=== PATIENT | male | born 1960 | race Caucasian/White ===

== ENCOUNTER 2016-12-17 08:53 | Inpatient (IN) | payer BC ==
[~2016-12-17] VITALS: Ht 175.3 cm; Wt 80.1 kg
--- NOTE | ~2016-12-17 | PN ---
PATIENT:DYLAN SONG Abiel MEDICAL RECORD: [id number] LOCATION:[facility] ADMISSION DATE: 12/17/16 PROGRESS NOTE DATE OF SERVICE: 12/23/2016 CHIEF COMPLAINT: Better. This is a summary of progress note from 12/21/2016, 12/22/2016 and 12/23/2016. Over the course of a 3-day weekend, the patient has improved. Initially when he was advanced to a regular diet, he was having more abdominal pain and tenderness. We backed him off to a full liquid diet. He did well with that and he wants to be advanced back up to a regular diet now. I have examined the purulent drainage from the CT-guided drain. Palpation aggravates. Nothing alleviates. His symptoms are improving. He is not having any nausea or vomiting. This is a progress note addendum. For the typed portion of the progress note including the past medical and surgical history, allergies, social history as well as current medications, please see the chart. REVIEW OF SYSTEMS: No nausea, no vomiting, no fever, no chills. Positive for some mid back pain. Positive for epigastric pain as well as some tenderness. PHYSICAL EXAMINATION: GENERAL: He does appear acutely ill. He does not appear chronically ill. VITAL SIGNS: Reviewed. HEAD: External ears appear normal. EYES: Extraocular movements are intact. NECK: Trachea is midline. CHEST: No intercostal retractions. PULMONARY: Nonlabored, no stridor. ABDOMEN: Epigastric tenderness with guarding. No peritonitis to percussion. EXTREMITIES: No peripheral cyanosis. INTEGUMENT: No rash, no ulcerations. PSYCHIATRIC: Normal affect. NEUROLOGIC: Nonfocal, no lethargy. The patient answers questions appropriately, moves all extremities well. BACK: No thoracic kyphosis. LYMPHATIC: No lymphangitic streaking of the exposed extremities. Over the course of a 3-day weekend, the patient's abdominal pain and tenderness, increased and now has decreased. I am going to advance him up to a regular diet. His Protonix was oral, I am going to switch it over to IV. I have discussed this case personally with Dr. Luke Lyons his surgeon by phone this evening. TRANSINT:[id number] Voice Confirmation ID: [id number] DOCUMENT ID: [id number] PROGRESS NOTE [id number] DYLAN SONG ROBERT MD CC: [id number] DICTATION DATE: 12/23/16 1800 [employer] GRINDER: 12/24/16 0253 ADM IN [facility] [address] [id number]
[2016-12-17 09:32] LABS: BASOPHILS 0.2 % (0-2); EOSINOPHILS 0 % (0-7); HEMATOCRIT 40.1 % (42.0-54.0); HEMOGLOBIN 13.2 g/dL (13.5-17.5); IMMATURE GRANULOCYTES 0.2 % (0-5); LYMPHOCYTES 9.8 % (15-50); MCH 28.8 pg (26.0-34.0); MCHC 32.9 g/dL (31.0-37.0); MCV 87.6 fL (80.0-100.0); MEAN PLATELET VOLUME 9.1 fL (7.4-10.4); MONOCYTES 3.8 % (2-11); PLATELET COUNT 318 10x3/uL (130-400); RBC 4.58 10x6/uL (4.20-6.10); RDW 13.2 % (11.5-14.5); WBC 9.5 10x3/uL (4.8-10.8)
[2016-12-17 09:38] LABS: ALBUMIN 2.7 g/dL (3.4-5.0); ALKALINE PHOSPHATASE 82 U/L (46-116); ALT (SGPT) 49 U/L (10-68); BILIRUBIN - TOTAL 1.28 mg/dL (0.2-1.3); CALC OSMOLALITY 259 mosm/kg (275-300); CALCIUM 9.6 mg/dL (8.5-10.1); CARBON DIOXIDE 25.3 mmol/L (21.0-32.0); CHLORIDE - SERUM 90 mmol/L (98-107); CREATININE - SERUM 0.9 mg/dL (0.6-1.3); GLUCOSE 137 mg/dL (74-106); PROTEIN - SERUM 7.8 g/dL (6.4-8.2); SODIUM 129 mmol/L (136-145); UREA NITROGEN 10 mg/dL (7-18); eGFR NON AFRICAN AMERICAN > 90 mL/min (90-120)
[2016-12-17 09:42] LABS: AMYLASE - SERUM 35 U/L (25-115); LIPASE 105 U/L (73-393); TROPONIN-I < 0.017 ng/mL (0.000-0.060)
--- NOTE | 2016-12-17 15:20 | NUR ---
RECEIVED TO ROOM 2214 VIA STRETCHER FROM ER. A/O X3. C/O LOTS OF ABDOMINAL PAIN WITH ACTIVITY. REQUESTED AND GIVEN 4MG MORPHINE SLOW IVP FOR SAME. WILL MONITOR. SKIN IS INTACT WITHOUT REDNESS. DENIES NEEDS AT THIS TIME.
[2016-12-17 15:25] VITALS: BP 162/92; BMI 25.9
[2016-12-17 16:28] VITALS: BP 150/92
--- NOTE | 2016-12-17 18:00 | NUR ---
RESTING QUIETLY AT THIS TIME. DENIES NEEDS. NO CHANGES.
[2016-12-17 20:00] VITALS: BP 149/81
--- NOTE | 2016-12-17 20:00 | NUR ---
ASESSMENT PER FLOWSHEET. IV PATENT LEFT AC OF NS AT 125CC'S/HR SITE CLEAR. SENIOR UI SOFTWARE ENGINEER OF DILAUDID IN USE WITH SETTINGS AT 0.2MG Q10MIN WITH 4MG Q4H L/O.SR UP X2 CALL LIGHT WITHIN REACH.
--- NOTE | 2016-12-17 21:00 | NUR ---
MEDS GIVEN PER MAR. VOIDS IN URINAL UA SPECIMEN SENT TO LAB.
[2016-12-17 22:15] LABS: APPEARANCE CLEAR (CLEAR); BILIRUBIN NEGATIVE (NEGATIVE); COLOR DK YELLOW (YELLOW); GLUCOSE NEGATIVE (NEGATIVE); KETONE MODERATE mg/dL (NEGATIVE); LEUKOCYTE ESTERASE TRACE (NEGATIVE); NITRITE NEGATIVE (NEGATIVE); PROTEIN TRACE mg/dL (NEGATIVE); SPECIFIC GRAVITY 1.025 (1.005-1.020); UROBILINOGEN NORMAL (NORMAL)
[2016-12-17 22:16] LABS: BACTERIA MODERATE /hpf (NONE SEEN); RED CELLS - URINE 0-5 /hpf (0-5); WHITE CELLS - URINE 0-5 /hpf (0-5)
[2016-12-18] VITALS: BP 126/78
--- NOTE | 2016-12-18 | NUR ---
EYES CLOSED RESPIRATIONS WITH EASE AND UNLABORED.
[2016-12-18 04:00] VITALS: BP 128/87
[2016-12-18 06:10] LABS: APTT 30.1 SECONDS (22.8-39.4); INR 1.16 (0.85-1.17); PROTIME 14.7 SECONDS (11.6-15.0)
--- NOTE | 2016-12-18 06:28 | NUR ---
RESTING QUIETLY DENIES NEEDS.
--- NOTE | 2016-12-18 07:15 | NUR ---
REPORT RECEIVED FROM ADMITTING CLERK NURSE. CALL LIGHT IN REACH.
[2016-12-18 07:56] VITALS: BP 154/85
--- NOTE | 2016-12-18 08:10 | NUR ---
TO SPECIALS VIA BED.
[2016-12-18 08:28] LABS: BASOPHILS 0.1 % (0-2); EOSINOPHILS 0.1 % (0-7); HEMOGLOBIN 12.6 g/dL (13.5-17.5); IMMATURE GRANULOCYTES 0.3 % (0-5); LYMPHOCYTES 5.6 % (15-50); MCH 28.6 pg (26.0-34.0); MCHC 32.3 g/dL (31.0-37.0); MCV 88.4 fL (80.0-100.0); MEAN PLATELET VOLUME 9.2 fL (7.4-10.4); MONOCYTES 5.4 % (2-11); NEUTROPHILS 88.5 % (40-80); PLATELET COUNT 340 10x3/uL (130-400); RBC 4.41 10x6/uL (4.20-6.10); RDW 13.6 % (11.5-14.5); WBC 9.9 10x3/uL (4.8-10.8)
[2016-12-18 08:37] LABS: CALC OSMOLALITY 257 mosm/kg (275-300); CARBON DIOXIDE 25.6 mmol/L (21.0-32.0); CHLORIDE - SERUM 94 mmol/L (98-107); CREATININE - SERUM 0.9 mg/dL (0.6-1.3); GLUCOSE 106 mg/dL (74-106); POTASSIUM - SERUM 3.8 mmol/L (3.5-5.1); SODIUM 129 mmol/L (136-145); UREA NITROGEN 11 mg/dL (7-18); eGFR NON AFRICAN AMERICAN > 90 mL/min (90-120)
--- NOTE | 2016-12-18 09:30 | NUR ---
BACK IN ROOM AT THIS TIME.
--- NOTE | 2016-12-18 10:17 | NUR ---
AM MEDS ADMINISTERED. RIGHT ABSCESS DRAIN FLUSHED WITH 100 CC OF NS.
--- NOTE | 2016-12-18 10:43 | NUR ---
Patient Name: DYLAN SONG Admission Status: ER Accout number: [id number] Admission Date: 12-17-2016 : 1960 Admission Diagnosis: Attending: CAMERON Current LOS: 1 Anticipated DC Date: 12-20-2016 Planned Disposition: Home Primary Insurance: [employer] TRUE BLUE PPO Discharge Planning Comments: CM MET WITH PATIENT REGARDING D/C NEEDS AND PLANS. PATIENT STATED HE LIVES ALONE AND A FRIEND WILL DRIVE HIM HOME AT DISCHARGE. PATIENT STATED HIS HOME IS SAFE AND HAS 3 STEPS W/RAILS TO ENTER AND NO STAIRS INSIDE. PATIENT IS INDEPENDENT WITH HIS CARE AND HAS A WALKER IF NEEDED AT HOME. PATIENTS PCP IS DR. NANCE AND USES [facility] [place]. PATIENT IS DECLINING THE NEED OF HOME HEALTH AT THIS TIME. [facility] DR[facility] [phone] JOSE R (SISTER IN LAW) [phone] Exposure Machine Operator: Shonna Johnson Is the patient Alert and Oriented? Yes 0 * How many steps to enter\exit or inside your home? 3 R 0 * PCP DR. NANCE 0 * Pharmacy [facility] 0 * Preadmission Environment Home Alone 0 * ADLs Independent 0 * Equipment Walker 0 * List name and contact numbers for known caregivers / representatives who currently or will assist patient after discharge: JOSE R SONG [phone] * Community resources currently utilized None 0 * Additional services required to return to the preadmission environment? Yes 0 * Can the patient safely return to the preadmission environment? Yes 0 * Has this patient been hospitalized within the prior 30 days at any hospital? No 0 Grand Total: 0
--- NOTE | 2016-12-18 12:00 | NUR ---
NO NEEDS VOICED AT THIS TIME.
[2016-12-18 12:34] VITALS: BP 152/87
[2016-12-18 14:34] VITALS: Ht 175.3 cm; Wt 80.1 kg
--- NOTE | 2016-12-18 14:45 | NUR ---
DENIES ANY PAIN OR DISTRESS. CALL LIGHT IN REACH.
[2016-12-18 15:50] VITALS: BP 148/89
--- NOTE | 2016-12-18 16:30 | NUR ---
LYING IN BED WATCHING TV. NO NEEDS VOICED. CALL LIGHT IN REACH.
--- NOTE | 2016-12-18 18:20 | NUR ---
NO CHANGES IN INITIAL ASSESSMENT. CALL LIGHT IN REACH. STILL REFUSES SCDs. WILL CONTINUE WITH PLAN OF CARE.
[2016-12-18 19:00] VITALS: BP 171/95
--- NOTE | 2016-12-18 19:25 | NUR ---
SPOKE WITH DR. GORMAN ABOUT PATIENT'S REQUEST FOR FOOD. STATES HE HAS TO CONTINUE TO BE NPO EXCEPT FOR ICE CHIPS. EXPLAINED THIS TO PATIENT. VERBALIZED UNDERSTANDING.
--- NOTE | 2016-12-18 23:10 | NUR ---
REC'D PATIENT SITTING UP IN BED. ALERT AND ORIENTED X4. DENIES PAIN AT THIS TIME. NO DISTRESS NOTED. DENIED FURTHER NEEDS AT THIS TIME. INSTRUCTED TO CALL IF NEEDED ANYTHING. BED LOW, LOCKED CALL LIGHT IN REACH. WILL CONT TO MONITOR THROUGHOUT THE NIGHT.
--- NOTE | 2016-12-19 01:55 | NUR ---
RECITED IV TO LEFT HAND, IV THAT WAS IN THE LEFT FA HAD INFILTRAED AND CAME OUT, CATHETER WAS STILL INTACT. PATIENT TOLERATED WELL. DENIED FURTHER NEEDS AT THIS TIME. BED LOW, LOCKED, CALL LIGHT IN REACH.
[2016-12-19 04:00] VITALS: BP 171/95
[2016-12-19 05:28] LABS: BASOPHILS 0.1 % (0-2); EOSINOPHILS 0 % (0-7); HEMATOCRIT 34.1 % (42.0-54.0); IMMATURE GRANULOCYTES 0.3 % (0-5); LYMPHOCYTES 6.6 % (15-50); MCH 28.4 pg (26.0-34.0); MCHC 32.3 g/dL (31.0-37.0); MCV 87.9 fL (80.0-100.0); MEAN PLATELET VOLUME 9.1 fL (7.4-10.4); MONOCYTES 3.4 % (2-11); NEUTROPHILS 89.6 % (40-80); PLATELET COUNT 316 10x3/uL (130-400); RBC 3.88 10x6/uL (4.20-6.10); RDW 13.4 % (11.5-14.5); WBC 11.6 10x3/uL (4.8-10.8)
[2016-12-19 06:08] LABS: CALC OSMOLALITY 266 mosm/kg (275-300); CALCIUM 8.1 mg/dL (8.5-10.1); CARBON DIOXIDE 26.2 mmol/L (21.0-32.0); CHLORIDE - SERUM 97 mmol/L (98-107); GLUCOSE 78 mg/dL (74-106); SODIUM 134 mmol/L (136-145); UREA NITROGEN 12 mg/dL (7-18)
[2016-12-19 06:13] LABS: CREATININE - SERUM 0.6 mg/dL (0.6-1.3); eGFR NON AFRICAN AMERICAN > 90 mL/min (90-120)
[2016-12-19 07:54] VITALS: BP 182/95
--- NOTE | 2016-12-19 08:25 | NUR ---
SCHEDULED MEDICATIONS ADMINISTERED AT THIS TIME. ASSESSMENT PERFORMED PER FLOWSHEET. IV SITE PATENT AND BILIARY DRAIN PATENT. CALL LIGHT IN REACH, DENIES FURTHER NEEDS AT PRESENT TIME. RESPIRATIONS EVEN AND NON LABORED AND PT IS SELF AMBULATORY.
[2016-12-19 12:19] VITALS: BP 178/105
--- NOTE | 2016-12-19 12:37 | NUR ---
SPOKE WITH DR GREENWOOD REGARDING PT'S BLOOD PRESSURE. NO NEW ORDERS GIVEN HE SAID, "THAT IS DOWN FROM EARLIER."
[2016-12-19 15:37] VITALS: BP 170/91
--- NOTE | 2016-12-19 16:20 | NUR ---
PRN ATIVAN ADMINISTERED AT THIS TIME FOR ABDOMINAL SPASMS ON THE RIGHT SIDE. EXPLAINED TO PT THAT THIS MEDICATION COULD MAKE HIM DROWSY AND HE VERBALIZED UNDERSTANDING. CALL LIGHT IN REACH, WILL CONTINUE WITH PLAN OF CARE.
[2016-12-19 20:00] VITALS: BP 156/82
[2016-12-20] VITALS: BP 162/93
--- NOTE | 2016-12-20 02:52 | NUR ---
PT SLEEPING. RESP EVEN, UNLABORED. NO DISTRESS NOTED. CHILD [facility] WORKER FOR PAIN CONTROL. CONTINUE BEAD CUTTER'S PLAN OF CARE.
[2016-12-20 04:00] VITALS: BP 177/104
--- NOTE | 2016-12-20 06:49 | NUR ---
NO CHANGES SINCE ASSESSMENT COMPLETED.
--- NOTE | 2016-12-20 07:15 | NUR ---
REPORT RECEIVED FROM RESIDENTIAL CARE FACILITY MANAGER NURSE. CALL LIGHT IN REACH.
[2016-12-20 08:13] VITALS: BP 169/102
--- NOTE | 2016-12-20 09:57 | NUR ---
ASSESSMENT COMPLETED. NORCO PO WITH AM MEDS ADMINISTERED. REFUSES SCDs. IV SL'D. CALL LIGHT IN REACH. WILL CONTINUE WITH PLAN OF CARE.
[2016-12-20 11:58] VITALS: BP 170/99
[2016-12-20 16:10] VITALS: BP 188/103
--- NOTE | 2016-12-20 19:49 | NUR ---
ASSUMED CARE OF PATIENT. AAO TIMES 4 DENIES NEEDS OR PAIN. BED LOW CL IN REACH.
[2016-12-20 20:00] VITALS: BP 170/95
[2016-12-21] VITALS: BP 162/91
--- NOTE | 2016-12-21 01:25 | NUR ---
PATIENT RESTING WITH EYES CLOSED AND NO VISIBLE SIGNS OF DISTRESS. BED IN LOWEST POSITION AND CALL LIGHT WITHIN REACH.
[2016-12-21 04:00] VITALS: BP 178/91
[2016-12-21 06:05] LABS: BASOPHILS 0.2 % (0-2); EOSINOPHILS 0.1 % (0-7); HEMATOCRIT 35.9 % (42.0-54.0); HEMOGLOBIN 11.7 g/dL (13.5-17.5); IMMATURE GRANULOCYTES 0.5 % (0-5); LYMPHOCYTES 11.4 % (15-50); MCH 28.2 pg (26.0-34.0); MCHC 32.6 g/dL (31.0-37.0); MCV 86.5 fL (80.0-100.0); MEAN PLATELET VOLUME 8.8 fL (7.4-10.4); MONOCYTES 9.8 % (2-11); RBC 4.15 10x6/uL (4.20-6.10); RDW 13.4 % (11.5-14.5); WBC 9.2 10x3/uL (4.8-10.8)
[2016-12-21 06:08] LABS: PLATELET COUNT 388 10x3/uL (130-400)
[2016-12-21 06:19] LABS: CALC OSMOLALITY 262 mosm/kg (275-300); CALCIUM 8.5 mg/dL (8.5-10.1); CARBON DIOXIDE 28.1 mmol/L (21.0-32.0); CHLORIDE - SERUM 94 mmol/L (98-107); CREATININE - SERUM 0.6 mg/dL (0.6-1.3); GLUCOSE 97 mg/dL (74-106); SODIUM 132 mmol/L (136-145); UREA NITROGEN 7 mg/dL (7-18); eGFR NON AFRICAN AMERICAN > 90 mL/min (90-120)
[2016-12-21 06:23] LABS: POTASSIUM - SERUM 2.9 mmol/L (3.5-5.1)
--- NOTE | 2016-12-21 06:47 | NUR ---
PATIENT PLACED ON ELECTROLYTE PROTOCOL FOR HIS POTASSIUM LEVEL BEING 2.9.
--- NOTE | 2016-12-21 07:30 | NUR ---
RECIEVED PT DURING WALKING ROUNDS. PT RESTING IN BED WITH NO COMPLAINTS OF PAIN OR DISCOMFORT AT THIS TIME. ASSESSMENT DONE PER FLOWSHEET. BED IN LOW POSITION AND CALL LIGHT WITHIN REACH. WILL CONTINUE TO MONITOR.
[2016-12-21 08:49] VITALS: BP 166/103
[2016-12-21 12:19] VITALS: BP 147/91
--- NOTE | 2016-12-21 14:15 | NUR ---
FLUSHED BILI DRAIN AT THIS TIME PER ORDER. PT TOLERATED WELL. BED IN LOW POSITION AND CALL LIGHT WITHIN REACH. WILL CONTINUE TO MONITOR.
[2016-12-21 16:37] VITALS: BP 153/102
[2016-12-21 20:00] VITALS: BP 172/97
[2016-12-22] VITALS: BP 156/93
[2016-12-22 04:00] VITALS: BP 173/76
--- NOTE | 2016-12-22 04:00 | NUR ---
PATIENT SLEEPING WITH NO DISTRESS NOTED. AGREE WITH FOOT GATHERER ASSEESSMENT.
--- NOTE | 2016-12-22 06:32 | NUR ---
DR HOU INFORMED OF PLATELET COUNT DROPPED FROM 21-20 DURING THE NIGHT
--- NOTE | 2016-12-22 07:30 | NUR ---
RECIEVED PT DURING WALKING ROUNDS. PT RESTING IN BED WITH COMPLAINTS OF PAIN OF A 2 ON A SCALE OF 1-10. ASSESSMENT DONE PER FLOWSHEET, BED IN LOW POSITION AND CALL LIGHT WITHIN REACH, WILL CONTINUE TO MONITOR.
[2016-12-22 08:06] LABS: BASOPHILS 0.1 % (0-2); EOSINOPHILS 0.2 % (0-7); HEMATOCRIT 35.8 % (42.0-54.0); HEMOGLOBIN 11.8 g/dL (13.5-17.5); IMMATURE GRANULOCYTES 0.9 % (0-5); LYMPHOCYTES 11.4 % (15-50); MCH 28.3 pg (26.0-34.0); MCV 85.9 fL (80.0-100.0); MEAN PLATELET VOLUME 8.5 fL (7.4-10.4); MONOCYTES 10.6 % (2-11); NEUTROPHILS 76.8 % (40-80); PLATELET COUNT 368 10x3/uL (130-400); RBC 4.17 10x6/uL (4.20-6.10); RDW 13.7 % (11.5-14.5); WBC 10.6 10x3/uL (4.8-10.8)
[2016-12-22 08:22] LABS: ALBUMIN 1.9 g/dL (3.4-5.0); ALKALINE PHOSPHATASE 38 U/L (46-116); ALT (SGPT) 21 U/L (10-68); CALC OSMOLALITY 262 mosm/kg (275-300); CARBON DIOXIDE 28.9 mmol/L (21.0-32.0); CHLORIDE - SERUM 96 mmol/L (98-107); CREATININE - SERUM 0.6 mg/dL (0.6-1.3); GLUCOSE 96 mg/dL (74-106); POTASSIUM - SERUM 3.5 mmol/L (3.5-5.1); PROTEIN - SERUM 6.4 g/dL (6.4-8.2); SODIUM 132 mmol/L (136-145); UREA NITROGEN 6 mg/dL (7-18); eGFR NON AFRICAN AMERICAN > 90 mL/min (90-120)
[2016-12-22 09:29] VITALS: BP 185/95
--- NOTE | 2016-12-22 12:10 | NUR ---
PT RESTING IN BED WITH COMPLAINTS OF SLIGHT PAIN IN THE RIGHT FLANK AREA OF A 3 ON A SCALE OF 1-10. NO PAIN MEDICATION TO BE GIVEN AT THIS TIME. PT STATES AT THIS TIME THAT HE IS FINALLY ABLE TO PASS SOME GAS AND FEELS SLIGHT RELIEF FROM DOING SO. BED IN LOW POSITION AND CALL LIGHT WITHIN REACH. WILL CONTINUE TO MONITOR.
[2016-12-22 12:46] VITALS: BP 156/95
[2016-12-22 16:29] VITALS: BP 172/97
[2016-12-22 19:50] VITALS: BP 178/101
--- NOTE | 2016-12-22 19:50 | NUR ---
ASSESSMENT COMPLETED NO ACUTE DISTRESS NOTED, BILI DRAIN IN PLACE TO R SIDE, NO DRAINAGE OBSERVED AT THIS TIME, REFUSES SCD'S, DENIES NEEDS, SR'S UP, CL IN REACH
--- NOTE | 2016-12-22 20:02 | NUR ---
PRN NORCO GIVEN FOR C/O SIDE PAIN 10/04 ALONG WITH ROUTINE MOM, BILI DRAIN FLUSHED WITH 10CC NS, MIGUELINA WELL, DENIES NEEDS AT THIS TIME, SR UP, CL IN REACH
--- NOTE | 2016-12-22 21:39 | NUR ---
BP CONTINUES TO BE ELEVATED, PT ASYMPTOMATIC, C/O SPASMS IN R SIDE AND BEING FRUSTRATED, PRN ATIVAN GIVEN PER SEP, MIGUELINA WELL, WILL MONITOR
--- NOTE | 2016-12-22 23:10 | NUR ---
DR GORMAN CONTACTED ABOUT ELEVATED BP, PRN HYDRALAZINE GIVEN PER ORDERS, MIGUELINA WELL, WILL CONTINUE TO MONITOR
[2016-12-23 01:43] VITALS: BP 175/99
--- NOTE | 2016-12-23 02:39 | NUR ---
BP 172/100, PRN APRESSOLINE GIVEN PER ORDERS ALONG WITH NORCO PER REQUEST FOR SIDE PAIN, MIGUELINA WELL, SR'S UP, CL IN REACH
[2016-12-23 06:20] VITALS: BP 159/93
--- NOTE | 2016-12-23 07:05 | NUR ---
PT REC'D FROM [facility]. RESTING IN BED WITH EYES CLOSED. EASILY AROUSED. AAOX4. NO COMPLAINTS OF PAIN. BILI DRAIN TO R LOWER ABD HAS NO DRAINAGE IN IT AT THIS TIME. DRESSING AROUND INSERTION SITE FREE OF REDNESS AND SWELLING. PIV TO L FA FREE OF REDNESS AND SWELLING. BED LOW, CALL LIGHT IN REACH, DENIES NEEDS. CPOC.
[2016-12-23 08:40] VITALS: BP 164/71
--- NOTE | 2016-12-23 09:30 | NUR ---
MORNING MEDS PASSED AT THIS TIME. PT RESTING IN BED WITH EYES CLOSED, BUT EASILY AROUSED. STILL NO OUTPUT IN BILIDRAIN. BED LOW, CALL LIGHT IN REACH, DENIES NEEDS. CPOC.
--- NOTE | 2016-12-23 11:32 | NUR ---
PT UP AMBULATING AROUND ROOM TO BATHROOM. NO COMPLAINTS. DENIES NEEDS AT THIS TIME.
[2016-12-23 12:44] VITALS: BP 169/101
[2016-12-23 17:24] VITALS: BP 184/99
--- NOTE | 2016-12-23 19:30 | NUR ---
SITTING UP IN BED WATCHING TV, ASSESSMENT COMPLETED, NO ACUTE DISTRESS NOTED, DRAIN TO R SIDE TO GRAVITY, DENIES PAIN OR NEEDS AT THIS TIME, FALL PRECAUTIONS IN PLACE, CL IN REACH, WILL MONITOR
[2016-12-23 20:00] VITALS: BP 186/101
--- NOTE | 2016-12-23 21:33 | NUR ---
PRN NORCO GIVEN FOR C/O R SIDE PAIN, REFUSED MOM, PRN APRESSOLINE GIVEN FOR BP 186/101, PT ASYPMTOMATIC, NO DISTRESS NOTED, BILI DRAIN FLUSHED PER ORDERS, MIGUELINA WELL, CL IN REACH
--- NOTE | 2016-12-23 23:20 | NUR ---
RESTING WITH EYES CLOSED, RESP WITH EASE, NO ACUTE DISTRESS NOTED, FALL PRECAUTIONS IN PLACE, CL IN REACH
[2016-12-24] VITALS: BP 141/83
[2016-12-24 05:18] LABS: BASOPHILS 0 % (0-2); EOSINOPHILS 0.1 % (0-7); HEMATOCRIT 35.9 % (42.0-54.0); HEMOGLOBIN 11.8 g/dL (13.5-17.5); IMMATURE GRANULOCYTES 0.9 % (0-5); LYMPHOCYTES 11.6 % (15-50); MCH 28.2 pg (26.0-34.0); MCHC 32.9 g/dL (31.0-37.0); MCV 85.7 fL (80.0-100.0); MEAN PLATELET VOLUME 8.8 fL (7.4-10.4); MONOCYTES 9.2 % (2-11); NEUTROPHILS 78.2 % (40-80); RBC 4.19 10x6/uL (4.20-6.10); RDW 13.7 % (11.5-14.5); WBC 10.2 10x3/uL (4.8-10.8)
[2016-12-24 05:26] LABS: PLATELET COUNT 521 10x3/uL (130-400)
[2016-12-24 05:28] LABS: ALBUMIN 1.8 g/dL (3.4-5.0); ALKALINE PHOSPHATASE 33 U/L (46-116); ALT (SGPT) 18 U/L (10-68); CALC OSMOLALITY 258 mosm/kg (275-300); CALCIUM 8.6 mg/dL (8.5-10.1); CARBON DIOXIDE 27.6 mmol/L (21.0-32.0); CHLORIDE - SERUM 95 mmol/L (98-107); CREATININE - SERUM 0.6 mg/dL (0.6-1.3); GLUCOSE 103 mg/dL (74-106); MAGNESIUM - SERUM 2.1 mg/dL (1.8-2.4); PHOSPHOROUS 4.2 mg/dL (2.5-4.9); POTASSIUM - SERUM 3.4 mmol/L (3.5-5.1); SODIUM 130 mmol/L (136-145); UREA NITROGEN 6 mg/dL (7-18); eGFR NON AFRICAN AMERICAN > 90 mL/min (90-120)
--- NOTE | 2016-12-24 07:39 | NUR ---
PT REC'D FROM BETY NIXON. RESTING IN BED WITH EYES CLOSED. NO SIGNS OF DISTRESS. RESP EVEN AND UNLABORED. BED LOW, CALL LIGHT IN REACH, DENIES NEEDS. CPOC.
[2016-12-24 07:54] VITALS: BP 160/87
--- NOTE | 2016-12-24 08:00 | NUR ---
PT HERE FOR FERFORATED VISCUS FOR THIS VISIT IV TO LEFT FOREARM PATENT AND INTACT BILI DRAIN TO RIGHT SIDE PATENT AND INTACT PT DENIES NEEDS AT THIS TIME. BED ON LOWEST SETTING CALL LIGHT WITHIN REACH WILL CONTINUE TO MONITOR
--- NOTE | 2016-12-24 08:30 | NUR ---
MORNING MEDS PASSED AT THIS TIME. RESTING IN BED EATING BREAKFAST. NO COMPLAINTS OF PAIN. BED LOW, CALL LIGHT IN REACH, DENIES NEEDS. CPOC.
--- NOTE | 2016-12-24 10:28 | NUR ---
PT BEING ESCORTED VIA WC TO HAVE CT DONE.
--- NOTE | 2016-12-24 10:36 | NUR ---
PT RETURNED TO ROOM FROM CT SCAN VIA WC. ABLE TO AMBULATE TO BED WITHOUT DIFFICULTY.
[2016-12-24 12:03] VITALS: BP 151/86
[2016-12-24] MEDS ORDERED: LEVAQUIN750 MG PO (15:03)
[2016-12-24] MEDS ORDERED: PROTONIX40 MG PO (15:04)
[2016-12-24 16:00] VITALS: BP 139/76
--- NOTE | 2016-12-24 18:54 | NUR ---
DC INSTRUCTIONS AND FOLLOW UP APPOINTMENTS DISCUSSED AT THIS TIME. NO QUESTIONS OR CONCERNS VOICED. IV TO R FA DC'D WITH CATHETER INTACT. DC PAPERS SIGNED. ESCORTED OUT VIA WC.
== END 2016-12-24 18:56 | disposition home or self-care (01) | DRG 380 ==
LOC: D.ER 08:53 → D.MS 13:39
PROVIDERS: Emergency Medicine; Family Medicine; Radiology Diagnostic Radiology; Surgery; ADMIT Surgery
PROC: 0W9G30Z Drainage of Peritoneal Cavity with Drainage Device, Percutaneous Approach (ICD-10-PCS; principal; 2016-12-18 08:50)
DX: K26.5 Chronic or unspecified duodenal ulcer with perforation (principal); K65.1 Peritoneal abscess; F17.200 Nicotine dependence, unspecified, uncomplicated

== ENCOUNTER 2016-12-31 10:17 | Inpatient (IN) | payer BC ==
[~2016-12-31] VITALS: Ht 175.3 cm; Wt 77.5 kg
[~2016-12-31 10:17] MED LIST: LEVAQUIN750 MG PO; PROTONIX40 MG PO
[2016-12-31 11:14] LABS: BASOPHILS 0.1 % (0-2); EOSINOPHILS 0 % (0-7); HEMOGLOBIN 12.9 g/dL (13.5-17.5); IMMATURE GRANULOCYTES 0.3 % (0-5); LYMPHOCYTES 12.6 % (15-50); MCH 28.2 pg (26.0-34.0); MCHC 33.1 g/dL (31.0-37.0); MCV 85.2 fL (80.0-100.0); MEAN PLATELET VOLUME 8.8 fL (7.4-10.4); MONOCYTES 8.4 % (2-11); NEUTROPHILS 78.6 % (40-80); PLATELET COUNT 560 10x3/uL (130-400); RBC 4.58 10x6/uL (4.20-6.10); RDW 14.2 % (11.5-14.5); WBC 9.2 10x3/uL (4.8-10.8)
[2016-12-31 11:35] LABS: ALBUMIN 3.2 g/dL (3.4-5.0); ALKALINE PHOSPHATASE 50 U/L (46-116); ALT (SGPT) 19 U/L (10-68); BILIRUBIN - TOTAL 0.67 mg/dL (0.2-1.3); CALC OSMOLALITY 261 mosm/kg (275-300); CALCIUM 9.8 mg/dL (8.5-10.1); CARBON DIOXIDE 27.4 mmol/L (21.0-32.0); CHLORIDE - SERUM 90 mmol/L (98-107); CREATININE - SERUM 0.7 mg/dL (0.6-1.3); GLUCOSE 118 mg/dL (74-106); POTASSIUM - SERUM 4.2 mmol/L (3.5-5.1); PROTEIN - SERUM 8.1 g/dL (6.4-8.2); SODIUM 129 mmol/L (136-145); UREA NITROGEN 17 mg/dL (7-18); eGFR NON AFRICAN AMERICAN > 90 mL/min (90-120)
[2016-12-31 15:29] LABS: APPEARANCE CLEAR (CLEAR); BACTERIA NONE SEEN /hpf (NONE SEEN); BILIRUBIN NEGATIVE (NEGATIVE); COLOR YELLOW (YELLOW); EPITHELIAL CELLS NSEEN /hpf (0-5); GLUCOSE NEGATIVE (NEGATIVE); KETONE MODERATE mg/dL (NEGATIVE); LEUKOCYTE ESTERASE NEGATIVE (NEGATIVE); NITRITE NEGATIVE (NEGATIVE); PROTEIN 1+ mg/dL (NEGATIVE); RED CELLS - URINE OCC /hpf (0-5); SPECIFIC GRAVITY 1.015 (1.005-1.020); UROBILINOGEN NORMAL (NORMAL); WHITE CELLS - URINE NSEEN /hpf (0-5)
--- NOTE | 2016-12-31 17:15 | NUR ---
TO ROOM 2215 FROM ER VIA WHEELCHAIR.PT WITHOUT DISTRESS.NGT TO LIWS WITH MINIMAL DRAINAGE COMING THROUGH TUBE.ORDERS INITIATED ORDERED.IV SITED TO LEFT FOREARM X1 STICK USING ASEPTIC TECH,22G FOR PROTONIX DRIP.ORIENTATION TO ROOM.CALL LIGHT IN REACH
[2016-12-31 18:48] VITALS: BP 158/92; BMI 25.9
[2016-12-31 20:00] VITALS: BP 134/84
[2017-01-01 04:00] VITALS: BP 152/81
[2017-01-01 05:18] LABS: BASOPHILS 0 % (0-2); EOSINOPHILS 0.4 % (0-7); HEMATOCRIT 35.5 % (42.0-54.0); HEMOGLOBIN 11.6 g/dL (13.5-17.5); IMMATURE GRANULOCYTES 0.3 % (0-5); LYMPHOCYTES 4.1 % (15-50); MCH 28.2 pg (26.0-34.0); MCHC 32.7 g/dL (31.0-37.0); MCV 86.4 fL (80.0-100.0); MEAN PLATELET VOLUME 8.8 fL (7.4-10.4); MONOCYTES 11.5 % (2-11); NEUTROPHILS 83.7 % (40-80); PLATELET COUNT 456 10x3/uL (130-400); RBC 4.11 10x6/uL (4.20-6.10); RDW 14.3 % (11.5-14.5)
[2017-01-01 05:30] LABS: WBC 6.8 10x3/uL (4.8-10.8)
[2017-01-01 05:39] LABS: ALKALINE PHOSPHATASE 38 U/L (46-116); CALC OSMOLALITY 266 mosm/kg (275-300); CALCIUM 8.2 mg/dL (8.5-10.1); CARBON DIOXIDE 27.5 mmol/L (21.0-32.0); CHLORIDE - SERUM 98 mmol/L (98-107); GLUCOSE 90 mg/dL (74-106); MAGNESIUM - SERUM 1.9 mg/dL (1.8-2.4); PHOSPHOROUS 3.4 mg/dL (2.5-4.9); POTASSIUM - SERUM 3.8 mmol/L (3.5-5.1); PRE-ALBUMIN 15.5 mg/dL (18.0-35.7); SODIUM 133 mmol/L (136-145); UREA NITROGEN 14 mg/dL (7-18)
[2017-01-01 05:40] LABS: ALBUMIN 2.3 g/dL (3.4-5.0); ALT (SGPT) 14 U/L (10-68); CREATININE - SERUM 0.5 mg/dL (0.6-1.3); PROTEIN - SERUM 5.8 g/dL (6.4-8.2); eGFR NON AFRICAN AMERICAN > 90 mL/min (90-120)
[2017-01-01 06:26] LABS: HELICOBACTER PYLORI IGG NEGATIVE (NEGATIVE)
--- NOTE | 2017-01-01 07:30 | NUR ---
ASSESSMENT COMPLETE. IV TO L FA PATENT. NS INFUSING AT 125 CC/HR VIA PUMP. BILLING MANAGER DILAUDID 0.2-10-0 IN USE FOR PAIN CONTROL. IV TO L FA PATENT. PROTONIX INFUSING AT 10 CC/HR VIA PUMP. NG TO LIS WITH ORANGISH COLORED DRAINAGE NOTED IN CANNISTER.
[2017-01-01 07:49] VITALS: BP 140/82
--- NOTE | 2017-01-01 09:00 | NUR ---
RESTING QUIETLY IN BED. DENIES ANY NEEDS AT PRESENT.
[2017-01-01 10:44] VITALS: Ht 175.3 cm; Wt 77.5 kg
--- NOTE | 2017-01-01 11:00 | NUR ---
AMBULATING IN HALLWAY.
[2017-01-01 12:19] VITALS: BP 170/92
--- NOTE | 2017-01-01 13:55 | NUR ---
NG TUBE DC'D. TIP INTACT. TOLERATED WELL. DENIES ANY NEEDS AT PRESENT.
--- NOTE | 2017-01-01 13:59 | NUR ---
* Is the patient Alert and Oriented? Yes 0 * How many steps to enter\exit or inside your home? 3 0 * PCP MAMADOU 0 * Pharmacy [facility] [address] [place] 0 * Preadmission Environment Home Alone 0 * ADLs Independent 0 * Equipment None 0 * List name and contact numbers for known caregivers / representatives who currently or will assist patient after discharge: MICHEL PAREKH 0 * Community resources currently utilized None 0 * Additional services required to return to the preadmission environment? No 0 * Can the patient safely return to the preadmission environment? Yes 0 * Has this patient been hospitalized within the prior 30 days at any hospital? Yes 0 Grand Total: 0 Patient Name: DYLAN SONG Admission Status: ER Accout number: [id number] Admission Date: 12-31-2016 : 1960 Admission Diagnosis: Attending: VINCENZO Current LOS: 1 Anticipated DC Date: 01-03-2017 Planned Disposition: Home Primary Insurance: [employer] TRUE BLUE PPO Discharge Planning Comments: CM met with patient to assess discharge planning/needs. Patient lives home alone and states that his friend Michel Parekh will be the one to drive him home. He states that his environment is safe to return home too. Patient refuses HH at this time. CM will continue to follow and assist as needed with discharge planning/needs. PCP: mamadou Pharmacy: [facility] [address] Michel Parekh (ice delivery driver) Vp Marketing: Vielka Mitchell
--- NOTE | 2017-01-01 14:30 | NUR ---
TOLERATED CLEAR LIQUID DIET AT THIS TIME.
[2017-01-01 15:35] VITALS: BP 174/90
[2017-01-01 20:00] VITALS: BP 166/90
--- NOTE | 2017-01-01 20:00 | NUR ---
ASSESSMENT PER FLOWSHEET. IV PATENT LEFT ARM OF NS AT 125CC'S/HR SITE CLEAR. PROTONIX GTT AT 10 CC'S/HR. AMMONIUM NITRATE NEUTRALIZER OF DILAUDID IN USE WITH SETTINGS AT 0.2MG Q10MIN WITH NO L/O. SR UP X2 CALL LIGHT WITHIN REACH. TAKING PO FLUIDS WELL.
--- NOTE | 2017-01-01 22:00 | NUR ---
MEDS PER MAR.
--- NOTE | 2017-01-02 | NUR ---
EYES CLOSED RESPIRATIONS WITH EASE AND UNLABORED. DENIES NEEDS.
--- NOTE | 2017-01-02 03:30 | NUR ---
RESTING QUIETLY DENIES NEEDS. BODY IN GOOD ALIGNMENT.
[2017-01-02 04:00] VITALS: BP 173/97
--- NOTE | 2017-01-02 07:30 | NUR ---
ASSESSMENT COMPLETE. IV'S TO L FA BOTH WITH REDNESS AND TENDERNESS. IV'S REMOVED. CATHETER TIPS INTACT. CLINICAL OFFICE TECHNICIAN DILAUID 0.2-10-0 IN USE FOR PAIN CONTROL.
[2017-01-02 07:55] VITALS: BP 163/91
--- NOTE | 2017-01-02 08:05 | NUR ---
PATIENT RESTING IN BED. PATIENT IS AWAKE, ALERT, AND ORIENTED X4. NEW IV RESITED USING A 22 G CATHETER NEEDLE X 2 ATTEMPTS IN PATIENT'S RIGHT FOREARM. PATIENT TOLERATED WELL. BED LINENS CHANGED. PATIENT DENIES ANY FURTHER NEEDS. CALL LIGHT IN PATIENT'S REACH. WILL MONITOR.
--- NOTE | 2017-01-02 08:15 | NUR ---
OFF FLOOR TO XRAY VIA WC.
--- NOTE | 2017-01-02 10:00 | NUR ---
IV RECONNECTED TO FLUIDS AND ANTIBIOTICS. PATIENT WAS REFUSING TO HAVE IV CONNECTED UNTIL RETURNING FROM XRAY, UNTIL FINISHED EATING BREAKFAST, UNTIL FINISHED SHOWERING AND SHAVING. VISITING WITH COMPANY.
[2017-01-02 11:21] LABS: BASOPHILS 0.1 % (0-2); EOSINOPHILS 0 % (0-7); HEMATOCRIT 35.4 % (42.0-54.0); HEMOGLOBIN 11.4 g/dL (13.5-17.5); IMMATURE GRANULOCYTES 0.2 % (0-5); LYMPHOCYTES 7.6 % (15-50); MCH 28.3 pg (26.0-34.0); MCHC 32.2 g/dL (31.0-37.0); MCV 87.8 fL (80.0-100.0); MEAN PLATELET VOLUME 8.7 fL (7.4-10.4); MONOCYTES 10.3 % (2-11); NEUTROPHILS 81.8 % (40-80); PLATELET COUNT 395 10x3/uL (130-400); RBC 4.03 10x6/uL (4.20-6.10)
[2017-01-02 11:23] LABS: WBC 9.5 10x3/uL (4.8-10.8)
[2017-01-02 11:28] LABS: ALBUMIN 2.4 g/dL (3.4-5.0); ALKALINE PHOSPHATASE 38 U/L (46-116); ALT (SGPT) 14 U/L (10-68); BILIRUBIN - TOTAL 0.62 mg/dL (0.2-1.3); CALC OSMOLALITY 262 mosm/kg (275-300); CALCIUM 8.5 mg/dL (8.5-10.1); CARBON DIOXIDE 28.2 mmol/L (21.0-32.0); CHLORIDE - SERUM 95 mmol/L (98-107); CREATININE - SERUM 0.6 mg/dL (0.6-1.3); GLUCOSE 91 mg/dL (74-106); POTASSIUM - SERUM 3.5 mmol/L (3.5-5.1); PROTEIN - SERUM 6.2 g/dL (6.4-8.2); SODIUM 132 mmol/L (136-145); eGFR NON AFRICAN AMERICAN > 90 mL/min (90-120)
[2017-01-02 11:34] LABS: UREA NITROGEN 8 mg/dL (7-18)
[2017-01-02 12:10] VITALS: BP 155/92
--- NOTE | 2017-01-02 14:00 | NUR ---
DENIES ANY NEEDS AT PRESENT. REPORTS PASSING FLATUS ONCE TODAY. DENIES ANY COMPLAINTS OF NAUSEA OR PAIN AT THIS TIME.
[2017-01-02 15:44] VITALS: BP 162/91
--- NOTE | 2017-01-02 18:04 | NUR ---
DENIES ANY NEEDS AT PRESENT. REPORTS ABDOMEN FEELING FULL. DENIES ANY NEEDS AT PRESENT.
[2017-01-02 20:00] VITALS: BP 178/91
[2017-01-03] VITALS: BP 165/88
[2017-01-03 04:00] VITALS: BP 151/92
[2017-01-03 06:03] LABS: BASOPHILS 0.1 % (0-2); EOSINOPHILS 0.3 % (0-7); HEMATOCRIT 32.3 % (42.0-54.0); HEMOGLOBIN 10.5 g/dL (13.5-17.5); IMMATURE GRANULOCYTES 0.3 % (0-5); LYMPHOCYTES 16.2 % (15-50); MCH 27.8 pg (26.0-34.0); MCHC 32.5 g/dL (31.0-37.0); MONOCYTES 12.5 % (2-11); NEUTROPHILS 70.6 % (40-80); PLATELET COUNT 346 10x3/uL (130-400); RBC 3.78 10x6/uL (4.20-6.10); RDW 13.9 % (11.5-14.5); WBC 7.5 10x3/uL (4.8-10.8)
[2017-01-03 06:13] LABS: MCV 85.4 fL (80.0-100.0)
[2017-01-03 07:07] LABS: ALKALINE PHOSPHATASE 34 U/L (46-116); ALT (SGPT) 13 U/L (10-68); CALC OSMOLALITY 261 mosm/kg (275-300); CALCIUM 7.9 mg/dL (8.5-10.1); CARBON DIOXIDE 24.7 mmol/L (21.0-32.0); CHLORIDE - SERUM 97 mmol/L (98-107); CREATININE - SERUM 0.4 mg/dL (0.6-1.3); GLUCOSE 72 mg/dL (74-106); POTASSIUM - SERUM 3.3 mmol/L (3.5-5.1); PROTEIN - SERUM 5.4 g/dL (6.4-8.2); SODIUM 133 mmol/L (136-145); UREA NITROGEN 3 mg/dL (7-18); eGFR NON AFRICAN AMERICAN > 90 mL/min (90-120)
--- NOTE | 2017-01-03 07:30 | NUR ---
ASSESSMENT COMPLETE. IV TO R FA PATENT. NS INFUSING AT 125 CC/HR VIA PUMP. LOSS PREVENTION OPERATIONS MANAGER DILAUDID 0.2-10-0 IN USE FOR PAIN CONTROL. DENIES ANY COMPLAINT OF PAIN OR NAUSEA AT THIS TIME.
--- NOTE | 2017-01-03 07:31 | NUR ---
REC'D. AT CHGE OF SHIFT EYES CLOSED RESP. DEEP AND EVEN.WILL CONTINUE TO MONITOR FOR ANY CHGES AND FOLLOW CURRENT PLAN OF CARE.
[2017-01-03 08:16] VITALS: BP 168/88
--- NOTE | 2017-01-03 10:00 | NUR ---
DENIES ANY NEEDS AT PRESENT. TOLERATING CLEAR LIQUID DIET.
--- NOTE | 2017-01-03 12:32 | NUR ---
NUTRITION MONITORING & EVAL CHART REVIEWED. STARTED ON CLEAR LIQUID DIET. WILL MONITOR DIET ADVANCEMENT. PT PROGRESS. RD FOLLOWING
[2017-01-03 12:37] VITALS: BP 142/82
--- NOTE | 2017-01-03 14:00 | NUR ---
AMBULATING IN HALLWAY. DENIES ANY NEEDS AT PRESENT.
[2017-01-03 16:48] VITALS: BP 132/74
--- NOTE | 2017-01-03 18:29 | NUR ---
SITTING UP IN CHAIR. TOLERATING FULL LIQUID DIET AT THIS TIME.
[2017-01-03 20:00] VITALS: BP 159/70
[2017-01-04] VITALS: BP 163/97
[2017-01-04 04:00] VITALS: BP 185/92
--- NOTE | 2017-01-04 05:40 | NUR ---
NOTIFIED BY RENAN HAILE THAT PATIENT'S BP IS 185/92
[2017-01-04 06:49] LABS: BASOPHILS 0.2 % (0-2); EOSINOPHILS 0.5 % (0-7); HEMATOCRIT 34.5 % (42.0-54.0); HEMOGLOBIN 11.5 g/dL (13.5-17.5); IMMATURE GRANULOCYTES 0.2 % (0-5); LYMPHOCYTES 16.6 % (15-50); MCH 28.2 pg (26.0-34.0); MCHC 33.3 g/dL (31.0-37.0); MCV 84.6 fL (80.0-100.0); MEAN PLATELET VOLUME 8.6 fL (7.4-10.4); MONOCYTES 12.6 % (2-11); NEUTROPHILS 69.9 % (40-80); PLATELET COUNT 340 10x3/uL (130-400); RBC 4.08 10x6/uL (4.20-6.10); RDW 13.9 % (11.5-14.5); WBC 6.3 10x3/uL (4.8-10.8)
[2017-01-04 07:03] LABS: ALKALINE PHOSPHATASE 37 U/L (46-116); ALT (SGPT) 11 U/L (10-68); BILIRUBIN - TOTAL 0.63 mg/dL (0.2-1.3); CALCIUM 7.9 mg/dL (8.5-10.1); CARBON DIOXIDE 24.7 mmol/L (21.0-32.0); CHLORIDE - SERUM 97 mmol/L (98-107); CREATININE - SERUM 0.4 mg/dL (0.6-1.3); GLUCOSE 78 mg/dL (74-106); PROTEIN - SERUM 5.5 g/dL (6.4-8.2); SODIUM 132 mmol/L (136-145); eGFR NON AFRICAN AMERICAN > 90 mL/min (90-120)
[2017-01-04 07:08] LABS: CALC OSMOLALITY 260 mosm/kg (275-300); UREA NITROGEN 4 mg/dL (7-18)
[2017-01-04 07:13] LABS: POTASSIUM - SERUM 2.9 mmol/L (3.5-5.1)
--- NOTE | 2017-01-04 07:30 | NUR ---
ASSESSMENT PER FLOW SHEET.PT WITHOUT DISTRESS.CALL LIGHT IN REACH.INSTRUCTED TO CALL FOR NEEDS.PAIN CONTROLLED WITH LICENSED AUDIOLOGIST.PT STATES NO BM,BUT HAS PASSED SOME GAS.CALL LIGHT IN REACH
[2017-01-04 08:38] VITALS: BP 156/84
--- NOTE | 2017-01-04 12:00 | NUR ---
REMAINS WITHOUT NEEDS.HAS REMAINED WITHOUT EMESIS.HAS AMBULATED IN HALLS.PAIN STILL CONTROLLED WITH SURVEILLANCE TECHNICIAN.MONITOR
[2017-01-04 12:13] VITALS: BP 155/89
--- NOTE | 2017-01-04 16:24 | NUR ---
AMBULATING IN HALLS AGAIN.REMAINS WITHOUT DISTRESS.WITHOUT SIGNS OF NAUSEA.MONITOR
--- NOTE | 2017-01-04 17:22 | NUR ---
SITTING UP AT BEDSIDE.HAS BEEN EATING DINNER AND DRINKING COFFEE.REMAINS WITHOUT NAUSEA.NO STOOLS, SMALL AMOUNTS OF GAS.CONT PLAN OF CARE
[2017-01-04 18:49] VITALS: BP 140/74
[2017-01-04 20:00] VITALS: BP 170/96
[2017-01-05] VITALS: BP 168/96
[2017-01-05 04:00] VITALS: BP 169/92
[2017-01-05 05:56] LABS: BASOPHILS 0.1 % (0-2); EOSINOPHILS 0.6 % (0-7); HEMATOCRIT 33.5 % (42.0-54.0); IMMATURE GRANULOCYTES 0.3 % (0-5); LYMPHOCYTES 14.8 % (15-50); MCH 27.6 pg (26.0-34.0); MCHC 32.8 g/dL (31.0-37.0); MCV 84.2 fL (80.0-100.0); MEAN PLATELET VOLUME 8.7 fL (7.4-10.4); MONOCYTES 12.5 % (2-11); NEUTROPHILS 71.7 % (40-80); PLATELET COUNT 322 10x3/uL (130-400); RBC 3.98 10x6/uL (4.20-6.10)
[2017-01-05 06:24] LABS: ALKALINE PHOSPHATASE 42 U/L (46-116); ALT (SGPT) 13 U/L (10-68); CALCIUM 7.9 mg/dL (8.5-10.1); CARBON DIOXIDE 24.9 mmol/L (21.0-32.0); CHLORIDE - SERUM 97 mmol/L (98-107); CREATININE - SERUM 0.4 mg/dL (0.6-1.3); GLUCOSE 77 mg/dL (74-106); PROTEIN - SERUM 5.5 g/dL (6.4-8.2); SODIUM 131 mmol/L (136-145); eGFR NON AFRICAN AMERICAN > 90 mL/min (90-120)
[2017-01-05 06:33] LABS: CALC OSMOLALITY 257 mosm/kg (275-300); POTASSIUM - SERUM 3.7 mmol/L (3.5-5.1); UREA NITROGEN 2 mg/dL (7-18)
--- NOTE | 2017-01-05 07:15 | NUR ---
AMBULATING OUT IN HALLS,WITHOUT DISTRESS.COFFEE THS AM.
--- NOTE | 2017-01-05 07:40 | NUR ---
ASSESSMENT PER FLOW SHEET.PT WITHOUT DISTRESS.REPORTS SOME GAS,BUT STILL NO STOOLS.STATES WILL EAT MORE FOR BREAKFAST THIS AM.PAIN CONTROLLED WITH GUEST SERVICE AIDE.MONITOR FOR NEEDS.
[2017-01-05 07:50] VITALS: BP 165/92
--- NOTE | 2017-01-05 10:55 | NUR ---
REMAINS WITHOUT NEEDS.DENIES NAUSE.MONITOR
--- NOTE | 2017-01-05 11:51 | NUR ---
REPORTS MEDIUM SIZED SOFT FORMED STOOL.
[2017-01-05 12:32] VITALS: BP 153/90
[2017-01-05 15:48] VITALS: BP 160/93
--- NOTE | 2017-01-05 17:19 | NUR ---
REMAINS UNCHANGED FROM INITIAL SHIFT ASSESSMENT.TOLERATING DIET WITHOUT NAUSEA/VOMITING.PASSING GAS,BUT NO RESULTS FROM MOM ORDERED.STATES PAIN AROUNG 2/10 SCALE TO ABDOMEN.NEEDS MET,CONT PLAN OF CARE
[2017-01-05 20:00] VITALS: BP 181/93
--- NOTE | 2017-01-05 20:00 | NUR ---
PATIENT RESTING IN BED AND DENIES NEEDS AT THIS TIME. BED IN LOWEST POSITION AND CALL LIGHT WITHIN REACH. ENCOURAGED THE PATIENT TO CALL IF HE HAS NEEDS.
[2017-01-06] VITALS: BP 168/99
[2017-01-06 04:00] VITALS: BP 172/88
[2017-01-06 05:28] LABS: BASOPHILS 0.1 % (0-2); EOSINOPHILS 0.6 % (0-7); HEMATOCRIT 37.2 % (42.0-54.0); HEMOGLOBIN 12.2 g/dL (13.5-17.5); IMMATURE GRANULOCYTES 0.3 % (0-5); MCH 27.7 pg (26.0-34.0); MCHC 32.8 g/dL (31.0-37.0); MCV 84.4 fL (80.0-100.0); MEAN PLATELET VOLUME 8.8 fL (7.4-10.4); MONOCYTES 12.1 % (2-11); NEUTROPHILS 74.9 % (40-80); PLATELET COUNT 332 10x3/uL (130-400); RBC 4.41 10x6/uL (4.20-6.10); WBC 7.8 10x3/uL (4.8-10.8)
[2017-01-06 05:56] LABS: ALBUMIN 2.2 g/dL (3.4-5.0); ALKALINE PHOSPHATASE 45 U/L (46-116); ALT (SGPT) 15 U/L (10-68); BILIRUBIN - TOTAL 0.68 mg/dL (0.2-1.3); CALCIUM 8.6 mg/dL (8.5-10.1); CARBON DIOXIDE 28.3 mmol/L (21.0-32.0); CHLORIDE - SERUM 96 mmol/L (98-107); GLUCOSE 82 mg/dL (74-106); POTASSIUM - SERUM 3.7 mmol/L (3.5-5.1); PROTEIN - SERUM 6.1 g/dL (6.4-8.2); SODIUM 131 mmol/L (136-145)
[2017-01-06 06:05] LABS: CALC OSMOLALITY 258 mosm/kg (275-300); CREATININE - SERUM 0.6 mg/dL (0.6-1.3); UREA NITROGEN 3 mg/dL (7-18); eGFR NON AFRICAN AMERICAN > 90 mL/min (90-120)
--- NOTE | 2017-01-06 07:08 | NUR ---
REPORT RECEIVED FROM AERONAUTICAL INSPECTOR NURSE. CALL LIGHT IN REACH.
[2017-01-06 08:33] VITALS: BP 158/90
--- NOTE | 2017-01-06 08:43 | NUR ---
ASSESSMENT COMPLETED. AM MEDS ADMINISTERED. OFFERED SCDs BUT REFUSED AT THIS TIME. EMERGENCY CONTACT INFO OBTAINED AND PLACED IN COMPUTER. REFUSES PASSWORD. CALL LIGHT IN REACH. WILL CONTINUE WITH PLAN OF CARE.
--- NOTE | 2017-01-06 10:30 | NUR ---
NO NEEDS VOICED AT THIS TIME. CALL LIGHT IN REACH.
--- NOTE | 2017-01-06 11:48 | NUR ---
AWAKE AND ALERT. ORIENTED X3. NO C/O AT THIS TIME. SKIN IS INTACT. BOWEL SOUNDS VERY HYPOACTIVE THIS AM. DENIES NEEDS. REPORTS NO BM TODAY.
[2017-01-06 12:41] VITALS: BP 149/95
--- NOTE | 2017-01-06 12:48 | NUR ---
EATING LUNCH AT THIS TIME. CALL LIGHT IN REACH.
--- NOTE | 2017-01-06 15:00 | NUR ---
DENIES NEEDS AT THIS TIME. CALL LIGHT IN REACH.
[2017-01-06 16:15] VITALS: BP 157/90
--- NOTE | 2017-01-06 17:32 | NUR ---
PROTONIX PO. IV TUBING CHANGED PER HOSPITAL POLICY.
--- NOTE | 2017-01-06 18:47 | NUR ---
NO CHANGES IN INIITAL ASSESSMENT. CALL LIGHT IN REACH. STILL REFUSES SCDs. WILL CONTINUE WITH PLAN OF CARE.
[2017-01-06 19:00] VITALS: BP 173/95
[2017-01-07] VITALS (11 sets, daily range): BP systolic 112–173; BP diastolic 73–95
--- NOTE | 2017-01-07 03:04 | NUR ---
RESTING WITH EYES CLOSED, NO DISTRESS NOTED, FALL PRECAUTIONS IN PLACE, CL IN REACH
[2017-01-07 05:09] LABS: BASOPHILS 0.1 % (0-2); EOSINOPHILS 0.7 % (0-7); HEMATOCRIT 34.5 % (42.0-54.0); HEMOGLOBIN 11.4 g/dL (13.5-17.5); IMMATURE GRANULOCYTES 0.2 % (0-5); LYMPHOCYTES 15.1 % (15-50); MCH 27.8 pg (26.0-34.0); MCV 84.1 fL (80.0-100.0); MEAN PLATELET VOLUME 8.8 fL (7.4-10.4); MONOCYTES 10.9 % (2-11); PLATELET COUNT 359 10x3/uL (130-400); RDW 14.2 % (11.5-14.5); WBC 8.1 10x3/uL (4.8-10.8)
[2017-01-07 05:30] LABS: ALKALINE PHOSPHATASE 43 U/L (46-116); BILIRUBIN - TOTAL 0.71 mg/dL (0.2-1.3); CALC OSMOLALITY 260 mosm/kg (275-300); CALCIUM 8.3 mg/dL (8.5-10.1); CARBON DIOXIDE 28.3 mmol/L (21.0-32.0); CHLORIDE - SERUM 96 mmol/L (98-107); CREATININE - SERUM 0.5 mg/dL (0.6-1.3); GLUCOSE 79 mg/dL (74-106); POTASSIUM - SERUM 3.8 mmol/L (3.5-5.1); PROTEIN - SERUM 5.5 g/dL (6.4-8.2); SODIUM 132 mmol/L (136-145); UREA NITROGEN 3 mg/dL (7-18); eGFR NON AFRICAN AMERICAN > 90 mL/min (90-120)
[2017-01-07 05:31] LABS: ALT (SGPT) 10 U/L (10-68)
--- NOTE | 2017-01-07 12:50 | NUR ---
NUTRITION MONITORING & EVAL CHART REVIEWED. PT CURRENTLY NPO FOR PROCEDURE. WILL PROVIDE DIET WHEN RESUMED, MONITOR PO INTAKE. RD FOLLOWING
--- NOTE | 2017-01-07 14:36 | NUR ---
PATIENT IS BACK FROM COLONOSCOPY. AWAKE AND ALERT. ON ROOM AIR. NO SIGNS OF DISTRESS NOTED. BED IN LOWEST POSITION, CALL LIGHT IN REACH. BED RIALS UP X'S 2.
[2017-01-08 05:04] LABS: BASOPHILS 0.1 % (0-2); EOSINOPHILS 0.6 % (0-7); HEMATOCRIT 35.5 % (42.0-54.0); HEMOGLOBIN 11.8 g/dL (13.5-17.5); IMMATURE GRANULOCYTES 0.2 % (0-5); LYMPHOCYTES 13.2 % (15-50); MCH 27.8 pg (26.0-34.0); MCHC 33.2 g/dL (31.0-37.0); MCV 83.7 fL (80.0-100.0); MEAN PLATELET VOLUME 8.7 fL (7.4-10.4); MONOCYTES 10.1 % (2-11); NEUTROPHILS 75.8 % (40-80); PLATELET COUNT 351 10x3/uL (130-400); RBC 4.24 10x6/uL (4.20-6.10); RDW 14.2 % (11.5-14.5); WBC 8.1 10x3/uL (4.8-10.8)
[2017-01-08 05:37] LABS: ALBUMIN 2.2 g/dL (3.4-5.0); ALKALINE PHOSPHATASE 44 U/L (46-116); CALCIUM 8.5 mg/dL (8.5-10.1); CARBON DIOXIDE 23.6 mmol/L (21.0-32.0); CHLORIDE - SERUM 95 mmol/L (98-107); CREATININE - SERUM 0.5 mg/dL (0.6-1.3); POTASSIUM - SERUM 3.6 mmol/L (3.5-5.1); SODIUM 132 mmol/L (136-145); UREA NITROGEN 3 mg/dL (7-18); eGFR NON AFRICAN AMERICAN > 90 mL/min (90-120)
[2017-01-08 05:51] LABS: ALT (SGPT) 13 U/L (10-68); CALC OSMOLALITY 259 mosm/kg (275-300); GLUCOSE 68 mg/dL (74-106)
--- NOTE | 2017-01-08 06:31 | NUR ---
2030) REC'D.AWAKE BUT REMAINS DROWSY BUT ALERT ORIENTED X3. WILL CONTINUE TO MONITOR FOR ANY CHGES AND FOLLOW CURRENT PLAN OF CARE
--- NOTE | 2017-01-08 07:10 | NUR ---
PATIENT RECEIVED ALERT IN LOW CURRY POSITION. RESPIRATIONS EVEN AND UNLABORED. SIDE RAILS UP X2. BED IN LOW POSITION. CALL LIGHT AND CUT OFF SAW TENDER METAL BUTTON IN REACH. DENIES NEEDS.
[2017-01-08 07:58] VITALS: BP 157/97
--- NOTE | 2017-01-08 08:12 | NUR ---
PATIENT IN LOW CURRY POSITION RESTING WITH EYES CLOSED. RESPIRATIONS EVEN AND UNLABORED. WAKES EASY. SCHEDULED MEDICATION ADMINISTERED. DENIES NEEDS. SIDE RAILS UP X2. BED IN LOW POSITION. CALL LIGHT IN REACH.
--- NOTE | 2017-01-08 12:00 | NUR ---
PATIENT ALERT IN BED WATCHING TV. NO SIGNS OF DISTRESS NOTED. DENIES NEEDS. SIDE RAILS UP X2. BED IN LOW POSITION. CALL LIGHT IN REACH.
[2017-01-08 12:06] VITALS: BP 156/93
--- NOTE | 2017-01-08 14:10 | NUR ---
PATIENT UP AMBULATING IN HALLWAY WITHOUT ASSIST. NO SIGNS OF DISTRESS NOTED.
[2017-01-08 15:36] VITALS: BP 163/95
--- NOTE | 2017-01-08 16:15 | NUR ---
ALERT IN BED WATCHING TV. NO SIGNS OF DISTRESS NOTED. DENIES NEEDS. SCHEDULED MEDICATION ADMINISTERED. SIDE RAILS UP X2. BED IN LOW POSITION. CALL LIGHT IN REACH.
--- NOTE | 2017-01-08 19:00 | NUR ---
PATIENT IN BED WATCHING TV. HOB 20 DEGREES. AAOX4. RR EVEN AND UNLABORED. 0 S/S OF DISTRESS. STATES PAIN IS A 2/10. IV TO RIGHT WRIST PATENT WITH NO REDNESS OR SWELLING. SCD'S OFF. SRX2. BED LOW. CALL LIGHT WITHIN REACH.
[2017-01-08 20:00] VITALS: BP 166/98
[2017-01-09] VITALS (15 sets, daily range): BP systolic 100–154; BP diastolic 63–93
--- NOTE | 2017-01-09 05:35 | NUR ---
PATIENT STATES THAT HE IS HAVING EXTREME CRAMPS IN HIS ABD AND THE PAIN MEDICATION IS NOT HELPING. HE IS ALSO C/O NAUSEA. GAVE ZOFRAN AND MADE PATIENT HOT PACK FOR HIS ABD.
[2017-01-09 05:39] LABS: BASOPHILS 0.1 % (0-2); EOSINOPHILS 0.7 % (0-7); HEMATOCRIT 41.7 % (42.0-54.0); HEMOGLOBIN 14.1 g/dL (13.5-17.5); IMMATURE GRANULOCYTES 0.2 % (0-5); LYMPHOCYTES 11.7 % (15-50); MCH 28.3 pg (26.0-34.0); MCHC 33.8 g/dL (31.0-37.0); MCV 83.7 fL (80.0-100.0); MEAN PLATELET VOLUME 8.9 fL (7.4-10.4); MONOCYTES 9.6 % (2-11); NEUTROPHILS 77.7 % (40-80); PLATELET COUNT 377 10x3/uL (130-400); RBC 4.98 10x6/uL (4.20-6.10); RDW 14.4 % (11.5-14.5)
[2017-01-09 05:43] LABS: WBC 12.4 10x3/uL (4.8-10.8)
[2017-01-09 06:13] LABS: ALBUMIN 2.6 g/dL (3.4-5.0); ALKALINE PHOSPHATASE 53 U/L (46-116); ALT (SGPT) 14 U/L (10-68); CALCIUM 9.5 mg/dL (8.5-10.1); CARBON DIOXIDE 19.1 mmol/L (21.0-32.0); CHLORIDE - SERUM 93 mmol/L (98-107); CREATININE - SERUM 0.6 mg/dL (0.6-1.3); GLUCOSE 88 mg/dL (74-106); POTASSIUM - SERUM 4.1 mmol/L (3.5-5.1); PROTEIN - SERUM 7.2 g/dL (6.4-8.2); SODIUM 130 mmol/L (136-145); eGFR NON AFRICAN AMERICAN > 90 mL/min (90-120)
[2017-01-09 06:19] LABS: CALC OSMOLALITY 257 mosm/kg (275-300); UREA NITROGEN 6 mg/dL (7-18)
--- NOTE | 2017-01-09 07:45 | NUR ---
PT ASSESSMENT COMPLETE AWAKE AND ALERT ORIENTED X 3 PT NPO PER ORDER FOR HALS HEMICOLECTOMY TODAY WITH DR GORMAN HAS ALREADY HAD HIBICLENSE SHOWER.
--- NOTE | 2017-01-09 09:51 | NUR ---
TO OR AT THIS TIME WITH OR TRANSPORT TEAM VIA BED PT PREOPPED PER ORDER. NO ACUTE DISTRESS NOTED VITAL SIGNS WNL.
--- NOTE | 2017-01-09 12:31 | NUR ---
TRISTA WALSH FROM [phone].
--- NOTE | 2017-01-09 13:03 | NUR ---
NUTRITION MONITORING & EVAL CHART REVIEWED. PT OOR FOR PROCEDURE. RECOMMEND STARTING NUTRITION SUPPORT IF PT UNABLE TO TOLERATE FULL LIQUID DIET. RD FOLLOWING
--- NOTE | 2017-01-09 13:24 | NUR ---
REMAINS IN SURGERY AT THIS TIME. WILL CONTINUE WITH PLAN OF CARE WHEN PT RETURNS TO ROOM [id number].
--- NOTE | 2017-01-09 15:30 | NUR ---
ADMIT TO ICU. RESP DEPRESSION ON 11L OXYMIZER. VOICES NO CO AT TIME. WAKES UP TO VERBAL COMMAND.
--- NOTE | 2017-01-09 15:36 | NUR ---
PT DID NOT WANT SISTER CALLED. ASKED NURSE TO CALL HIS FRIEND STEVE [phone]. MR REDD NOTIFIED OF PT CONDITION AND MOVE TO ICU
--- NOTE | 2017-01-09 15:49 | NUR ---
AFTER TRANSPORTING THE PATIENT TO THE FLOOR. THE PATIENT DISPLAYED A 91% O2 SAT ON OXIMIZER AT 6 LPM. O2 INCREASED TO 11 LPM TO MAINTAIN O2 SAT TO 94%. DUE TO A LOWER O2 SAT NOW READING AND HAVING TO IN CREASE IS 02 LPM BOTH PACU NURSE AND RECIVING NURSE AGREED TO NOTIFIY DR GREENWOOD. DR REYEZ NOTIFIED VIA PHONE. DR GREENWOOD ORDERED FOR THE PATIENT TO BE MOVED TO ICU. PACU NURSE STAYED WITH THE PATIENT THE LENGTH OF TIME WAITING ON AN ICU BED. PACU NURSE THEN GAVE A REPORT TO ICU AND THE PATIENT WAS MOVED TO ICU WITH ALL VITAL SIGNS CONTINUING TO BE STABLE. DR GREENWOOD WAS AT BEDSIDE ASSESING THE PATIENT UPON OUR ARRIVAL TO THE ICU.
--- NOTE | 2017-01-09 17:03 | NUR ---
SLEEPING NO DISTRESS NOTED. O2 SAT 93 PERCENT ON 11L OXYMIZER.
--- NOTE | 2017-01-09 19:00 | NUR ---
Received patient resting in bed with eyes closed, assessment completed per flowsheet. Patient AO x4, calm and cooperative. Eyes PERRLA @ 4mm with brisk response, sclera is white. NGT secured to L nare, connected to LIWS with small amount of green/yellow liquid in collection. S1/S2 noted Sinus Tach on telemetry with HR 123, rhythmic and regular. Breathing is slightly shallow on 11L oximizer with O2 sat 96%, rough crackles noted on expiration bilateral upper with diminished lower. Abdomen is round and soft, tender to palpation with bowel sounds hypoactive x4. Lap site x1 mid upper/colectomy site mid dressing CDI. VINH drain R lower compressed with bloody drainage noted, dressing CDI. Pablo secured in place with concentrated yellow urine noted in collection. Weakness noted all extremities with pneumatic tube repairer/pedal equal and bilateral. All pulses palpable with cap refill <3 sec. 20g PIV noted R hand/22g PIV noted R wrist dressing intact, patent with fluids infusing. 22g PIV noted L wrist saline locked, patent. Hydromorhpone CAREER TECHNICAL EDUCATION TEACHER in use, 0.2mg Q10 with no lockout. Patient repositioned for comfort, no further needs at this time. All VSS and will continue to monitor.
--- NOTE | 2017-01-09 21:00 | NUR ---
No visitors at this time, patient resting in bed with eyes closed. Abdominal dressing CDI, VINH drain compressed with bloody drainage noted. No further needs at this time, all VSS and will continue to monitor.
--- NOTE | 2017-01-09 22:50 | NUR ---
Reassessment completed per flowsheet, patient resting in bed with eyes closed. Patient AO x4, calm and cooperative. S1/S2 noted Sinus Tach with HR 124, rhythmic and regular. Abdomen is round and soft, tender to palpation with bowel sounds hypoactive x4. Abdominal dressing CDI, no bleeding or drainage noted. VINH drain compressed, dressing CDI with bloody drainage noted. Repositioned for comfort with no further needs at this time, all VSS and will continue to monitor.
[2017-01-10] VITALS (23 sets, daily range): BP systolic 61–132; BP diastolic 36–107
--- NOTE | 2017-01-10 03:00 | NUR ---
Reassessment completed per flowsheet, patient resting in bed with eyes closed. S1/S2 noted Sinus Tach on telemetry with HR 118, rhythmic and regular. Breathing is slightly shallow on 11L via Oximizer, O2 sat 96%. Abdomen is soft and round, tender to palpation. Midline dressing CDI, VINH drain dressing CDI with bloody drainage noted. Patient states pain 2/10 when moving, denies pain or other needs at this time. All VSS and will continue to monitor.
[2017-01-10 04:15] LABS: BASOPHILS 0.2 % (0-2); EOSINOPHILS 0.3 % (0-7); HEMATOCRIT 38.5 % (42.0-54.0); HEMOGLOBIN 12.4 g/dL (13.5-17.5); IMMATURE GRANULOCYTES 0.5 % (0-5); LYMPHOCYTES 9.8 % (15-50); MCH 27.7 pg (26.0-34.0); MCHC 32.2 g/dL (31.0-37.0); MEAN PLATELET VOLUME 9.3 fL (7.4-10.4); MONOCYTES 6.1 % (2-11); NEUTROPHILS 83.1 % (40-80); PLATELET COUNT 312 10x3/uL (130-400); RBC 4.47 10x6/uL (4.20-6.10); RDW 14.2 % (11.5-14.5)
[2017-01-10 04:16] LABS: MCV 86.1 fL (80.0-100.0)
[2017-01-10 04:31] LABS: BILIRUBIN - TOTAL 0.7 mg/dL (0.2-1.3); CALCIUM 7.5 mg/dL (8.5-10.1); CARBON DIOXIDE 17.8 mmol/L (21.0-32.0)
[2017-01-10 04:33] LABS: ALBUMIN 1.5 g/dL (3.4-5.0); ANION GAP 17.2 mmol/L (8-16); CREATININE - SERUM 1.8 mg/dL (0.6-1.3)
--- NOTE | 2017-01-10 07:00 | NUR ---
REC'D CARE OF A&O X3.
--- NOTE | 2017-01-10 07:58 | NUR ---
REQUESTED ICE CHIPS. OBLIGED.
--- NOTE | 2017-01-10 07:59 | NUR ---
ACCIDENTALLY PULLS OUT RIGHT HAND PIV. TIP INTACT. RECONNECTED NS AND INTERNATIONAL MARKETING EXECUTIVE TO RIGHT FOREARM. ALSO HAS LEFT HAND PIV.
--- NOTE | 2017-01-10 08:06 | NUR ---
TEACHING DONE ABOUT THE IMPORTANCE OF PAIN CONTROL SO HE CAN COUGH AND DEEP BREATH AND BE REPOSITIONED.
--- NOTE | 2017-01-10 09:03 | NUR ---
Nutrition follow-up: Pt s/o HALS colectomy Remains NPO at this time NGT->LIWS Will need nutrition support started if po diet unable to begin within [address] hours. RDN following.
--- NOTE | 2017-01-10 10:12 | NUR ---
DR. POWERS AT BEDSIDE. DR. GREENWOOD ALREADY HAS BEEN BY. HYPOTENSION DISCUSSED WITH BOTH PHYSCIANS. BOLUS INFUSING NOW.
--- NOTE | 2017-01-10 10:42 | NUR ---
REASSESASMENT COMPLETED PER FLOW SHEET.NO ACUTE CHANGES.
--- NOTE | 2017-01-10 13:45 | NUR ---
OOB TO CHAIR VIA PT
--- NOTE | 2017-01-10 15:00 | NUR ---
REASSESSMENT COMPLETED PER FLOW SHEET. NO ACUTE CHANGES.
--- NOTE | 2017-01-10 15:30 | NUR ---
BACK TO BED VIA PT
--- NOTE | 2017-01-10 21:15 | NUR ---
1915-RECIEVED REPORT, INITIAL ASSESSMENT COMPLETE, PLEASE SEE FLOW SHEETS FOR DETAILS. PT RESTING IN BED, NGT TO LEFT NARE TO LIS. A&O X4. INCISION X3 ON ABD, MIDLINE SMALL DRSNG CDI, MIDLINE 4X4 DRSNG CDI, RLQ VINH DRAIN DRSNG CDI -DRAINING BLOODY DRAINAGE. PPP. LUNGS DIMINISHED IN LOWER LOBES. BOWEL SOUNDS ACTIVE X4. CHAMORRO IN PLACE AND SECURED, DRAINING VIA GRAVITY. VSS ATT, BED LOW AND LOCKED CALL LIGHT IN REACH. 2100-PT RESTING, REQUESTS ICE CHIPS. USES CRECHE ATTENDANT WHEN NEEDED, SAYS IT KEEPS THE PAIN AROUND A 4/10. DENIES ANY OTHER NEEDS ATT, BED LOW AND LOCKED, CALL LIGHT IN REACH. WILL CPOC.
[2017-01-11] VITALS (24 sets, daily range): BP systolic 100–134; BP diastolic 70–86
--- NOTE | 2017-01-11 00:05 | NUR ---
2300 REASSESSMENT COMPLETE, PLEASE SEE FLOW SHEETS FOR DETAILS. DENIES PAIN/NEEDS ATT, BED LOW AND LOCKED, CALL LIGHT IN REACH. VSS, WILL CPOC.
--- NOTE | 2017-01-11 01:34 | NUR ---
0115 SLEEPING, EASILY AWAOKEN, DENIES PAIN/NEEDS ATT. VSS, BED LOW AND LOCKED, CALL LIGHT IN REACH. WILL CPOC.
--- NOTE | 2017-01-11 03:03 | NUR ---
REASSESSMENT COMPLETE, PLEASE SEE FLOW SHEETS FOR DETAILS. DENIES PAIN/NEEDS ATT. BED LOW AND LOCKED, CALL LIGHT IN REACH. VSS, WILL CPOC.
[2017-01-11 04:38] LABS: BASOPHILS 0 % (0-2); EOSINOPHILS 0.5 % (0-7); IMMATURE GRANULOCYTES 1.2 % (0-5); LYMPHOCYTES 6.6 % (15-50); MCH 27.7 pg (26.0-34.0); MCHC 33.2 g/dL (31.0-37.0); MEAN PLATELET VOLUME 9.3 fL (7.4-10.4); MONOCYTES 4.8 % (2-11); NEUTROPHILS 86.9 % (40-80); RDW 14.1 % (11.5-14.5); WBC 6.1 10x3/uL (4.8-10.8)
[2017-01-11 04:39] LABS: HEMATOCRIT 27.4 % (42.0-54.0); HEMOGLOBIN 9.1 g/dL (13.5-17.5); MCV 83.5 fL (80.0-100.0); PLATELET COUNT 171 10x3/uL (130-400); RBC 3.28 10x6/uL (4.20-6.10)
[2017-01-11 04:49] LABS: ALBUMIN 1.2 g/dL (3.4-5.0); BILIRUBIN - TOTAL 0.62 mg/dL (0.2-1.3); CALCIUM 7.8 mg/dL (8.5-10.1); CARBON DIOXIDE 19.3 mmol/L (21.0-32.0); CREATININE - SERUM 1.6 mg/dL (0.6-1.3); PROTEIN - SERUM 4.2 g/dL (6.4-8.2)
[2017-01-11 04:52] LABS: ANION GAP 13.9 mmol/L (8-16); POTASSIUM - SERUM 4.2 mmol/L (3.5-5.1)
--- NOTE | 2017-01-11 05:00 | NUR ---
PT RESTING, DENIES PAIN/NEEDS ATT. BED LOW AND LOCKED, CALL LIGHT IN REACH. VSS, WILL CPOC.
--- NOTE | 2017-01-11 07:00 | NUR ---
REC'ED REPORT FROM OUTGOING RN. PT AWAKE ALERT AND ORIENTED - PT REQUESTED ICE CHIPS - WILL CPOC
--- NOTE | 2017-01-11 08:00 | NUR ---
ASSESSMENT COMPLETE - MEDS GIVEN - PT RESTING -
--- NOTE | 2017-01-11 14:01 | NUR ---
PT SITTING UP IN CHAIR, EYES CLOSED, RESPIRATIONS REG RATE AND RHYTHM. EAISLY AWAKENED BY VERBAL STIMULI.
--- NOTE | 2017-01-11 14:45 | NUR ---
PT TRANSFERRED BACK TO BED - PT RESTING - DENIES PAIN - CPOC
--- NOTE | 2017-01-11 16:42 | NUR ---
I&O COMPLETED - PT RESTING - CPOC
--- NOTE | 2017-01-11 19:00 | NUR ---
REPORT RECIEVED, INITIAL ASSESSMENT COMPLETE, PLEASE SEE FLOW SHEETS FOR DETAILS. DENIES PAIN/NEEDS ATT. ABDOMINAL DRESSINGS CDI. RR EVEN AND UNLABORED AND DIMINISHED IN LOWER LOBES. STATES DATA PROCESSING SYSTEMS CONSULTANT IS CONTROLLING PAIN AND ONLY HAS PAIN KASSY MOVEMENT. PPP. BS HYPOACTIVE X4 QUADRANTS. MOVES SELF AROUND IN BED TO PT SATISFACTION. SCD'S ON AND SKIN CHECKED, SECURED TO MACHINE AND TURNED ON. S1S2 AUSCULTATED AND HEART RATE IN NSR. VSS ATT. BED LOW AND LOCKED, CALL LIGHT IN REACH. WILL CPOC.
--- NOTE | 2017-01-11 21:00 | NUR ---
PT SITTING UP IN BED WATCHING TELEVISION. DENIES PAIN/NEEDS ATT. VSS. BED LOW AND LOCKED, CALL LIGHT IN REACH WILL CPOC.
--- NOTE | 2017-01-11 23:00 | NUR ---
REASSESSMENT COMPLETE, PLEASE SEE FLOW SHEETS FOR DETAILS. PT DENIES PAIN/NEEDS ATT. BED LOW AND LOCKED, CALL LIGHT IN REACH. VSS, WILL CPOC.
[2017-01-12] VITALS (16 sets, daily range): BP systolic 126–174; BP diastolic 79–131
--- NOTE | 2017-01-12 01:00 | NUR ---
PT RESTING, RR EVEN AND UNLABORED. NO S&S OF ACUTE DISTRESS NOTED. VSS, BED LOW AND LOCKED, CALL LIGHT IN REACH. WILL CPOC.
--- NOTE | 2017-01-12 01:00 | NUR ---
ROUTINE CHAMORRO CARE PROVIDED ATT, BARDS WIPES USED, TOLERATED WELL.
--- NOTE | 2017-01-12 03:00 | NUR ---
REASSESSMENT COMPLETE, PLEASE SEE FLOW SHEETS FOR DETAILS. PT C/O PAIN 2/10 IN ABDOMEN THAT ACHES. ALL TUBING CHANGED AND IV FLUIDS REPLACED MINUS THE PROCALAMINE IV TUBING WHICH WAS CHANGED WHEN NEW BOTTLE WAS HUNG. DENIES ANY OTHER NEEDS ATT. VSS, WILL CPOC.
[2017-01-12 04:54] LABS: BASOPHILS 0.2 % (0-2); EOSINOPHILS 0 % (0-7); HEMOGLOBIN 8.4 g/dL (13.5-17.5); IMMATURE GRANULOCYTES 1.6 % (0-5); LYMPHOCYTES 13.1 % (15-50); MCH 27.7 pg (26.0-34.0); MCHC 33.6 g/dL (31.0-37.0); MCV 82.5 fL (80.0-100.0); MEAN PLATELET VOLUME 10.1 fL (7.4-10.4); MONOCYTES 4.2 % (2-11); NEUTROPHILS 80.9 % (40-80); PLATELET COUNT 146 10x3/uL (130-400); RBC 3.03 10x6/uL (4.20-6.10); RDW 14.5 % (11.5-14.5)
[2017-01-12 04:57] LABS: WBC 4.5 10x3/uL (4.8-10.8)
--- NOTE | 2017-01-12 05:00 | NUR ---
PT RESTING. NO S&S OF ACUTE DISTRESS NOTED. RR EVEN AND UNLABORED. VSS, BED LOW AND LOCKED, CALL LIGHT IN REACH. WILL CPOC.
[2017-01-12 05:05] LABS: ALBUMIN 1.2 g/dL (3.4-5.0); ALKALINE PHOSPHATASE 94 U/L (46-116); ALT (SGPT) 17 U/L (10-68); BILIRUBIN - TOTAL 0.47 mg/dL (0.2-1.3); CALC OSMOLALITY 271 mosm/kg (275-300); CALCIUM 8.3 mg/dL (8.5-10.1); CARBON DIOXIDE 19.5 mmol/L (21.0-32.0); CHLORIDE - SERUM 105 mmol/L (98-107); CREATININE - SERUM 0.8 mg/dL (0.6-1.3); GLUCOSE 95 mg/dL (74-106); POTASSIUM - SERUM 4.7 mmol/L (3.5-5.1); SODIUM 135 mmol/L (136-145); UREA NITROGEN 18 mg/dL (7-18); eGFR NON AFRICAN AMERICAN > 90 mL/min (90-120)
--- NOTE | 2017-01-12 19:00 | NUR ---
REPORT RECIEVED, INITIAL ASSESSMENT COMPLETE, PLEASE SEE FLOW SHEETS FOR DETAILS. C/O PAIN 3/10 IN ABDOMEN THAT ACHES, USING INFORMATION SERVICES VICE PRESIDENT PRN NEEDED. A&O X4. BS HYPOACTIVE X4, DRSESINGS IN PLACE OVER INCISIONS X2 AND VINH DRAIN IN RLQ. PPP. S1S2 AUSCULTATED AND SINUS TACH NOTED ON MONITOR. ON 2L NC, SPO2 97%. MOVES SELF IN BED AND HAS PRODUCTIVE BUT WEAK COUGH OF YELLOW TINTED SPUTUM. VSS ATT, BED LOW AND LOCKED, CALL LIGHT IN REACH, WILL CPOC.
--- NOTE | 2017-01-12 20:01 | NUR ---
SPOKE TO DR GORMAN ON PHONE DUE TO NEEDING TO RESTART ACETAMINOPHEN IV, HE SAID OK TO RESTART AND OKAY TO TRANSFER TO FLOOR PER DR GORMAN. WILL CALL AND SEE IF OK TO TRANSFER FROM PRIMARY.
--- NOTE | 2017-01-12 20:26 | NUR ---
PAGED DR GOODMAN TO JEROME TRANSFER TO FLOOR.
--- NOTE | 2017-01-12 20:29 | NUR ---
PER DR MAXINE CANO TO TRANSFER TO FLOOR WITH ALL ORDERS TO CONTINUE ORDERED.
--- NOTE | 2017-01-12 20:55 | NUR ---
PT IN BED WATCHING TV. DENIES PAIN/NEEDS ATT. INFORMED OF TRANSFER ORDERS, PT EXPRESSED HAPPINESS. VSS ATT, BED LOW AND LOCKED, CALL LIGHT IN REACH. WILL CPOC.
--- NOTE | 2017-01-12 22:15 | NUR ---
REPORT RECIEVED FROM BANDAR IN ER REGARDING TRANSFER OF DYLAN SONG FROM ICU TO ROOM 2125.
--- NOTE | 2017-01-12 22:27 | NUR ---
CALLED REPORT TO TAYLER (CANOE INSPECTOR FINAL?) AND TRANSFERED PATIENT TO NEW ROOM. LEFT IN HER CARE.
--- NOTE | 2017-01-12 22:48 | NUR ---
RECIEVED PT TO ROOM 2125 FROM ICU. PT IS ALERT/ORIENTED. NGT TO LEFT NARE, RECONNECTED TO LOW INTERMITENT SUCTION AT THIS TIME. IV PROCALAMINE AT 100ML/HR INFUSING TO LFA PIV. IV NS @ 125ML/HR INFUSING TO RFA, WELL HAS DILAUDID LIBRARY DIRECTOR AT 0.4MG/HR CONTINUOUS FOR PAIN CONTROL. ASSESSED ABDOMEN. ACTIVE BS X 4. TENDER TO PALPATION. MIDLINE INCISION WITH DRESSING C/D/I. ANOTHER SMALL DRESSING ABOVE THAT ONE AND VINH DRAIN WITH C/D/I DRESSING TO RIGHT SIDE OF ABDOMEN WITH BLOODY DRAINAGE. ORIENTED TO ROOM, USE OF CALL LIGHT FOR ASSISTANCE. SIDERAILS UP X 3. CALL LIGHT IN REACH. CPOC.
[2017-01-13 01:07] VITALS: BP 165/101
--- NOTE | 2017-01-13 04:32 | NUR ---
PT RESTING WITH NO DISTRESS. IVF INFUSING. IV PROCALAMINE INFUSING. IV VANCOMYCIN UP AND INFUSING. DILAUDID CRADLE PLACER FOR PAIN CONTROL.
[2017-01-13 05:26] VITALS: BP 166/109
[2017-01-13 07:34] LABS: BASOPHILS 0 % (0-2); EOSINOPHILS 0 % (0-7); HEMATOCRIT 26.3 % (42.0-54.0); HEMOGLOBIN 8.7 g/dL (13.5-17.5); IMMATURE GRANULOCYTES 0.7 % (0-5); LYMPHOCYTES 11.5 % (15-50); MCH 27.3 pg (26.0-34.0); MCHC 33.1 g/dL (31.0-37.0); MCV 82.4 fL (80.0-100.0); MEAN PLATELET VOLUME 10.1 fL (7.4-10.4); MONOCYTES 3.8 % (2-11); RBC 3.19 10x6/uL (4.20-6.10); RDW 14.6 % (11.5-14.5)
[2017-01-13 07:35] LABS: PLATELET COUNT 180 10x3/uL (130-400); WBC 5.7 10x3/uL (4.8-10.8)
[2017-01-13 07:59] LABS: ALKALINE PHOSPHATASE 79 U/L (46-116); ALT (SGPT) 15 U/L (10-68); CALCIUM 8.6 mg/dL (8.5-10.1); CARBON DIOXIDE 23.6 mmol/L (21.0-32.0); CHLORIDE - SERUM 102 mmol/L (98-107); CREATININE - SERUM 0.6 mg/dL (0.6-1.3); GLUCOSE 89 mg/dL (74-106); PROTEIN - SERUM 4.6 g/dL (6.4-8.2); SODIUM 133 mmol/L (136-145); eGFR NON AFRICAN AMERICAN > 90 mL/min (90-120)
[2017-01-13 08:00] VITALS: BP 171/108
[2017-01-13 08:01] LABS: CALC OSMOLALITY 263 mosm/kg (275-300); POTASSIUM - SERUM 3.2 mmol/L (3.5-5.1); UREA NITROGEN 9 mg/dL (7-18)
--- NOTE | 2017-01-13 08:46 | NUR ---
IV PATENT. NG TO LIS. IV PATENT. CALL LIGHT IN REACH. WILL CONT. PLAN OF CARE.
[2017-01-13 12:38] VITALS: BP 187/110
[2017-01-13 16:33] VITALS: BP 178/88
--- NOTE | 2017-01-13 17:53 | NUR ---
WITHOUT CHANGES OR DISTRESS NOTED AT THIS TIME. DENIES NEEDS.
--- NOTE | 2017-01-13 20:15 | NUR ---
PT RESTING IN BED. ALERT/ORIENTED. NGT TO LIS, WALL CANNISTER IS EMPTY. TURNED PT TO CONTINUOUS LOW SUCTION AND WITHIN 30 MINUTES PT HAD 200ML OF GREEN BILE IN CANNISTER. RETURNED BACK TO LIS AND WILL MONITOR. NEW PROCALAMINE AT 100ML/HR UP AND INFUSING TO RFA. IVF NS @ 125ML/HR INFUSING TO LFA. IV ABT STARTED. NEW PRESS OPERATOR CARBON BLOCKS SYRINGE OF DILAUDID REPLACED IN PRESS OPERATOR CARBON BLOCKS MACHING INFUSING AT 0.4MG/HR. CHAMORRO PATENT TO BEDSIDE DRAIN BAG. DRESSINGS TO MID ABDOMEN INCISION/ AND VINH DRAIN TO RIGHT SIDE OF ABDOMEN ALL INTACT AND VINH DRAIN COMPRESSED. PT IS NPO EXCEPT FOR ICE CHIPS. SEE COMPLETED SHIFT ASSESSMENT, CALL LIGHT IN REACH. PT RESTING IN BED. ALERT/ORIENTED. NGT TO LIS, WALL CANNISTER IS EMPTY. TURNED PT TO CONTINUOUS LOW SUCTION AND WITHIN 30 MINUTES PT HAD 200ML OF GREEN BILE IN DANIELLE PT RESTING IN BED. ALERT/ORIENTED. NGT TO LIS, WALL CANNISTER IS EMPTY. PT TO PT RESTING IN BED. ALERT/ORIENTED. NGT TO LIS, WALL CANNISTER IS EMPTY. PT TO CONTINUOUS LOW SUCTION AND WITHIN 30 MINUTES PT HAD 200ML OF GREEN BILE IN CANNISTER. RETURNED BACK TO LIS AND WILL MONITOR. NEW PROCALAMINE AT 100ML/HR UP AND INFUSING TO RFA. IVF NS @ 125ML/HR INFUSING TO LFA. IV ABT STARTED. NEW PRESS OPERATOR CARBON BLOCKS SYRINGE OF DILAUDID REPLACED IN PRESS OPERATOR CARBON BLOCKS MACHING INFUSING AT 0.4MG/HR. CHAMORRO PATENT TO BEDSIDE DRAIN BAG. DRESSINGS TO MID ABDOMEN INCISION/ AND VINH DRAIN TO RIGHT SIDE OF ABDOMEN ALL INTACT AND VINH DRAIN COMPRESSED. PT IS NPO EXCEPT FOR ICE CHIPS. SEE COMPLETED SHIFT ASSESSMENT, CALL LIGHT IN REACH.
[2017-01-13 21:30] VITALS: BP 175/102
[2017-01-14 02:21] VITALS: BP 166/78
[2017-01-14 06:34] VITALS: BP 175/104
[2017-01-14 06:58] LABS: BASOPHILS 0 % (0-2); EOSINOPHILS 0.2 % (0-7); HEMATOCRIT 26.9 % (42.0-54.0); HEMOGLOBIN 8.9 g/dL (13.5-17.5); IMMATURE GRANULOCYTES 1.4 % (0-5); LYMPHOCYTES 10.5 % (15-50); MCH 27.5 pg (26.0-34.0); MCHC 33.1 g/dL (31.0-37.0); MEAN PLATELET VOLUME 9.4 fL (7.4-10.4); MONOCYTES 7.2 % (2-11); NEUTROPHILS 80.7 % (40-80); PLATELET COUNT 171 10x3/uL (130-400); RBC 3.24 10x6/uL (4.20-6.10); RDW 14.9 % (11.5-14.5); WBC 6.6 10x3/uL (4.8-10.8)
[2017-01-14 07:13] LABS: ALBUMIN 1.1 g/dL (3.4-5.0); ALKALINE PHOSPHATASE 75 U/L (46-116); ALT (SGPT) 14 U/L (10-68); CALC OSMOLALITY 264 mosm/kg (275-300); CALCIUM 8.9 mg/dL (8.5-10.1); CARBON DIOXIDE 26.8 mmol/L (21.0-32.0); CHLORIDE - SERUM 99 mmol/L (98-107); CREATININE - SERUM 0.7 mg/dL (0.6-1.3); GLUCOSE 88 mg/dL (74-106); PROTEIN - SERUM 4.8 g/dL (6.4-8.2); SODIUM 134 mmol/L (136-145); UREA NITROGEN 7 mg/dL (7-18); eGFR NON AFRICAN AMERICAN > 90 mL/min (90-120)
[2017-01-14 08:14] VITALS: BP 182/100
--- NOTE | 2017-01-14 08:33 | NUR ---
ASSESSMENT DONE. DENIES NEEDS.
--- NOTE | 2017-01-14 09:24 | NUR ---
IV PATENT. NGT INTACT. CALL LIGHT IN REACH. WILL CONT. PLAN OF CARE.
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
--- NOTE | 2017-01-14 10:04 | PN ---
PATIENT:DYLAN SONG MEDICAL RECORD: [id number] LOCATION:[address] ADMISSION DATE: 12/31/16 PROGRESS NOTE DATE OF SERVICE: 01/01/2017 Progress Note Addendum CHIEF COMPLAINT: Better. SUBJECTIVE: He is having less nausea, less abdominal pain. His abdomen is almost nontender. The nasogastric tube is patent. Palpation aggravates. Nothing alleviates. Symptoms are improved. This is a progress note addendum. For the typed portion of the progress note, please see the chart. This would include the patient's past medical and surgical history, allergies, social history as well as current medications. REVIEW OF SYSTEMS: No chest pain or shortness of breath. Review of systems was negative other than as is described above. PHYSICAL EXAMINATION: GENERAL: He does appear acutely ill. He does not appear chronically ill. VITAL SIGNS: Reviewed. HEAD: External ears appear normal. EYES: Extraocular movements are intact. NECK: Trachea is midline. CHEST: No intercostal retractions. PULMONARY: Nonlabored, no stridor. ABDOMEN: Mildly tender in the epigastrium without guarding. No peritonitis to percussion. EXTREMITIES: No peripheral cyanosis. INTEGUMENT: No rash and no ulcerations. PSYCHIATRIC: Normal affect. NEUROLOGIC: Nonfocal. No lethargy. The patient answers questions appropriately and moves all extremities well. BACK: No thoracic kyphosis. LYMPHATIC: No lymphangitic streaking of the exposed extremities. IMPRESSION: History of abdominal abscess drained through CT-guided drainage, now with a small-bowel obstruction. We are trying to treat this nonoperatively initially. Dr. Lyons is going to be covering for me for the next couple of days as I am going to be out of town. TRANSINT:[id number] Voice Confirmation ID: [id number] DOCUMENT ID: [id number] PROGRESS NOTE [id number] DYLAN SONG ROBERT MD at 1004 CC: [id number] DICTATION DATE: 01/01/17 1042 ELECTRIC TRUCK CRANE OPERATOR: 01/01/17 1110 ADM IN [facility] [address] [place] [address]
[2017-01-14 12:00] VITALS: BP 176/101
--- NOTE | 2017-01-14 13:47 | NUR ---
Nutrition follow-up: Pt remains NPO with NGT->LIWS ProcalAmine PPN infusing @ 100 ml/hr Intralipids 20% 250 ml Q 48 hours Wt: 194# Labs reviewed ProcalAmine + lipids providin kcal 72 gm protein Recommend increasing ProcalAmine to 125 ml/hr and lipids 20% 250 ml daily to provide: 1235 kcal 90 gm protein This regimen will better meet pts estimated nutritional needs.
[2017-01-14 16:00] VITALS: BP 174/104
--- NOTE | 2017-01-14 17:52 | NUR ---
WITHOUT CHANGES OR DISTRESS NOTED AT THIS TIME. DENIES NEEDS.
[2017-01-14 20:39] VITALS: BP 179/73
--- NOTE | 2017-01-14 21:14 | NUR ---
PT RESTING IN BED. NGT TO LIS WITH GREEN DRAINAGE. PT ALSO TAKES ALOT OF ICE CHIPS. IV TO RIGHT HAND WITH NS @ KVO AND IV ABT INFUSING. IV TO LFA WITH PROCALAMINE AT 100ML/HR INFUSING. NEW BOTTLE AND TUBING UP AT THIS TIME. DILAUDID PROOFER 0.4MG CONTINUOUS INFUSING ALSO TO RIGHT HAND FOR PAIN CONTROL. ABDOMEN WITH MIDLINE INCISION AND DRESSING C/D/I. VINH DRAIN TO RIGHT SIDE OF ABDOMEN WITH DARK SCANT BLOODY DRAINAGE. CHAMORRO TO BEDSIDE DRAIN BAG. SEE COMPLETE ASSESSMENT. CPOC.
[2017-01-15 00:47] VITALS: BP 180/105
[2017-01-15 04:56] VITALS: BP 172/104
[2017-01-15 06:45] LABS: BASOPHILS 0 % (0-2); EOSINOPHILS 0.1 % (0-7); HEMATOCRIT 25.1 % (42.0-54.0); HEMOGLOBIN 8.4 g/dL (13.5-17.5); IMMATURE GRANULOCYTES 0.7 % (0-5); LYMPHOCYTES 10.1 % (15-50); MCH 27.6 pg (26.0-34.0); MCHC 33.5 g/dL (31.0-37.0); MCV 82.6 fL (80.0-100.0); MEAN PLATELET VOLUME 9.5 fL (7.4-10.4); MONOCYTES 8.3 % (2-11); NEUTROPHILS 80.8 % (40-80); PLATELET COUNT 152 10x3/uL (130-400); RBC 3.04 10x6/uL (4.20-6.10); RDW 15.1 % (11.5-14.5); WBC 7.2 10x3/uL (4.8-10.8)
[2017-01-15 07:07] LABS: ALBUMIN 1.1 g/dL (3.4-5.0); ALKALINE PHOSPHATASE 67 U/L (46-116); ALT (SGPT) 11 U/L (10-68); CALC OSMOLALITY 262 mosm/kg (275-300); CALCIUM 8.6 mg/dL (8.5-10.1); CARBON DIOXIDE 29.7 mmol/L (21.0-32.0); CHLORIDE - SERUM 96 mmol/L (98-107); CREATININE - SERUM 0.6 mg/dL (0.6-1.3); GLUCOSE 102 mg/dL (74-106); PROTEIN - SERUM 4.8 g/dL (6.4-8.2); SODIUM 132 mmol/L (136-145); UREA NITROGEN 7 mg/dL (7-18); eGFR NON AFRICAN AMERICAN > 90 mL/min (90-120)
[2017-01-15 08:00] VITALS: BP 166/99
--- NOTE | 2017-01-15 10:18 | NUR ---
UP WITH PT. AMBULATING IN HALLWAYS. NG TUBE IN PLACE. CHAMORRO DRAINING.
[2017-01-15 12:00] VITALS: BP 180/94
[2017-01-15 12:02] LABS: % SATURATION 38 % (15-55); IRON 43 ug/dl (35-150); TOTAL IRON BIND CAPACITY 113 ug/dl (260-445); UNSAT IRON BIND CAPACITY 70 ug/dl (150-375)
--- NOTE | 2017-01-15 19:27 | NUR ---
ORDER FOR VINH DC. DRESSING REMOVED AND 1 SUTURE REMOVED. VINH REMOVED WITH EASE. NO BLEEDING NOTED. REDRESSED WITH 4X4.
--- NOTE | 2017-01-15 19:30 | NUR ---
REPORT RECIEVED. ASSESSMENT DONE. PT RESTIN GIN BED WATCHING TV. DENIES ANY NEEDS.
[2017-01-15 20:04] VITALS: BP 168/96
[2017-01-15 23:53] VITALS: BP 186/98
--- NOTE | 2017-01-16 | NUR ---
PT SLEEPING IN BED WITH TV OFF. DENIES ANY NEEDS.
[2017-01-16 03:47] VITALS: BP 181/99
--- NOTE | 2017-01-16 05:00 | NUR ---
PT AWAKE RESTING IN BED.
[2017-01-16 06:48] LABS: BASOPHILS 0.1 % (0-2); EOSINOPHILS 0 % (0-7); HEMATOCRIT 23.2 % (42.0-54.0); HEMOGLOBIN 7.8 g/dL (13.5-17.5); IMMATURE GRANULOCYTES 0.5 % (0-5); LYMPHOCYTES 7.4 % (15-50); MCH 27.7 pg (26.0-34.0); MCHC 33.6 g/dL (31.0-37.0); MCV 82.3 fL (80.0-100.0); MEAN PLATELET VOLUME 9.4 fL (7.4-10.4); MONOCYTES 7.4 % (2-11); NEUTROPHILS 84.6 % (40-80); PLATELET COUNT 157 10x3/uL (130-400); RBC 2.82 10x6/uL (4.20-6.10); WBC 8.5 10x3/uL (4.8-10.8)
--- NOTE | 2017-01-16 07:00 | NUR ---
SHIFT REPORT RECEIVED. PT AWAKE, ALERT, AND ORIENTED. NG TUBE IN LEFT NARE. CHAMORRO SECURE TO LEG DRAINING FREELY. PT ON GI TECH PUMP. DENIES PAIN AT THIS TIME. PROCALAMINE INFUSING AT 100ML/HR LEFT AC. NS RUNNING AT10ML/HR ON RIGHT HAND PERIPHERAL IV. SCD'S ON BOTH LEGS. O2 AT 2L VIA NASAL CANULA. CALL LIGHT IN REACH, BED IN LOW POSITION, WHEELS LOCKED, BEDSIDE TABLE WITHIN REACH.
[2017-01-16 07:06] LABS: ALBUMIN 1.1 g/dL (3.4-5.0); ALKALINE PHOSPHATASE 55 U/L (46-116); CALCIUM 8.2 mg/dL (8.5-10.1); CARBON DIOXIDE 29.9 mmol/L (21.0-32.0); CHLORIDE - SERUM 96 mmol/L (98-107); CREATININE - SERUM 0.5 mg/dL (0.6-1.3); GLUCOSE 98 mg/dL (74-106); PROTEIN - SERUM 4.7 g/dL (6.4-8.2); SODIUM 132 mmol/L (136-145); eGFR NON AFRICAN AMERICAN > 90 mL/min (90-120)
[2017-01-16 07:16] LABS: CALC OSMOLALITY 261 mosm/kg (275-300); UREA NITROGEN 5 mg/dL (7-18)
[2017-01-16 07:19] LABS: ALT (SGPT) 7 U/L (10-68); POTASSIUM - SERUM 2.7 mmol/L (3.5-5.1)
[2017-01-16 08:04] VITALS: BP 179/99
--- NOTE | 2017-01-16 11:10 | NUR ---
AMBULATING WITH PHYSICAL THERAPY.
[2017-01-16 11:19] LABS: FOLATE (FOLIC ACID) - SERUM <2.0 ng/mL (>3.0)
[2017-01-16 11:44] VITALS: BP 150/88
--- NOTE | 2017-01-16 12:19 | NUR ---
RIGHT HAND IV INFILTRADED. DISCONTINUED LINE. NEW IV STARTED ON LEFT WRIST BY NURSE CHAPARRO. 22 GAUGE X 1 ATTEMPT. FLUSHES GOOD. PT TOLERATED WELL.
--- NOTE | 2017-01-16 12:53 | NUR ---
TRANSFERRED PT BACK TO BED. PT TOLERATED WELL. SCD'S APPLIED TO BOTH LEGS. NG SUCTION CONNECTED BACK. LIPIDS STARTED. POTASSIUM STILL RUNNING. RUNNING A LITTLE BEHIND DO TO HAVING TO START NEW IV. PT RESTING COMFORTABLY IN BED. CALL LIGHT IS IN REACH.
--- NOTE | 2017-01-16 14:19 | NUR ---
Nutrition follow-up: Spoke with Dr. Orta re: increasing PPN to 125 ml/hr to increase kcal/protien intake . He agreed. RDN will place order to increase PPN to 125 ml/hr RDN following.
--- NOTE | 2017-01-16 14:30 | NUR ---
ZOXYN INFUSING. LAST POTASSIUM INFUSING. PT AWAKE AND ALERT. NO NEEDS AT THIS TIME.
--- NOTE | 2017-01-16 14:56 | NUR ---
INCREASED PROCALAMINE TO 125ML/HR PER ORDERS. PT ASLEEP. NO OTHER NEEDS AT THIS TIME.
[2017-01-16 16:00] VITALS: BP 168/98
--- NOTE | 2017-01-16 17:25 | NUR ---
BP AT 168/98. NO MEDS GIVEN PER ORDERS. WILL CONTINUE TO MONITOR.
[2017-01-16 19:00] VITALS: BP 130/93
--- NOTE | 2017-01-16 19:20 | NUR ---
Received patient resting in bed with eyes open watching TV, assessment completed per flowsheet. Patient AO x4, calm and cooperative. Eyes PERRLA @ 4mm with brisk response, sclera is white. NGT L nare connected LIWS, green/yellow drainage noted in collection. S1/S2 noted, rhythmic and regular. Breathing is slightly shallow on 2L via NC with O2 sat 96%, Lung sounds clear bilateral upper with diminished lower. Abdomen is flat and firm, non-tender to palpation with bowel sounds hypoactive x4. Midline bandage adhered to skin, R lower dressing CDI, Lap site x1 bandage adhered. Pablo secured in place, concentrated yellow urine noted in collection. Full ROM all extremities with all pulses palpable, cap refill < 3 sec. 20g PIV noted L AC, adhered to skin with Procalamine @ 125ml/hr and NS @ 10ml/hr. API PRODUCT MANAGER in use for pain mgmt, 0.4 Q 10min, 0.4 bolus Q 3hr, 4mg lockout 4 hrs. Patient denies pain or other needs at this time, all VSS and will continue to monitor.
[2017-01-16 19:30] VITALS: BP 130/93
--- NOTE | 2017-01-16 21:00 | NUR ---
HS meds given without difficulty, patient c/o NGT "bothering him". NGT secured and connected to LIWS, green/yellow drainage noted in container. No further needs at this time, all VSS and will continue to monitor.
--- NOTE | 2017-01-16 23:00 | NUR ---
Patient resting in bed with eyes closed, denies pain or other needs at this time. All VSS and will continue to monitor.
[2017-01-17] VITALS: BP 187/107
--- NOTE | 2017-01-17 01:00 | NUR ---
NGT resecured to thomas, patient states "more comfortable". Denies pain or other needs at this time, all VSS and will continue to monitor.
--- NOTE | 2017-01-17 03:00 | NUR ---
Patient resting in bed with eyes closed, reassessment completed per flowsheet. AO x4, calm and cooperative. S1/S2 noted, rhythmic and regular. Breathing is slightly shallow on 2L via NC with O2 sat 96%. NGT L nare, secured with yellow/green drainage noted in cannister. Abdominal midline bandage adhered to skin, R lower dressing CDI, Lap site x1 bandage adhered to skin. SUPERVISOR FIBER LOCKING in use for pain control, no further needs at this time. All VSS and will continue to monitor.
[2017-01-17 04:00] VITALS: BP 187/105
--- NOTE | 2017-01-17 04:55 | NUR ---
Patient BP 187/105 per NIBP, PRN Hydralazine given per orders. Will continue to monitor.
--- NOTE | 2017-01-17 05:25 | NUR ---
BP rechecked after 30 min, current BP 151/88. Will continue to monitor.
[2017-01-17 05:52] LABS: BASOPHILS 0.1 % (0-2); EOSINOPHILS 0.1 % (0-7); HEMATOCRIT 23.7 % (42.0-54.0); IMMATURE GRANULOCYTES 0.3 % (0-5); MCH 27.6 pg (26.0-34.0); MCHC 33.8 g/dL (31.0-37.0); MCV 81.7 fL (80.0-100.0); MEAN PLATELET VOLUME 9.3 fL (7.4-10.4); MONOCYTES 6.1 % (2-11); NEUTROPHILS 87.4 % (40-80); RDW 14.9 % (11.5-14.5); WBC 11.8 10x3/uL (4.8-10.8)
[2017-01-17 05:53] LABS: PLATELET COUNT 192 10x3/uL (130-400)
[2017-01-17 06:34] LABS: ALBUMIN 1.2 g/dL (3.4-5.0); ALKALINE PHOSPHATASE 59 U/L (46-116); CALCIUM 8.5 mg/dL (8.5-10.1); CARBON DIOXIDE 30.2 mmol/L (21.0-32.0); CHLORIDE - SERUM 91 mmol/L (98-107); CREATININE - SERUM 0.6 mg/dL (0.6-1.3); GLUCOSE 108 mg/dL (74-106); MAGNESIUM - SERUM 1.6 mg/dL (1.8-2.4); PHOSPHOROUS 4.1 mg/dL (2.5-4.9); PROTEIN - SERUM 5.1 g/dL (6.4-8.2); SODIUM 130 mmol/L (136-145); VANCOMYCIN - TROUGH 20.7 ug/mL (10.0-20.0); eGFR NON AFRICAN AMERICAN > 90 mL/min (90-120)
[2017-01-17 06:41] LABS: ALT (SGPT) 10 U/L (10-68); CALC OSMOLALITY 259 mosm/kg (275-300); POTASSIUM - SERUM 2.9 mmol/L (3.5-5.1); UREA NITROGEN 7 mg/dL (7-18)
--- NOTE | 2017-01-17 07:30 | NUR ---
PT AWAKE RESPIRATORY IN ROOM NO S/S OF DISTRESS WILL CONTINUE TO MONITOR
[2017-01-17 07:56] VITALS: BP 182/94
--- NOTE | 2017-01-17 10:15 | NUR ---
CALLED TO PT ROOM BY THERAPY. PT WAS WALKING WITH THERAPY AND PIV FELL OUT. CATH TIP INTACT. CLEANED PT UP AND APPLIED PRESSURE TO SITE TO STOP BLEEDING. CALLED CHAPARRO VASCULAR NURSE TO COME SITE PT PIV
--- NOTE | 2017-01-17 10:27 | NUR ---
IV ACCESS-20 GAUGE INSERTED IN RIGHT FOREARM. CHAPARRO KLEIN RN
[2017-01-17 11:55] VITALS: BP 156/88
--- NOTE | 2017-01-17 12:27 | NUR ---
FOLVITE NOT IN PYXIS WAITING ON PHARMACY TO BRING UP.
--- NOTE | 2017-01-17 13:12 | OP ---
PATIENT NAME: DYLNA SONG MEDICAL RECORD: [id number] :58 LOCATION:D.M2 D.2126 ADMISSION DATE:12/31/16 SURGEON: LUKE GREENWOOD MD DATE OF OPERATION: 01/09/2017 PREOPERATIVE DIAGNOSES: 1. Large bowel obstruction. 2. Transverse colon mass with high-grade dysplasia. POSTOPERATIVE DIAGNOSES: 1. Large bowel obstruction. 2. Transverse colon mass with high-grade dysplasia. PROCEDURE: Hand-assisted laparoscopic extended right hemicolectomy. SURGEON: Luke Greenwood MD REPORT OF PROCEDURE: The patient's abdomen was prepped and draped in sterile fashion. A skin incision was made around the umbilicus. Electrocautery was used to dissect through the subcutaneous tissue and fascia until I was able to bluntly enter the abdominal cavity. A Gelport was inserted with a 5-mm trocar within it. We insufflated the abdomen and under direct visualization placed a 5-mm trocar in the epigastrium and another 5-mm trocar in the right subcostal region. There is a large amount of inflammatory adhesions present in the right abdomen extending down to the right pelvis and around the patient's right hepatic region. There was no sign of any active pus in any region. We took down these adhesions with either blunt dissection or electrocautery. We were eventually able to mobilize the right colon and hepatic flexure medially. In the deep pelvis, there was a dense adhesion of some small bowel to the abdominal wall. This had to be taken out using electrocautery. We then continued our dissection over the transverse colon, taking down the omentum. As we continued this dissection, I was able to encounter the mass which was causing the large bowel obstruction where we finally freed this mass up from the surrounding tissues. Once this was done, then we were able to eviscerate the right colon in this mass and the distal small bowel through the wound. Upon dissection of the hepatic flexure off of its thick lateral adhesions, there was noted to be a perforation of the colon, so there was a large spillage of feculent material. The patient also had a small perforation for what appeared to be a Meckel's diverticulum that was adherent to the pelvic side wall. The transverse colon was transected a few centimeters distal to the obstructing mass and the terminal ileum was transected proximal to the Meckel's diverticulum and perforation. The mesentery was taken down with sequential clamp and tie techniques and care was taken to oversew the large right colic and middle colic vessels. The right colon was eventually sent off for permanent specimen. We performed a [id number] anastomosis using a 60 blue load JIL stapler and closed the enterotomies with a 30 blue load TIA stapler. We then oversewed all staple lines using Lemberted 3-0 silks. The patient's bowel was then placed back into the abdominal cavity and we performed a thorough irrigation of the abdominal cavity with about 20 liters of fluid. At the conclusion of this, we had clear return of fluid and there was no sign of any further feculent material. There was no sign of any active bleeding at the conclusion of the case. We went ahead and placed a 19-[place] Jacob drain in the right pericolic gutter and extending down to the pelvis and up around the subhepatic region. The patient's liver was inspected closely. At this point, outside this inflammation, there was no sign of any masses or lesions present. The remainder of the abdominal cavity showed OPERATIVE REPORT [id number] DYLAN SONG no sign of any carcinomatosis. At this point, the ports and insufflation were then removed. The midline fascia was closed with running #1 loop PDS times 2. The wound was then irrigated out thoroughly with normal saline and the skin incisions were closed with kesha. The drain had been sutured into place with the 2-0 silk. COMPLICATIONS: None. CONDITION: Stable. ANESTHESIA: General endotracheal. BLOOD LOSS: 100 mL. TRANSINT:[id number] Voice Confirmation ID: [id number] DOCUMENT ID: [id number] LUKE GREENWOOD MD at 1312 CC: [id number] DICTATION DATE: 01/09/17 1351 CAN OPERATOR: 01/10/17 0149 ADM IN [facility] [address] [place] [address]
--- NOTE | 2017-01-17 13:12 | OP ---
PATIENT NAME: DYLAN SONG MEDICAL RECORD: [id number] :58 LOCATION:D.M2 D.2126 ADMISSION DATE:12/31/16 SURGEON: SEBASTIAN GREENWOOD MD DATE OF OPERATION: 01/07/2017 PREOPERATIVE DIAGNOSES: Large bowel obstruction. POSTOPERATIVE DIAGNOSES Large bowel obstruction. PROCEDURE: Colonoscopy with biopsy. SURGEON: Sebastian Greenwood MD REPORT OF PROCEDURE: An Olympus endoscope was advanced through the anus. We were able to pass through the patient's rectum and sigmoid colon. As we penetrated the patient's transverse colon, we approached the mass which was causing a near complete obstruction. Multiple attempts were made to pass the scope through this mass, but these were unsuccessful. There was a small amount of material that was coming through the opening. Biopsies were taken of the mass itself and care was taken to make sure there was no sign of any bleeding afterwards. At this point, the scope was pulled back and we could see the patient had a few small sigmoid diverticula. At this point, the scope was completely removed. COMPLICATIONS: None. CONDITION: Stable. ANESTHESIA: TIVA. BLOOD LOSS: Minimal. TRANSINT:[id number] Voice Confirmation ID: [id number] DOCUMENT ID: [id number] SEBASTIAN GREENWOOD MD at 1312 CC: [id number] DICTATION DATE: 01/07/17 1410 DIRECTOR INFORMATICS: 01/07/17 2341 ADM IN [facility] [address] [place] [address]
--- NOTE | 2017-01-17 14:02 | NUR ---
SPOKE TO PHARMACY ABOUT FOLIC ACID. STATED THEY WERE FINISHING MAKING IT NOW
--- NOTE | 2017-01-17 14:28 | NUR ---
STILL WAITING ON PHARM TO BRING UP FOLVITE
--- NOTE | 2017-01-17 15:58 | NUR ---
PT JENN TV. HANGING FOLIC ACID IT IS NOW UP FROM PHARMACY. NO S/S OF DISTESS DENIES ANY NEEDS. WILL CONTINUE TO MONITOR
--- NOTE | 2017-01-17 18:02 | NUR ---
PT SITTING UP IN BED WATCHING TV DENIES NEEDS
[2017-01-17 19:00] VITALS: BP 168/96
--- NOTE | 2017-01-17 19:32 | NUR ---
LEESEMARY CARMEN GROSS, PT SITTING UP IN CHAIR AT BED SIDE. A&O. RESPERATIONS EVEN ON RA. NG TUBE TO LEFT NARE AT LIS. IV TO LEFT AC WITH NS INFUSING AT 10 CC/HR, SITE CLEAN AND DRY. IV TO RIGHT WRIST WITH PROCAL INFUSING AT 125. DILAUDID PREFABRICATED HOUSES TRIMMER PUMP IN USE FOR PAIN CONTROL. CHAMORRO CATH DRAINING TO GRAVITY. DRSGS X3 TO ABD C/D/I. PT DENIES NEEDS AT THIS TIME, CL IN REACH. WILL CONT TO MONITOR.
--- NOTE | 2017-01-17 23:19 | NUR ---
1 GRAM MAG GIVEN PER ELECTROLYTE PROTOCOL FOR A MAG OF 1.6.
[2017-01-18] VITALS: BP 186/101
--- NOTE | 2017-01-18 02:07 | NUR ---
SECOND GRAM OF MAG INFUSING PER PROTOCOL. WILL CONT TO MONITOR.
[2017-01-18 04:00] VITALS: BP 181/84
--- NOTE | 2017-01-18 04:56 | NUR ---
RESTING WITH EYES CLOSED, RESPERATIONS EVEN, NO S/S DISTRESS NOTED.
[2017-01-18 06:36] LABS: BASOPHILS 0 % (0-2); EOSINOPHILS 0 % (0-7); HEMATOCRIT 23.5 % (42.0-54.0); HEMOGLOBIN 7.8 g/dL (13.5-17.5); IMMATURE GRANULOCYTES 0.3 % (0-5); LYMPHOCYTES 5.6 % (15-50); MCHC 33.2 g/dL (31.0-37.0); MCV 81.3 fL (80.0-100.0); MEAN PLATELET VOLUME 9.3 fL (7.4-10.4); MONOCYTES 4.8 % (2-11); NEUTROPHILS 89.3 % (40-80); PLATELET COUNT 227 10x3/uL (130-400); RBC 2.89 10x6/uL (4.20-6.10); RDW 14.8 % (11.5-14.5)
[2017-01-18 06:57] LABS: ALBUMIN 1.1 g/dL (3.4-5.0); ALKALINE PHOSPHATASE 65 U/L (46-116); ALT (SGPT) 9 U/L (10-68); BILIRUBIN - TOTAL 0.52 mg/dL (0.2-1.3); CALC OSMOLALITY 246 mosm/kg (275-300); CALCIUM 8.1 mg/dL (8.5-10.1); CARBON DIOXIDE 29.8 mmol/L (21.0-32.0); CHLORIDE - SERUM 87 mmol/L (98-107); CREATININE - SERUM 0.5 mg/dL (0.6-1.3); GLUCOSE 108 mg/dL (74-106); SODIUM 123 mmol/L (136-145); UREA NITROGEN 8 mg/dL (7-18); eGFR NON AFRICAN AMERICAN > 90 mL/min (90-120)
[2017-01-18 06:59] LABS: MAGNESIUM - SERUM 2.2 mg/dL (1.8-2.4); POTASSIUM - SERUM 3.8 mmol/L (3.5-5.1)
--- NOTE | 2017-01-18 07:13 | NUR ---
PT IN BED AWAKE. STABLIZED NG WITH TAPE. STUDENT IN ROOM. PT DENIES ANY NEEDS NO S/S OF DISTESS WILL CONTINUE TO MONITOR
[2017-01-18 09:12] VITALS: BP 159/88
--- NOTE | 2017-01-18 11:25 | NUR ---
PTS 11 OCLOCK MED GIVEN THROUGH NG TUBE. HAD A HARD TIME SWALLOWING YESTURDAY.
--- NOTE | 2017-01-18 11:43 | NUR ---
WILL GIVE FOLVITE WHEN PHARMACY BRINGS IT UP.PHARMACY STATED YESTURDAY IT WILL NOT BE READY UNTIL AROUND THE SAME TIME YESTURDAY APPROX 1500
[2017-01-18 12:39] VITALS: BP 141/92
--- NOTE | 2017-01-18 14:50 | NUR ---
ORDER OBTAINED TO START 2 UNITS OF PRBCS. BLOOD CONSENT IS ON CHART. PRE TRANSFUSION VITALS ARE T-98.6 P-111 RR-20 BP-182/98 HYDRALYZINE GIVEN BEFORE TRANSFUISON STARTED. FIRST UNIT OF PRBCS STARTED INFUSING TO LEFT AC IV WITH NO COMPLICATIONS. WILL CONTINUE TO CLOSELY MONITOR.
--- NOTE | 2017-01-18 15:05 | NUR ---
FIRST UNIT OF PRBCS STILL INFUSING NO PROBLEMS. VITALS ARE UNCHANGED. NO SIGNS OF REACTION. WILL CONTINUE TO MONITOR
--- NOTE | 2017-01-18 15:25 | NUR ---
STILL INFUSING FIRST UNIT OF BLOOD. NO CHANGE IN VITALS. PT DENIES ANY PAIN DENIES ANY NEEDS. WILL CONTINUE TO MONITOR
--- NOTE | 2017-01-18 15:46 | NUR ---
FIRST UNIT OF PRBCS STILL INFUSING. NO CHANGE IN VITALS. DENIES ANY PAIN OR NEEDS. WILL CONTINUE TO MONITOR
[2017-01-18 15:50] VITALS: BP 178/93
--- NOTE | 2017-01-18 16:10 | NUR ---
PT HAS MANY IV ABX AND PROCALAMINE, LIPIDS, AND CURRENTLY BLOOD. MANY MEDS OVERLAP AND WE ARE UNABLE TO GIVE EVERYTHING THROUGH [address]. [address] BUTCHER AND DR GREENWOOD ABOUT POSSIBILITY OF PLACING A CVL OR PICC LINE. DR GREENWOOD SAID WE WOULD REEVALUATE TOMORROW HE MIGHT DC NG TUBE AND DC SOME MEDICATIONS.
--- NOTE | 2017-01-18 16:57 | NUR ---
FIRST UNIT OF PRBC COMPLETE. DC BLOOD TUBING AND NS AT KVO AND DILAUDID IMAGE ARCHIVIST BACK TO LEFT AC RUNNING WITHOUT ISSUES. WILL LET PT HAVE TIME TO RECIEVE DESIRED PAIN MEDICATIONS AND THEN WILL START SECOND UNIT OF PRBC.
--- NOTE | 2017-01-18 17:35 | NUR ---
SECOND UNIT OF BLOOD STARTED NO CHANGES IN VITALS SINCE FIRST UNIT. PT DENIES ANY NEEDS DENIES ANY PAIN OR DISCOMFORT. WILL CONTINUE TO MONITOR
--- NOTE | 2017-01-18 17:47 | NUR ---
UNIT 2 OF PRBCS STILL INFUSING NO CHANGE IN VITALS. NO S/S OF DISTRESS WILL CONTINUE TO MONITOR
--- NOTE | 2017-01-18 18:23 | NUR ---
DISCHARGE INSTUCTIONS AND DISCHARGE TEACHINGS PROVIDED. PT VERBILIZED UNDERSTANDING AND DENIES ANY QUESTIONS OR CONCERNS. TELEMETRY REMOVED AND RETURNED TO CARD CUTTER HELPER. PT IN ROOM WITH AND DAUGHTER GATHERING BELONGINGS AND TRANSPORTED VIA WHEELCHAIR TO CAR OUT FRONT SCRIPT FOR PREDNISONE PROVIDED
--- NOTE | 2017-01-18 18:49 | NUR ---
PT IN BED RESTING SECOND UNIT OF PRBCS STILL INFUSING. DENIES ANY NEEDS. INFORMED OF SHIFT CHANGE. NEXT SHIFT WILL FINISH SECOND UNIT OF BLOOD. VITALS STILL HAVE NOT CHANGED
[2017-01-18 19:00] VITALS: BP 196/112
--- NOTE | 2017-01-18 20:10 | NUR ---
PRBC'S FINISHED. ADMIN APRESOLINE 10MG IV FOR ELEVATED SBP 209. LIPID'S FINISHED. FLUSHED RT WRIST IV 10ML SALINE AND RESTARTED PROCALAMINE IV AT 125ML/HR.
[2017-01-19] VITALS (8 sets, daily range): BP systolic 174–203; BP diastolic 93–114
--- NOTE | 2017-01-19 03:00 | NUR ---
REQUESTED MORE ICE CHIPS. SOME FLATULENCE NOTED.
--- NOTE | 2017-01-19 04:46 | NUR ---
REQUESTED SCD'S OFF. NO OTHER NEEDS VOICED.
[2017-01-19 05:30] LABS: BASOPHILS 0 % (0-2); EOSINOPHILS 0 % (0-7); HEMATOCRIT 28.1 % (42.0-54.0); IMMATURE GRANULOCYTES 0.4 % (0-5); LYMPHOCYTES 5.7 % (15-50); MCH 27.6 pg (26.0-34.0); MCHC 33.8 g/dL (31.0-37.0); MCV 81.7 fL (80.0-100.0); MEAN PLATELET VOLUME 9.3 fL (7.4-10.4); MONOCYTES 5.2 % (2-11); NEUTROPHILS 88.7 % (40-80); PLATELET COUNT 212 10x3/uL (130-400); RBC 3.44 10x6/uL (4.20-6.10); RDW 14.4 % (11.5-14.5); WBC 13.8 10x3/uL (4.8-10.8)
[2017-01-19 05:36] LABS: HEMOGLOBIN 9.5 g/dL (13.5-17.5)
[2017-01-19 05:53] LABS: CALC OSMOLALITY 252 mosm/kg (275-300); CALCIUM 8.3 mg/dL (8.5-10.1); CARBON DIOXIDE 31.5 mmol/L (21.0-32.0); CHLORIDE - SERUM 89 mmol/L (98-107); CREATININE - SERUM 0.6 mg/dL (0.6-1.3); GLUCOSE 103 mg/dL (74-106); MAGNESIUM - SERUM 1.7 mg/dL (1.8-2.4); PHOSPHOROUS 3.7 mg/dL (2.5-4.9); SODIUM 127 mmol/L (136-145); UREA NITROGEN 8 mg/dL (7-18); eGFR NON AFRICAN AMERICAN > 90 mL/min (90-120)
[2017-01-19 05:56] LABS: POTASSIUM - SERUM 2.4 mmol/L (3.5-5.1)
--- NOTE | 2017-01-19 06:30 | NUR ---
STARTED FIRST BAG OF SIX KCL 10 MEQ IV FOR POTASSIUM LAB VALUE 2.4.
--- NOTE | 2017-01-19 08:35 | NUR ---
ASSESSMENT DONE. DENIES NEEDS.
--- NOTE | 2017-01-19 10:47 | NUR ---
UP AMBULATING WITH PT ASSIST.
--- NOTE | 2017-01-19 12:44 | NUR ---
IV STARTED IN LEFT FOREARM X 1 ATTEMPT USING 22 GA ANGIOCATH. SITE COVERED AND SECURED
--- NOTE | 2017-01-19 17:21 | NUR ---
WITHOUT CHANGES OR DISTRESS NOTED AT THIS TIME. DENIES NEEDS.
--- NOTE | 2017-01-19 18:06 | NUR ---
IV STARTED 20 GA RIGHT FOREARM X 2 ATTEMPTS, COVERED AND SECURED
--- NOTE | 2017-01-19 23:52 | NUR ---
INITIAL ROUNDS COMPELTED AT 192 HRS. KCL 20 MEQ LIQUID IN 120CC APPLE JUICE GIVEN FOR K+ 2.7. PT TOLERATED WELL. ASSESSMENT COMPLETED AT [address] HR 101. SBP 199. LOPRESSSOR 25MG PO GIVEN WITHOUT DIFFICULTY. NGT TO L NARES CLAMPED. IV TO LFA WITH NS AT 30CC/HR AND DILAUDID BRINE MAKER 0.2MG Q 10 MINUTES WITH 4MG Q4HR LO. IV TO RFA WITH PROCALALMINE AT 125CC/HR. BOTH IV'S PATENT. LUNGS DIMINSHED IN BASES BILAT. CHAMORRO DRAING DARK URINE. RECHECKED BP AT 2130 RHS WITH RESULT 181/101. APRESOLINE 10MG SIVP GIVEN. 2ND DOSE OF KCL 20 MEQ IN 120CC OF APPLE JUICE GIVEN AT THAT TIME. AT 2300 HRS. PT INCONTINENT OF GREEN DIARRHEA. PT ASSISTED TO BR. BED LINENS CHANGED. ASSSISTED PT BACK TO BED. PT THEN STATED HE DID NOT WANT ANY MORE OF THE LIQUID POTASSIUM IT MADE HIM QUEASY. STATES WANTS REMAINDER TO BED IV. WILL CONTINUE TO MONITOR. SR UP X2, CALL LIGHT WITHIN REACH.
--- NOTE | 2017-01-20 02:11 | NUR ---
PT RESTING WTIH EYES CLOSED. RESP EVEN AND REGULAR. SR UP X2,CALL LIGHT WITHIN REACH.
[2017-01-20 04:00] VITALS: BP 189/95
--- NOTE | 2017-01-20 04:37 | NUR ---
BP 189/95. APRESOLINE 10MG SIVP GIVEN. PT DENIES ANY PAIN OR N/V. WILL CONTINUE TO MONITOR.
[2017-01-20 05:45] LABS: BASOPHILS 0.2 % (0-2); EOSINOPHILS 0 % (0-7); HEMATOCRIT 28.5 % (42.0-54.0); HEMOGLOBIN 9.6 g/dL (13.5-17.5); IMMATURE GRANULOCYTES 1.8 % (0-5); MCH 27.4 pg (26.0-34.0); MCHC 33.7 g/dL (31.0-37.0); MCV 81.2 fL (80.0-100.0); MEAN PLATELET VOLUME 9.6 fL (7.4-10.4); MONOCYTES 4.9 % (2-11); NEUTROPHILS 89.1 % (40-80); PLATELET COUNT 260 10x3/uL (130-400); RBC 3.51 10x6/uL (4.20-6.10); RDW 14.6 % (11.5-14.5); WBC 15.2 10x3/uL (4.8-10.8)
[2017-01-20 06:04] LABS: CALC OSMOLALITY 250 mosm/kg (275-300); CALCIUM 8.4 mg/dL (8.5-10.1); CARBON DIOXIDE 24.6 mmol/L (21.0-32.0); CHLORIDE - SERUM 90 mmol/L (98-107); GLUCOSE 107 mg/dL (74-106); MAGNESIUM - SERUM 1.7 mg/dL (1.8-2.4); PHOSPHOROUS 2.8 mg/dL (2.5-4.9); SODIUM 125 mmol/L (136-145); UREA NITROGEN 9 mg/dL (7-18)
[2017-01-20 06:05] LABS: CREATININE - SERUM 0.4 mg/dL (0.6-1.3); POTASSIUM - SERUM 3.7 mmol/L (3.5-5.1); eGFR NON AFRICAN AMERICAN > 90 mL/min (90-120)
[2017-01-20 08:57] VITALS: BP 188/106
--- NOTE | 2017-01-20 10:44 | NUR ---
PT UP TO BR . HAD A VERY SMALL. BM. IN FORM OF BROWN FLAKES. ASSISTED BACK TO BED. MIGUELINA WELL. WILL CONTINUE TO MONITOR.
--- NOTE | 2017-01-20 11:37 | NUR ---
ASSESSMENT COMPLETED.TELEMERTY SHOWS ST 113. IV TO LEFT FA WITH NS AT 50, DILAUDID WIRELESS RETAIL MANAGER AT 2MG Q 10MIN. PROCALMINE AT 125. FOLEYCATH PATENT TO BEDSIDE BAG. DENIES ANY NEEDS. WILL MONITOR
[2017-01-20 11:58] VITALS: BP 179/92
--- NOTE | 2017-01-20 14:23 | NUR ---
Nutrition follow-up: PPN discontinued today Diet advanced to full liquids and then to as tolerated +BM Wt: 188# RDN will order Boost with meals RDN following.
--- NOTE | 2017-01-20 14:56 | NUR ---
LYING QUIETLY. DENIES ANY NEEDS.TELEMERTY SHOWS SR. NGT OUT. WILL MONITOR
[2017-01-20 16:13] VITALS: BP 174/95
--- NOTE | 2017-01-20 19:30 | NUR ---
REPORT RECIEVED. ASSESSMENT DONE. PT IS RESTING IN BED WITH LIGHTS OFF AND TV ON. WILL CONTINUE TO MONITOR.
--- NOTE | 2017-01-20 21:00 | NUR ---
PT RESTING IN BED WITH NI VISITORS AT BED SIDE WILL CONTINUE TO MONITOR.
[2017-01-20 21:16] VITALS: BP 166/90
--- NOTE | 2017-01-20 21:30 | NUR ---
DC'D THE CHAMORRO, TELEMETRY, AND PROCALAMINE. LINENS CHANGED AND POSITIONED FOR COMFORT.
[2017-01-20 23:55] VITALS: BP 185/98
--- NOTE | 2017-01-21 01:00 | NUR ---
PT SLEEPING IN BED WITH LIGHTS AND TV OFF. WILL CONTINUE TO MONITOR.
--- NOTE | 2017-01-21 03:00 | NUR ---
PT SLEEPING IN BED WITH LIGHTS AND TV OFF. WILL CONTINUE TO MONITOR.
[2017-01-21 03:56] VITALS: BP 169/92
--- NOTE | 2017-01-21 05:12 | NUR ---
PT AWAKE AND ALERT RESTING IN HIS BED I REMOVED ALL UNUSED TUBING FROM THE PT IV DIRECT MARKETING COORDINATOR CLEANED OUT. YAP PUT BACK IN THE PYXIS.
[2017-01-21 05:57] LABS: BASOPHILS 0.1 % (0-2); EOSINOPHILS 0 % (0-7); HEMATOCRIT 27.5 % (42.0-54.0); HEMOGLOBIN 9.3 g/dL (13.5-17.5); IMMATURE GRANULOCYTES 0.2 % (0-5); LYMPHOCYTES 7.5 % (15-50); MCH 27.8 pg (26.0-34.0); MCHC 33.8 g/dL (31.0-37.0); MCV 82.1 fL (80.0-100.0); MEAN PLATELET VOLUME 9.5 fL (7.4-10.4); MONOCYTES 7.1 % (2-11); NEUTROPHILS 85.1 % (40-80); PLATELET COUNT 271 10x3/uL (130-400); RBC 3.35 10x6/uL (4.20-6.10); RDW 14.9 % (11.5-14.5)
[2017-01-21 06:39] LABS: ALBUMIN 1.3 g/dL (3.4-5.0); ALKALINE PHOSPHATASE 61 U/L (46-116); ALT (SGPT) 8 U/L (10-68); CALCIUM 8.4 mg/dL (8.5-10.1); CARBON DIOXIDE 24.9 mmol/L (21.0-32.0); CHLORIDE - SERUM 91 mmol/L (98-107); CREATININE - SERUM 0.4 mg/dL (0.6-1.3); GLUCOSE 85 mg/dL (74-106); PROTEIN - SERUM 5.3 g/dL (6.4-8.2); SODIUM 127 mmol/L (136-145); eGFR NON AFRICAN AMERICAN > 90 mL/min (90-120)
[2017-01-21 06:45] LABS: CALC OSMOLALITY 251 mosm/kg (275-300); POTASSIUM - SERUM 2.7 mmol/L (3.5-5.1); UREA NITROGEN 6 mg/dL (7-18)
[2017-01-21 06:59] LABS: WBC 10.7 10x3/uL (4.8-10.8)
--- NOTE | 2017-01-21 07:12 | NUR ---
AM ROUNDS- PT IN BED, WATCHING TV. DENIES ANY NEEDS AT THIS TIME. BEDSIDE RAILS X1, CALL LIGHT IN REACH, NAD NOTED, WILL CONTINUE TO MONTITOR.
[2017-01-21 07:54] VITALS: BP 185/89
--- NOTE | 2017-01-21 08:21 | NUR ---
ADMINISTERED AM MEDS, AND HUNG FIRST RIDER OF K FOR LOW K OF 2.7 PER EP. PT IN BED, DENIES ANY NEEDS AT THIS TIME. CALL LIGHT IN REACH, NAD NOTED, WILL CONTINUE TO MONITOR.
--- NOTE | 2017-01-21 10:04 | NUR ---
REHAB PRESCREENING Rehab referral received and chart reviewed. Mr. Griffiths's insurance provider is [employer]. [facility] rehab can not accept. Thank you for this referral! Leticia Swann, AUTO MECHANIC APPRENTICE Rehab Project Developer
--- NOTE | 2017-01-21 10:59 | NUR ---
ADMINISTERED 1MG OF DILAUDID FOR PAIN LEVEL OF 4/10. PT DENIES ANY OTHER NEEEDS AT THIS TIME. CALL LIGHT IN REACH, NAD NOTED, WILL CONTINUE TO MONITOR.
--- NOTE | 2017-01-21 11:13 | NUR ---
PT UP WALKING WITH PHYSICAL THERAPY, TWO LAPS AROUND NURSES STATION, NAD NOTED.
[2017-01-21 11:50] VITALS: BP 157/80
--- NOTE | 2017-01-21 12:44 | NUR ---
Patient Name: DYLAN SONG Encounter No: [id number] : 1960 Primary Insurance: BLUE CROSS TRUE BLUE PPO Anticipated DC Date: 01-22-2017 Planned Disposition: Home DCP follow-up note: CM RECEIVED ORDER FOR INPATIENT REHAB PRESCREENING, CM MET WITH PT IN ROOM TO DISCUSS ORDER AND DISCHARGE PLANNING / NEEDS. PT REPORTS PLAN TO RETURN HOME ALONE. CM DISCUSSED REHAB OPTIONS, INPATIENT, CORRECTION, HOME HEALTH AND OUTPATIENT. CM EXPLAINED HIS ONLY INPATIENT REHAB OPTION IN [place] WOULD BE [facility]. PT DOES NOT WANT HOME HEALTH REPORTING IT WILL DO HIM NO GOOD. PT IS NOT SURE THAT HE NEEDS INPATIENT OR CORRECTION REHAB HIS ONLY PROBLEM IS GETTING OFF THE TOILEY; PT WILL CONSIDER HIS OPTIONS AND LET CM KNOW WHEN HE DECIDES. CM ENCOURAGED PT TO MAKE HIS CHOICE SOON POSSIBLE DISCHARGE PLANNING AND SENDING REFERRALS WELL GETTING INSURANCE AUTHORIZATION TAKES TIME, SOMETIMES SEVERAL DAYS. CM ENCOURAGED PT TO PARTICIPATE WITH EVERY THERAPY SESSION AND CAUTIONED PT THAT IF HE IS REFUSING THERAPY, REHAB MAY NOT ACCEPT HIM AND INSURANCE MAY NOT APPROVE INPATIENT OR CORRECTION REHAB SERVICES. PT REPORTED UNDERSTANDING. PT WANTS TO THINK ABOUT HIS OPTIONS AND WILL LET CM KNOW WHAT HE WANTS TO DO. PT STILL PLANS TO DISCHARGE HOME ALONE AND INDEPENDENTLY. Robel Lopez, CASE MANAGEMENT
--- NOTE | 2017-01-21 14:21 | NUR ---
LT WRIST IV AND RT HAND IV INFILTRATED. STOPPED FLUIDS AND K RIDER. D.C BOTH IVS TIPS INTACT, WILL RESITE PT SOON. NAD NOTED, CALL LIGHT IN REACH, NAD NOTED, WILL CONTINUE TO MONITOR.
--- NOTE | 2017-01-21 16:01 | NUR ---
CALLED PHARMACY AND SPOKE WITH DARRON, INFORMED HER THAT I NEED, FOLIC ACID IVPB.
[2017-01-21 16:37] VITALS: BP 165/88
[2017-01-21 20:18] VITALS: BP 177/93
--- NOTE | 2017-01-21 21:39 | NUR ---
HS MEDS GIVEN WITH FRESH ICE WATER. DILAUDID GIVEN IV FOR C/O GENERALIZED PAIN.
[2017-01-22] VITALS (8 sets, daily range): BP systolic 145–180; BP diastolic 79–107
--- NOTE | 2017-01-22 02:57 | NUR ---
RESTING WITH EYES CLOSED, RESPERATIONS EVEN, NO S/S DISTRESS NOTED.
--- NOTE | 2017-01-22 07:45 | NUR ---
PT IN SEMI FOWLERS POSITION WATCHING TV. INTRODUCED SELF FOR SHIFT. RESP. EVEN AND UNLABORED. PT DENIES NEEDS AT THIS TIME.
[2017-01-22 08:27] LABS: BASOPHILS 0.1 % (0-2); EOSINOPHILS 0.1 % (0-7); HEMOGLOBIN 9.4 g/dL (13.5-17.5); IMMATURE GRANULOCYTES 0.3 % (0-5); LYMPHOCYTES 6.8 % (15-50); MCH 27.6 pg (26.0-34.0); MCHC 33.6 g/dL (31.0-37.0); MCV 82.4 fL (80.0-100.0); MEAN PLATELET VOLUME 9.6 fL (7.4-10.4); MONOCYTES 7.4 % (2-11); NEUTROPHILS 85.3 % (40-80); RDW 15.2 % (11.5-14.5); WBC 11.6 10x3/uL (4.8-10.8)
[2017-01-22 08:28] LABS: PLATELET COUNT 326 10x3/uL (130-400)
[2017-01-22 08:31] LABS: CALC OSMOLALITY 258 mosm/kg (275-300); CARBON DIOXIDE 29.4 mmol/L (21.0-32.0); CHLORIDE - SERUM 90 mmol/L (98-107); CREATININE - SERUM 0.4 mg/dL (0.6-1.3); GLUCOSE 95 mg/dL (74-106); SODIUM 130 mmol/L (136-145); UREA NITROGEN 7 mg/dL (7-18); eGFR NON AFRICAN AMERICAN > 90 mL/min (90-120)
[2017-01-22 08:33] LABS: CALCIUM 8.6 mg/dL (8.5-10.1)
[2017-01-22 08:35] LABS: POTASSIUM - SERUM 2.2 mmol/L (3.5-5.1)
--- NOTE | 2017-01-22 08:35 | NUR ---
CRITICAL POTASSIUM OF 2.2 CALLED FROM [facility] IN LAB. WILL FOLLOW PROTOCOL FOR ELECTROLYTE REPLACEMENT.
--- NOTE | 2017-01-22 09:00 | NUR ---
PHYSICAL ASSESSMENT DONE, SEE SHIFT ASSESSMENT. CRACKLES NOTED TO CLEAR WITH COUGH IN UPPER LOBES BILATERALLY. PT REPORTS CLEAR PRODUCTIVE SPUTUM. S1, S2 AUDIBLE; REGULAR RATE AND RHYTHM NOTED. BOWEL SOUNDS HYPOACTIVE IN RUQ,RLQ,LUQ, BUT ACTIVE IN LLQ. VERTICLE 2 IN INCISION NOTED AT UMBILICUS WITH MADIHA. EDGES APPROXIMATED, ERRYTHEMA NOTED AT STAPLE INSERTION SITES. LAP INCISIONS X 2 NOTED IN UPPER ABDOMEN. 2 MADIHA IN LAP INCISION ON LEFT. SITE C/D/I. PT REPORTS HAVING LIQUID BM LAST PM AND REPORTS PASSING GAS. REDDENED AREA NOTED TO COCCYX. CALMOSEPTINE OINTMENT APPLIED PER [facility] HEATING AND COOLING TECHNICIAN STUDENT. 2+ PITTING EDEMA NOTED IN LOWER EXTREMETIES BILATERALLY. PULSES PALPABLE AND EQUAL +2 IN ALL FOUR EXTREMETIES. SCDS NOT IN PLACE BUT PUT BACK ON AND CONNECTED TO PUMP. PT RATES PAIN 4/10 AND REQUESTS "SOMETHING HEALTHCARE ECONOMICS CONSULTANT THAN DILAUDID".
--- NOTE | 2017-01-22 09:31 | NUR ---
NORCO 10/325MG GIVEN PO FOR PT REPORT OF PAIN IN ABDOMEN AND COCCYX.
--- NOTE | 2017-01-22 09:34 | NUR ---
APRESOLINE 20MG GIVEN SIVP ORDERED PRN.
--- NOTE | 2017-01-22 11:15 | NUR ---
PT IN HIGH FOWLERS POSITION. MEDS GIVEN. PT DENIES FURTHER NEEDS AT THIS TIME.
--- NOTE | 2017-01-22 12:27 | NUR ---
BOONE VILLAREAL, SEE EMAR. PT IN HIGH FOWLERS POSITION EATING REGULAR DIET TRAY. PT DENIES NEEDS AT THIS TIME.
[2017-01-22 13:18] LABS: CALC OSMOLALITY 252 mosm/kg (275-300); CALCIUM 8.3 mg/dL (8.5-10.1); CARBON DIOXIDE 28.6 mmol/L (21.0-32.0); CHLORIDE - SERUM 90 mmol/L (98-107); CREATININE - SERUM 0.4 mg/dL (0.6-1.3); GLUCOSE 107 mg/dL (74-106); SODIUM 127 mmol/L (136-145); UREA NITROGEN 7 mg/dL (7-18); eGFR NON AFRICAN AMERICAN > 90 mL/min (90-120)
--- NOTE | 2017-01-22 13:21 | NUR ---
Nutrition follow-up: Diet now advanced to regular as tolerated PO intake ~75% of some meals labs reviewed +BM loose Wt: 184# RDN following.
[2017-01-22 13:29] LABS: POTASSIUM - SERUM 2.8 mmol/L (3.5-5.1)
--- NOTE | 2017-01-22 13:45 | NUR ---
PT STATES, " THAT NORCO JUST ISN'T CUTTING IT. I NEED THE DILAUDID AGAIN." ICE WATER, 5TH KCL RIDER, AND DILAUDID 1MG GIVEN. PT RATING PAIN 4/10 IN HIS ABDOMEN AND COCCYX. PT DENIES FURTHER NEEDS AT THIS TIME.
--- NOTE | 2017-01-22 14:50 | NUR ---
MADIHA REMOVED PER ORDER BY LAZARO OT MEDICAL BILLING AND CODING SPECIALIST STUDENT. PT TOLERATED WELL. STERI STRIPS APPLIED PER H.BABAR ALBERT FOR REINFORCEMENT. PT RATES PAIN 1/10 AND DENIES FURTHER NEEDS.
--- NOTE | 2017-01-22 15:05 | NUR ---
LAST KCL RIDER HUNG. PT DENIES PAIN OR NEEDS.
--- NOTE | 2017-01-22 16:15 | NUR ---
IV SALINE LOCKED AT THIS TIME. PT IN HIGH FOWLERS POSITION. PT DENIES PAIN OR NEEDS AT THIS TIME.
--- NOTE | 2017-01-22 18:00 | NUR ---
PT IN SEMI FOWLERS POSITION RESTING WITH EYES CLOSED. RESP. EVEN AND UNLABORED. NO DISTRESS NOTED.
--- NOTE | 2017-01-22 19:50 | NUR ---
BAG 1 OF k+ INFUSING TO RFA, WILL MONITOR
--- NOTE | 2017-01-22 20:01 | NUR ---
RECEIVED REPORT, EXPLAINED K+ IS STILL 2.8, PT WANTS IV K+, WILL START 1 BAG OF 6, PT DENIES ANY NEEDS, BED IS LOW, SRX2, CALL LIGHT IN REACH, WILL CONNTINUE PLAN OF CARE
--- NOTE | 2017-01-22 20:27 | NUR ---
ROLL FORGER AT BEDSIDE TO OBTAIN VITALS, CALL LIGHT IN REACH. WILL CONTINUE WITH PLAN OF CARE.
--- NOTE | 2017-01-22 21:17 | NUR ---
2ND BAG OF K+ INFUSING, WILL MONITOR
--- NOTE | 2017-01-22 22:30 | NUR ---
BAG 3 OF K+ INFUSING, WILL MONITOR
--- NOTE | 2017-01-22 23:30 | NUR ---
BAG 4 OF K+ INFUSING WILL MONITOR
[2017-01-23 00:24] VITALS: BP 172/93
--- NOTE | 2017-01-23 01:40 | NUR ---
BAG 6 OF 6 K+ INFUSING, WILL MONITOR
[2017-01-23 04:32] VITALS: BP 171/95
[2017-01-23 05:51] LABS: BASOPHILS 0.2 % (0-2); EOSINOPHILS 0.1 % (0-7); HEMATOCRIT 26.5 % (42.0-54.0); HEMOGLOBIN 8.9 g/dL (13.5-17.5); IMMATURE GRANULOCYTES 0.6 % (0-5); LYMPHOCYTES 8.7 % (15-50); MCH 27.7 pg (26.0-34.0); MCHC 33.6 g/dL (31.0-37.0); MCV 82.6 fL (80.0-100.0); MEAN PLATELET VOLUME 9.7 fL (7.4-10.4); MONOCYTES 9.6 % (2-11); NEUTROPHILS 80.8 % (40-80); PLATELET COUNT 358 10x3/uL (130-400); RBC 3.21 10x6/uL (4.20-6.10); RDW 15.1 % (11.5-14.5); WBC 12.5 10x3/uL (4.8-10.8)
[2017-01-23 06:17] LABS: CALC OSMOLALITY 255 mosm/kg (275-300); CALCIUM 8.2 mg/dL (8.5-10.1); CARBON DIOXIDE 28.1 mmol/L (21.0-32.0); CHLORIDE - SERUM 92 mmol/L (98-107); CREATININE - SERUM 0.3 mg/dL (0.6-1.3); GLUCOSE 88 mg/dL (74-106); MAGNESIUM - SERUM 1.5 mg/dL (1.8-2.4); PHOSPHOROUS 3.6 mg/dL (2.5-4.9); POTASSIUM - SERUM 3.2 mmol/L (3.5-5.1); SODIUM 129 mmol/L (136-145); UREA NITROGEN 6 mg/dL (7-18); eGFR NON AFRICAN AMERICAN > 90 mL/min (90-120)
--- NOTE | 2017-01-23 07:30 | NUR ---
PT RESTING QUIETLY, EXPRESSES CONCERN OVER SEROUS FLUID DRAINING FROM ABD WOUND. EXPLAINED TO PT THAT THIS IS A NORMAL SYMPTOM AFTER MADIHA ARE REMOVED. PT VERBALIZED UNDERSTANDING. NAME PLACED ON WHITE BOARD AND INTRODUCED SELF PRIMARY PHYSICAL THERAPY ASSISTANT INSTRUCTOR FOR THE DAY. BREATHING UNLABORED AND EQUAL, WILL CTM.
[2017-01-23 07:59] VITALS: BP 182/106
[2017-01-23 12:02] VITALS: BP 149/87
[2017-01-23 15:52] VITALS: BP 173/89
--- NOTE | 2017-01-23 18:41 | NUR ---
PAIN MEDS GIVEN, PT DENIES OTHER COMPLAINT. RR EVEN AND UNLABORED. WILL GIVE REPORT ON PT CONDITION FOR THE DAY.
[2017-01-23 19:00] VITALS: BP 158/89
[2017-01-24] VITALS: BP 178/101
[2017-01-24 04:00] VITALS: BP 195/113
[2017-01-24 06:26] LABS: BASOPHILS 0.1 % (0-2); EOSINOPHILS 0 % (0-7); IMMATURE GRANULOCYTES 0.5 % (0-5); LYMPHOCYTES 7.7 % (15-50); MCH 27.5 pg (26.0-34.0); MCHC 33.3 g/dL (31.0-37.0); MCV 82.6 fL (80.0-100.0); MEAN PLATELET VOLUME 9.8 fL (7.4-10.4); MONOCYTES 9.3 % (2-11); NEUTROPHILS 82.4 % (40-80); RBC 3.27 10x6/uL (4.20-6.10); RDW 15.3 % (11.5-14.5); WBC 13.3 10x3/uL (4.8-10.8)
[2017-01-24 06:30] LABS: PLATELET COUNT 436 10x3/uL (130-400)
[2017-01-24 06:45] LABS: CALC OSMOLALITY 254 mosm/kg (275-300); CALCIUM 8.4 mg/dL (8.5-10.1); CARBON DIOXIDE 27.6 mmol/L (21.0-32.0); CHLORIDE - SERUM 93 mmol/L (98-107); GLUCOSE 87 mg/dL (74-106); MAGNESIUM - SERUM 1.5 mg/dL (1.8-2.4); SODIUM 129 mmol/L (136-145); UREA NITROGEN 5 mg/dL (7-18)
[2017-01-24 06:57] LABS: CREATININE - SERUM 0.5 mg/dL (0.6-1.3); eGFR NON AFRICAN AMERICAN > 90 mL/min (90-120)
--- NOTE | 2017-01-24 07:41 | NUR ---
PT RESTING QUIETLY, DENIES PAIN. RR EVEN AND UNLABORED. BED IN LOWEST POSTION, CALL NEFF IN REACH, FALL SOCKS OFFERED. INTRODUCED SELF RN FOR THE DAY. WILL CTM.
[2017-01-24 08:44] VITALS: BP 160/91
[2017-01-24] MEDS ORDERED: HYDROCODONE-APA1 TAB PO (09:45)
[2017-01-24] MEDS ORDERED: METOPROLOL TART50 MG PO (09:46)
[2017-01-24] MEDS ORDERED: K-DUR20 MEQ PO (09:48)
[2017-01-24 12:00] VITALS: BP 149/90
[2017-01-24 18:24] VITALS: BP 151/87
[2017-01-24 19:00] VITALS: BP 160/86
--- NOTE | 2017-01-24 22:14 | NUR ---
HS MEDS GIVEN WITH FRESH ICE WATER, DILAUDID 1 MG GIVEN FOR C/O PAIN TO ABD. RATES PAIN AT A 4 ON PAIN SCALE.
--- NOTE | 2017-01-25 02:40 | NUR ---
DILAUDID 1 MG GIVEN IV FOR C/O PAIN TO ABD, RATES PAIN AT A 4 ON PAIN SCALE.
[2017-01-25 04:00] VITALS: BP 169/96
[2017-01-25 08:00] VITALS: BP 191/105
--- NOTE | 2017-01-25 08:15 | NUR ---
ASSESSMENT COMPLETED. NO TELEMERTY OR O2. DRSG TO MID ABD WITH DRS DRY AND INTACT. ALERT AND ORIENTED.DENIES ANY NEEDS. UP AB JUAN MANUEL. DENIES ANY NEEDS. CALL LIGHT IN REACH WITH SR UP. WILL MONITOR
[2017-01-25 10:40] LABS: BASOPHILS 0.1 % (0-2); EOSINOPHILS 0 % (0-7); HEMOGLOBIN 9.5 g/dL (13.5-17.5); IMMATURE GRANULOCYTES 0.7 % (0-5); MCH 27.5 pg (26.0-34.0); MCHC 32.8 g/dL (31.0-37.0); MCV 83.8 fL (80.0-100.0); MEAN PLATELET VOLUME 9.6 fL (7.4-10.4); MONOCYTES 9.1 % (2-11); NEUTROPHILS 83.1 % (40-80); PLATELET COUNT 514 10x3/uL (130-400); RBC 3.46 10x6/uL (4.20-6.10); RDW 15.5 % (11.5-14.5)
[2017-01-25 10:49] LABS: CALC OSMOLALITY 256 mosm/kg (275-300); CALCIUM 8.2 mg/dL (8.5-10.1); CARBON DIOXIDE 29.5 mmol/L (21.0-32.0); CHLORIDE - SERUM 93 mmol/L (98-107); CREATININE - SERUM 0.7 mg/dL (0.6-1.3); GLUCOSE 141 mg/dL (74-106); SODIUM 128 mmol/L (136-145); UREA NITROGEN 6 mg/dL (7-18); eGFR NON AFRICAN AMERICAN > 90 mL/min (90-120)
[2017-01-25 10:51] LABS: POTASSIUM - SERUM 2.9 mmol/L (3.5-5.1)
--- NOTE | 2017-01-25 11:30 | NUR ---
LYING QUIETLY, DENIES ANY NEEDS. SR UP WITH CALL LIGHT IN REACH
[2017-01-25 12:00] VITALS: BP 149/91
--- NOTE | 2017-01-25 15:15 | NUR ---
RESTING QUIETLY RESP UNLABORED DENIES ANY NEEDS NAD NOTED
[2017-01-25 16:00] VITALS: BP 155/89
--- NOTE | 2017-01-25 16:55 | NUR ---
UP FOR DIET. DENIES ANY FUTHER PAIN. SR UP WITH CALL LIGHT IN REACH
[2017-01-25 20:00] VITALS: BP 165/87
--- NOTE | 2017-01-25 20:00 | NUR ---
PT RESTING IN BED. BRIGHT AFFECT. WATCHING TV. NONLABORED RESPIRATONS ON ROOM AIR. SALINE LOCK TO RFA. MIDLINE ABDOMINAL INCISION WITH DRESSING C/D/I. STATES NO BM SINCE 2 DAYS AGO AND IS WANTING MOM. WILL SEE WHAT CAN BE ORDERED. SEE ASSESSMENT. CPOC.
--- NOTE | 2017-01-25 21:47 | NUR ---
PT RESTING WITH NO DISTRESS. REQUESTED AND WAS GIVEN DILAUDID 1MG SIVP + HS MEDS. WILL MONITOR.
[2017-01-26 04:00] VITALS: BP 182/100
[2017-01-26 05:53] LABS: BASOPHILS 0.1 % (0-2); EOSINOPHILS 0 % (0-7); HEMATOCRIT 27.3 % (42.0-54.0); IMMATURE GRANULOCYTES 0.6 % (0-5); LYMPHOCYTES 9.3 % (15-50); MCH 27.6 pg (26.0-34.0); MCV 83.7 fL (80.0-100.0); MEAN PLATELET VOLUME 9.6 fL (7.4-10.4); MONOCYTES 10.9 % (2-11); NEUTROPHILS 79.1 % (40-80); PLATELET COUNT 570 10x3/uL (130-400); RBC 3.26 10x6/uL (4.20-6.10); RDW 15.7 % (11.5-14.5); WBC 12.4 10x3/uL (4.8-10.8)
[2017-01-26 06:09] LABS: CALC OSMOLALITY 258 mosm/kg (275-300); CALCIUM 8.2 mg/dL (8.5-10.1); CARBON DIOXIDE 27.4 mmol/L (21.0-32.0); CHLORIDE - SERUM 95 mmol/L (98-107); CREATININE - SERUM 0.5 mg/dL (0.6-1.3); GLUCOSE 86 mg/dL (74-106); POTASSIUM - SERUM 4.1 mmol/L (3.5-5.1); SODIUM 131 mmol/L (136-145); UREA NITROGEN 5 mg/dL (7-18); eGFR NON AFRICAN AMERICAN > 90 mL/min (90-120)
--- NOTE | 2017-01-26 07:56 | NUR ---
ASSESSMENT COMPLETED. UP ON SIDE OF BED. RIGHT ARM SL. DENIES ANY PAIN OR OTHER NEEDS. DRSG TO MID ABD. WITH STERI STRIPS. SR UP WITH CALL LIGHT IN REACH. WILL MONITOR
[2017-01-26 08:00] VITALS: BP 175/95
[2017-01-26] MEDS ORDERED: LEVAQUIN500 MG PO (10:13)
--- NOTE | 2017-01-26 10:35 | NUR ---
WRITTEN SCRIPT FOR NORCO 10-325 MG #30 WITH NO REFILLS GIVEN TO PATIENT. COPY TO CHART.
--- NOTE | 2017-01-26 11:03 | NUR ---
PT DC D. IV DC D WITH TIP INTACK. DISCHARGE INSTRUCTIONS GIVEN TO PT. TO PRIVATE CAR PER WHEELCHAIR.
== END 2017-01-26 11:06 | disposition home or self-care (01) | DRG 330 ==
LOC: D.ER 10:17 → D.M2 15:16 → D.MS 15:16 → D.ICU 15:16 → D.M2 01-12 22:29
PROVIDERS: Emergency Medicine; Family Medicine; Family Medicine Adult Medicine; Surgery; ADMIT Surgery
PROC: 0DBL8ZX Excision of Transverse Colon, Via Natural or Artificial Opening Endoscopic, Diagnostic (ICD-10-PCS; principal; 2017-01-07 10:30)
PROC: 0DTF0ZZ Resection of Right Large Intestine, Open Approach (ICD-10-PCS; 2017-01-09)
DX: C18.4 Malignant neoplasm of transverse colon (principal); K56.69 Other intestinal obstruction; E87.1 Hypo-osmolality and hyponatremia; F17.203 Nicotine dependence unspecified, with withdrawal; C77.2 Secondary and unspecified malignant neoplasm of intra-abdominal lymph nodes; K56.7 Ileus, unspecified; E86.0 Dehydration; F10.20 Alcohol dependence, uncomplicated; I10 Essential (primary) hypertension; E87.6 Hypokalemia; D63.8 Anemia in other chronic diseases classified elsewhere; F32.9 Major depressive disorder, single episode, unspecified

== ENCOUNTER 2017-04-17 08:29 | Day surgery (SDC) | payer BC ==
[~2017-04-17] VITALS: Ht 175.3 cm; Wt 77.1 kg
[~2017-04-17 08:29] MED LIST changes: +HYDROCODONE-APA1 TAB PO; +K-DUR20 MEQ PO; +LEVAQUIN500 MG PO; +METOPROLOL TART50 MG PO; +POTASSIUM CHLO10 ME1 PO
[2017-04-17] MEDS ORDERED: MULTIPLE VITAMI1 TA1 PO (09:35)
[2017-04-17 09:36] VITALS: BP 170/90; Ht 175.3 cm; Wt 77.1 kg
== END 2017-04-17 13:40 | disposition home or self-care (01) ==
LOC: D.OPS 08:29 → D.PAN 11:30 → D.OPS 13:40
DX: C18.4 Malignant neoplasm of transverse colon (principal); I10 Essential (primary) hypertension; Z01.812 Encounter for preprocedural laboratory examination

== ENCOUNTER 2017-04-25 06:48 | Inpatient (IN) | payer BC ==
[~2017-04-25 06:48] MED LIST changes: +MULTIPLE VITAMI1 TA1 PO
[2017-04-25 07:26] LABS: BASOPHILS 0.2 % (0-2); EOSINOPHILS 1.3 % (0-7); HEMATOCRIT 41.7 % (42.0-54.0); HEMOGLOBIN 13.1 g/dL (13.5-17.5); IMMATURE GRANULOCYTES 0.3 % (0-5); LYMPHOCYTES 9.1 % (15-50); MCH 28.1 pg (26.0-34.0); MCHC 31.4 g/dL (31.0-37.0); MCV 89.3 fL (80.0-100.0); MEAN PLATELET VOLUME 8.7 fL (7.4-10.4); MONOCYTES 10.5 % (2-11); NEUTROPHILS 78.6 % (40-80); PLATELET COUNT 279 10x3/uL (130-400); RBC 4.67 10x6/uL (4.20-6.10); RDW 14.7 % (11.5-14.5); WBC 11.2 10x3/uL (4.8-10.8)
[2017-04-25 07:37] LABS: INR 0.93 (0.85-1.17); PROTIME 12.3 SECONDS (11.6-15.0)
[2017-04-25 07:39] LABS: CALC OSMOLALITY 267 mosm/kg (275-300); CALCIUM 8.8 mg/dL (8.5-10.1); CARBON DIOXIDE 26.9 mmol/L (21.0-32.0); CHLORIDE - SERUM 98 mmol/L (98-107); CREATININE - SERUM 0.7 mg/dL (0.6-1.3); GLUCOSE 122 mg/dL (74-106); POTASSIUM - SERUM 4.3 mmol/L (3.5-5.1); SODIUM 133 mmol/L (136-145); UREA NITROGEN 16 mg/dL (7-18); eGFR NON AFRICAN AMERICAN > 90 mL/min (90-120)
[2017-04-25 08:35] VITALS: BMI 25.1
--- NOTE | 2017-04-25 12:00 | NUR ---
PT IN ROOM WITHOUT DISTRESS.ORIENTATION TO ROOM.CALL LIGHT IN REACH.
[2017-04-25 12:40] VITALS: BP 162/93
[2017-04-25 14:19] LABS: MESOTHELIALS BF 2 %; NEUT - BF 94 %
--- NOTE | 2017-04-25 15:30 | NUR ---
ASSESSMENT PER FLOW SHEET.PT REMAINS WITHOUT DISTRESS.CALL LIGHT IN REACH
--- NOTE | 2017-04-25 15:30 | NUR ---
CHEST TUBE OPENED ORDERED SO FLOW COULD RESUME
[2017-04-25 16:07] VITALS: BP 165/95
[2017-04-25 16:43] VITALS: BMI 25.1
--- NOTE | 2017-04-25 19:38 | NUR ---
REMAINS WITHOUT NEEDS.WITHOUT CHANGE.CONT PLAN OF CARE
[2017-04-25 20:00] VITALS: BP 182/98
[2017-04-26 04:00] VITALS: BP 167/90
[2017-04-26 04:39] LABS: BASOPHILS 0.2 % (0-2); EOSINOPHILS 1.6 % (0-7); HEMATOCRIT 38.7 % (42.0-54.0); HEMOGLOBIN 12.2 g/dL (13.5-17.5); IMMATURE GRANULOCYTES 0.3 % (0-5); LYMPHOCYTES 7.1 % (15-50); MCH 27.8 pg (26.0-34.0); MCHC 31.5 g/dL (31.0-37.0); MCV 88.2 fL (80.0-100.0); MEAN PLATELET VOLUME 8.8 fL (7.4-10.4); MONOCYTES 10.2 % (2-11); NEUTROPHILS 80.6 % (40-80); PLATELET COUNT 234 10x3/uL (130-400); RBC 4.39 10x6/uL (4.20-6.10); RDW 14.5 % (11.5-14.5); WBC 10.6 10x3/uL (4.8-10.8)
[2017-04-26 05:12] LABS: ALBUMIN 2.6 g/dL (3.4-5.0); ALKALINE PHOSPHATASE 47 U/L (46-116); ALT (SGPT) 12 U/L (10-68); BILIRUBIN - TOTAL 0.79 mg/dL (0.2-1.3); CALC OSMOLALITY 259 mosm/kg (275-300); CALCIUM 8.5 mg/dL (8.5-10.1); CARBON DIOXIDE 25.8 mmol/L (21.0-32.0); CHLORIDE - SERUM 96 mmol/L (98-107); CREATININE - SERUM 0.6 mg/dL (0.6-1.3); GLUCOSE 109 mg/dL (74-106); MAGNESIUM - SERUM 1.7 mg/dL (1.8-2.4); PHOSPHOROUS 4.5 mg/dL (2.5-4.9); PROTEIN - SERUM 6.9 g/dL (6.4-8.2); SODIUM 129 mmol/L (136-145); UREA NITROGEN 12 mg/dL (7-18); eGFR NON AFRICAN AMERICAN > 90 mL/min (90-120)
[2017-04-26 11:13] VITALS: BP 143/85
[2017-04-26 12:55] VITALS: BMI 25.1
--- NOTE | 2017-04-26 17:04 | NUR ---
IV RIGHT FOREARM TENDER.PORT ACCESSED USING HEALTH CARE TECHNICIAN 20G NEEDLE. IV RIGHT FOREARM DCD WITH CATH INTACT
[2017-04-26 18:56] VITALS: BP 171/91
[2017-04-26 20:00] VITALS: BP 136/77
--- NOTE | 2017-04-26 20:10 | NUR ---
PATIENT RESTING IN BED AND REQUESTED PAIN MEDS. PATIENT DENIES OTHER NEEDS AT THIS TIME BED IN LOWEST POSITION AND CALL LIGHT WITHIN REACH. ENCOURAGED THE PATIENT TO CALL IF HE HAS OTHER NEEDS
[2017-04-27 00:04] VITALS: BP 139/74
[2017-04-27 06:05] LABS: BASOPHILS 0.1 % (0-2); EOSINOPHILS 3.6 % (0-7); HEMATOCRIT 37.6 % (42.0-54.0); HEMOGLOBIN 11.8 g/dL (13.5-17.5); IMMATURE GRANULOCYTES 0.1 % (0-5); LYMPHOCYTES 12.8 % (15-50); MCH 27.6 pg (26.0-34.0); MCHC 31.4 g/dL (31.0-37.0); MCV 88.1 fL (80.0-100.0); MEAN PLATELET VOLUME 8.6 fL (7.4-10.4); MONOCYTES 8.8 % (2-11); NEUTROPHILS 74.6 % (40-80); PLATELET COUNT 230 10x3/uL (130-400); RBC 4.27 10x6/uL (4.20-6.10); RDW 14.5 % (11.5-14.5)
[2017-04-27 06:27] LABS: ALBUMIN 2.6 g/dL (3.4-5.0); ALKALINE PHOSPHATASE 38 U/L (46-116); ALT (SGPT) 13 U/L (10-68); CALC OSMOLALITY 267 mosm/kg (275-300); CALCIUM 9.1 mg/dL (8.5-10.1); CARBON DIOXIDE 26.5 mmol/L (21.0-32.0); CHLORIDE - SERUM 99 mmol/L (98-107); CREATININE - SERUM 0.6 mg/dL (0.6-1.3); GLUCOSE 108 mg/dL (74-106); POTASSIUM - SERUM 4.3 mmol/L (3.5-5.1); PROTEIN - SERUM 6.7 g/dL (6.4-8.2); SODIUM 134 mmol/L (136-145); UREA NITROGEN 10 mg/dL (7-18); eGFR NON AFRICAN AMERICAN > 90 mL/min (90-120)
--- NOTE | 2017-04-27 08:00 | NUR ---
ASSESSMENT PER FLOW SHET.PT WITHOUT DISTRESS.DENIES NEEDS.CALL LIGHT IN REACH
[2017-04-27 09:20] VITALS: BP 139/84
[2017-04-27 12:31] VITALS: BP 143/82
[2017-04-27 16:05] VITALS: BP 131/82
--- NOTE | 2017-04-27 17:02 | NUR ---
HAS AMBULATED IN HALLS X2 TODAY.PT WITHOUT DISTRESS.MONITOR
--- NOTE | 2017-04-27 18:58 | NUR ---
REMAINS WITHOUT CHANGE FROM INITIAL SHIFT ASSESSMENT.CONT PLAN OF CARE
--- NOTE | 2017-04-27 21:21 | NUR ---
REC'D LYING IN BED RESTING. ALERT AND ORIENTED X4. REPORTED PAIN 4/10 WILL ADMIN PAIN MEDS PRESCRIBED. NO DISTRESS NOTED. HAD SOME MAXIPIME DUE AT 2014 AND HE REFUSED SAYING THAT "I AM ONLY SUPPOSE TO GET TWO DOSES A DAY AND NATALY HAD THE SECOND DOSE ALREADY. I DONT WANT THAT UNTIL 0415 IN THE AM. I WILL TALK TO THE DOCTOR ABOUT IT IN THE MORNING." THE ORDER IS FOR Q8HRS. REFUSED THE VANCOMYICIN THAT IS DUE AT 2300 WELL. WILL REPORT TO THE DAY SHIFT NURSE IN AM. INSTRUCTED TO CALL IF NEEDED ANYTHING, VERBALIZED UNDERSTANDING. ALSO IS REFUSING MIDNIGHT VITAL SIGNS. BED LOW, LOCKED, CALL LIGHT IN REACH. WILL CONT TO MONITOR.
[2017-04-27 21:27] VITALS: BP 134/72
[2017-04-28 04:00] VITALS: BP 149/87
--- NOTE | 2017-04-28 04:38 | NUR ---
PT RESTING, QUIETLY, EYES CLOSED. RESP EVEN, UNLABORED. NO DISTRESS NOTED. CONTINUE TOLL LINE MECHANIC'S PLAN OF CARE.
--- NOTE | 2017-04-28 07:35 | NUR ---
PT AOX4 RESP EVEN AND NONLABORED PT DENIES NEEDS AT THIS TIME IV TO LEFT SUBCLAVIAN CHEST PORT PATENT AND INTACT AT THIS TIME SRX2 BED AT LOWEST SETTING CALL LIGHT WITHIN REACH WILL CONTINUE TO MONITOR
[2017-04-28 08:35] VITALS: BP 133/83
[2017-04-28 10:01] LABS: BASOPHILS 0.2 % (0-2); EOSINOPHILS 2.4 % (0-7); HEMATOCRIT 38.1 % (42.0-54.0); IMMATURE GRANULOCYTES 0.2 % (0-5); LYMPHOCYTES 11.9 % (15-50); MCH 27.8 pg (26.0-34.0); MCHC 31.5 g/dL (31.0-37.0); MCV 88.2 fL (80.0-100.0); MEAN PLATELET VOLUME 8.9 fL (7.4-10.4); MONOCYTES 5.6 % (2-11); NEUTROPHILS 79.7 % (40-80); PLATELET COUNT 268 10x3/uL (130-400); RBC 4.32 10x6/uL (4.20-6.10); RDW 14.5 % (11.5-14.5); WBC 6.7 10x3/uL (4.8-10.8)
[2017-04-28 10:22] LABS: ALBUMIN 2.7 g/dL (3.4-5.0); ALKALINE PHOSPHATASE 35 U/L (46-116); ALT (SGPT) 16 U/L (10-68); CALC OSMOLALITY 264 mosm/kg (275-300); CALCIUM 8.9 mg/dL (8.5-10.1); CARBON DIOXIDE 26.7 mmol/L (21.0-32.0); CHLORIDE - SERUM 98 mmol/L (98-107); CREATININE - SERUM 0.7 mg/dL (0.6-1.3); GLUCOSE 150 mg/dL (74-106); POTASSIUM - SERUM 3.9 mmol/L (3.5-5.1); PROTEIN - SERUM 6.7 g/dL (6.4-8.2); SODIUM 131 mmol/L (136-145); UREA NITROGEN 11 mg/dL (7-18); eGFR NON AFRICAN AMERICAN > 90 mL/min (90-120)
--- NOTE | 2017-04-28 11:43 | NUR ---
PT CHEST TUBE UNCLAMPED AT THIS TIME PT TOLERATED WITHOUT COMPLAINTS
[2017-04-28 12:29] VITALS: BP 138/80
--- NOTE | 2017-04-28 12:57 | NUR ---
Patient Name: DYLAN SONG Admission Status: Elective Accout number: [id number] Admission Date: 04-25-2017 : 1960 Admission Diagnosis:PLEURAL EFFUSION, NOT ELSEWHERE CLASSIFIED Attending: REAL Current LOS: 3 Anticipated DC Date: 04-30-2017 Planned Disposition: Home Primary Insurance: [employer] BLUE PPO Discharge Planning Comments: CM MET WITH PATIENT REGARDING DISCHARGE NEEDS AND PLANS. PATIENT STATED HE WILL TAKE A CAB HOME. PATIENT STATED THESE QUESTIONS WAS INSTRUSIVE AND SENSELESS AND HE DID NOT WANT TO ANSWER BUT WOULD. PATIENT STATED THE PERSON TO CONTACT WAS IN THE SYSTEM (ARIE SONG) [phone]. CM ASKED IF HE HAD ANY DME EQUIPMENT AND HE RAISED HIS VOICE AND SAID NONE!!!. PATIENTS PCP IS DR. NANCE AND PHARMACY IS [facility] AT [facility]. PATIENT REFUSED HOME HEALTH AND HAD NO NEEDS AT THIS TIME FOR DISCHARGE. CM WILL CONTINUE TO FOLLOW PATIENT WITH D/C NEEDS AND PLANS. PCP DR. NANCE [facility] [phone] ARIE SONG [phone] Hr Consultant: Shonna Johnson Is the patient Alert and Oriented? Yes 0 * How many steps to enter\exit or inside your home? 3 W/RAILS 0 * PCP DR. NANCE 0 * Pharmacy [facility] 0 * Preadmission Environment Home Alone 0 * ADLs Independent 0 * Equipment None 0 * List name and contact numbers for known caregivers / representatives who currently or will assist patient after discharge: ARIE SONG (OTHER) [phone] 0 * Community resources currently utilized None 0 * Additional services required to return to the preadmission environment? Yes 0 * Can the patient safely return to the preadmission environment? Yes 0 * Has this patient been hospitalized within the prior 30 days at any hospital? No 0 Grand Total: 0
[2017-04-28 16:16] VITALS: BP 127/83
[2017-04-28 20:00] VITALS: BP 140/76
[2017-04-29] VITALS: BP 153/85
[2017-04-29 05:24] LABS: BASOPHILS 0.2 % (0-2); HEMATOCRIT 34.9 % (42.0-54.0); IMMATURE GRANULOCYTES 0.2 % (0-5); LYMPHOCYTES 10.7 % (15-50); MCH 27.7 pg (26.0-34.0); MCHC 31.5 g/dL (31.0-37.0); MCV 87.9 fL (80.0-100.0); MEAN PLATELET VOLUME 8.7 fL (7.4-10.4); MONOCYTES 11.8 % (2-11); NEUTROPHILS 73.1 % (40-80); PLATELET COUNT 266 10x3/uL (130-400); RBC 3.97 10x6/uL (4.20-6.10); RDW 14.6 % (11.5-14.5); WBC 6.3 10x3/uL (4.8-10.8)
[2017-04-29 05:25] LABS: ALBUMIN 2.6 g/dL (3.4-5.0); ALKALINE PHOSPHATASE 37 U/L (46-116); ALT (SGPT) 14 U/L (10-68); BILIRUBIN - TOTAL 0.47 mg/dL (0.2-1.3); CALC OSMOLALITY 264 mosm/kg (275-300); CARBON DIOXIDE 26.8 mmol/L (21.0-32.0); CHLORIDE - SERUM 98 mmol/L (98-107); CREATININE - SERUM 0.6 mg/dL (0.6-1.3); POTASSIUM - SERUM 3.9 mmol/L (3.5-5.1); PROTEIN - SERUM 6.6 g/dL (6.4-8.2); SODIUM 133 mmol/L (136-145); UREA NITROGEN 11 mg/dL (7-18); eGFR NON AFRICAN AMERICAN > 90 mL/min (90-120)
[2017-04-29 05:30] LABS: GLUCOSE 96 mg/dL (74-106)
[2017-04-29 05:39] VITALS: BP 151/90
--- NOTE | 2017-04-29 08:45 | NUR ---
PT AOX4 RESP EVEN AND NONLABORED PT DENIES NEEDS AT THIS TIME IV TO LEFT SUBCLAVIAN PATENT AND INTACT AT THIS TIME SRX2 BED AT LOWEST SETTING CALL LIGHT WITHIN REACH WILL CONTINUE TO MONITOR
[2017-04-29 08:52] VITALS: BP 167/81
[2017-04-29 12:52] VITALS: BP 125/87
--- NOTE | 2017-04-29 14:36 | NUR ---
NUTRITION F/U CHART REVIEWED, PT VISIT. TOLERATING REG DIET WITH 100% INTAKE RECENT MEALS. PT UP IN ROOM WITH NO COMPLAINTS. RD FOLLOWING
[2017-04-29 16:38] VITALS: BP 139/78
--- NOTE | 2017-04-29 19:30 | NUR ---
ALERT/ORIENTED X4. DENIES ANY NEEDS AT THIS TIME. CALL LIGHT IN REACH. WILL CONTINUE TO MONITOR
[2017-04-29 20:00] VITALS: BP 146/74
--- NOTE | 2017-04-29 21:30 | NUR ---
PRN NORCO ADMINISTERED AT THIS TIME.
[2017-04-30 04:00] VITALS: BP 172/91
--- NOTE | 2017-04-30 05:45 | NUR ---
LEFT SUBCLAVIAN PORT NEEDLE REMOVED WITH TIP INTACT. REPLACED WITH 1IN USING BOX SORTER WITHOUT DIFFICULTY, WITH BLOOD RETURN. DRESSING C/D/I. DENIES FURTHER NEEDS AT THIS TIME. WILL CONTINUE TO MONITOR.
[2017-04-30 06:48] LABS: BASOPHILS 0.2 % (0-2); EOSINOPHILS 5.3 % (0-7); HEMATOCRIT 36.2 % (42.0-54.0); HEMOGLOBIN 11.3 g/dL (13.5-17.5); IMMATURE GRANULOCYTES 0.2 % (0-5); LYMPHOCYTES 20.6 % (15-50); MCH 27.7 pg (26.0-34.0); MCHC 31.2 g/dL (31.0-37.0); MCV 88.7 fL (80.0-100.0); MEAN PLATELET VOLUME 9.5 fL (7.4-10.4); MONOCYTES 10.7 % (2-11); PLATELET COUNT 276 10x3/uL (130-400); RBC 4.08 10x6/uL (4.20-6.10); RDW 14.6 % (11.5-14.5); WBC 5.1 10x3/uL (4.8-10.8)
[2017-04-30 07:28] LABS: ALBUMIN 2.8 g/dL (3.4-5.0); ALKALINE PHOSPHATASE 34 U/L (46-116); ALT (SGPT) 17 U/L (10-68); CALC OSMOLALITY 271 mosm/kg (275-300); CALCIUM 9.1 mg/dL (8.5-10.1); CARBON DIOXIDE 26.4 mmol/L (21.0-32.0); CHLORIDE - SERUM 103 mmol/L (98-107); CREATININE - SERUM 0.6 mg/dL (0.6-1.3); GLUCOSE 87 mg/dL (74-106); POTASSIUM - SERUM 3.9 mmol/L (3.5-5.1); PROTEIN - SERUM 6.9 g/dL (6.4-8.2); SODIUM 137 mmol/L (136-145); UREA NITROGEN 10 mg/dL (7-18); eGFR NON AFRICAN AMERICAN > 90 mL/min (90-120)
--- NOTE | 2017-04-30 08:00 | NUR ---
PT AOX4 RESP EVEN AND NONLABORED IV TO LEFT SUBCLAVIAN PATENT AND INTACT AT THIS TIME PT DENIES NEEDS AT THIS TIME SRX2 BED AT LOWEST SETTING CALL LIGHT WITHIN REACH WILL CONTINUE TO MONITOR
[2017-04-30 08:54] VITALS: BP 162/80
[2017-04-30 13:04] VITALS: BP 156/82
[2017-04-30 17:34] VITALS: BP 172/98
--- NOTE | 2017-04-30 19:20 | NUR ---
RECV'D REPORT FROM KIERRA. PT AOX4, DENIES ANY PAIN AT THIS TIME. LEFT SIDE CHEST TUBE TO WATER SEAL, DRESSING C/D/I. CALL LIGHT IN REACH. WILL CONTINUE TO MONITOR.
[2017-04-30 20:00] VITALS: BP 138/60
--- NOTE | 2017-04-30 20:57 | NUR ---
PRN NORCO ADMINISTERED AT THIS TIME.
[2017-05-01 04:00] VITALS: BP 138/90
[2017-05-01 05:54] LABS: BASOPHILS 0.2 % (0-2); EOSINOPHILS 4.5 % (0-7); HEMATOCRIT 35.1 % (42.0-54.0); HEMOGLOBIN 10.9 g/dL (13.5-17.5); IMMATURE GRANULOCYTES 0.4 % (0-5); LYMPHOCYTES 17.5 % (15-50); MCH 27.6 pg (26.0-34.0); MCHC 31.1 g/dL (31.0-37.0); MCV 88.9 fL (80.0-100.0); MEAN PLATELET VOLUME 8.6 fL (7.4-10.4); MONOCYTES 12.4 % (2-11); PLATELET COUNT 287 10x3/uL (130-400); RBC 3.95 10x6/uL (4.20-6.10); RDW 14.6 % (11.5-14.5); WBC 5.3 10x3/uL (4.8-10.8)
[2017-05-01 06:23] LABS: ALBUMIN 2.7 g/dL (3.4-5.0); ALKALINE PHOSPHATASE 36 U/L (46-116); ALT (SGPT) 17 U/L (10-68); BILIRUBIN - TOTAL 0.37 mg/dL (0.2-1.3); CALC OSMOLALITY 269 mosm/kg (275-300); CALCIUM 8.9 mg/dL (8.5-10.1); CARBON DIOXIDE 25.7 mmol/L (21.0-32.0); CHLORIDE - SERUM 101 mmol/L (98-107); CREATININE - SERUM 0.6 mg/dL (0.6-1.3); GLUCOSE 84 mg/dL (74-106); POTASSIUM - SERUM 3.8 mmol/L (3.5-5.1); PROTEIN - SERUM 6.7 g/dL (6.4-8.2); SODIUM 136 mmol/L (136-145); UREA NITROGEN 10 mg/dL (7-18); eGFR NON AFRICAN AMERICAN > 90 mL/min (90-120)
--- NOTE | 2017-05-01 07:30 | NUR ---
ASSESSMENT COMPLETE. L PORT SL. L CHEST TUBE TO WATERSEAL. REDNESS AND DRY FLAKY SKIN NOTED TO FACE. DENIES ANY NEEDS AT THIS TIME.
[2017-05-01 08:32] VITALS: BP 165/84
--- NOTE | 2017-05-01 08:36 | NUR ---
MORPHINE GIVEN SLOW IVP FOR COMPLAINT OF PAIN.
--- NOTE | 2017-05-01 12:00 | NUR ---
NO CHANGES NOTED AT PRESENT.
[2017-05-01 12:03] VITALS: BP 150/89
[2017-05-01] MEDS ORDERED: LISINOPRIL10 MG PO (14:43)
[2017-05-01] MEDS ORDERED: BENZONATATE200 MG PO (14:43)
[2017-05-01] MEDS ORDERED: MUCINEX DM ER1 EAC1 PO (14:43)
--- NOTE | 2017-05-01 14:54 | NUR ---
CM REASSESSMENT NOTE: PATIENT TO DISCHARGE TODAY AFTER TEACHING BY IR AFTER CT D/C'D. PATIENT STATED HE WILL CALL A CAB HIMSELF AT DISCHARGE. PATIENT REFUSED HOME HEALTH AND HAD NO OTHER NEEDS.
[2017-05-01 16:00] VITALS: BP 158/84
--- NOTE | 2017-05-01 16:00 | NUR ---
LISANDRA NEEDLE REMOVED FROM INFUSAPORT AFTER FLUSHING WITH HEPARIN AND SALINE.
--- NOTE | 2017-05-01 17:30 | NUR ---
DISCHARGE TEACHING GIVEN TO PATIENT. VOICED UNDERSTANDING. STATES HE FEELS COMFORTABLE EMPTYING AND RECORDING DRAIN OUTPUT.
--- NOTE | 2017-05-01 17:35 | NUR ---
DC'D HOME WITH BELONGINGS.
== END 2017-05-01 17:35 | disposition home or self-care (01) | DRG 177 ==
LOC: D.OPS 06:48 → D.MS 06:48 → D.CT 09:00 → D.SP 09:00 → D.OPS 09:00 → D.MS 11:25 → D.OPS 11:26 → D.CT 13:00 → D.MS 05-01 17:35
PROVIDERS: Family Medicine; Internal Medicine Pulmonary Disease; Radiology Diagnostic Radiology; ADMIT Family Medicine
PROC: 0W9B30Z Drainage of Left Pleural Cavity with Drainage Device, Percutaneous Approach (ICD-10-PCS; 2017-04-25)
PROC: 0W9G3ZZ Drainage of Peritoneal Cavity, Percutaneous Approach (ICD-10-PCS; principal; 2017-04-25 09:00)
DX: J86.9 Pyothorax without fistula (principal); J18.9 Pneumonia, unspecified organism; J90 Pleural effusion, not elsewhere classified; C18.9 Malignant neoplasm of colon, unspecified; C78.6 Secondary malignant neoplasm of retroperitoneum and peritoneum; C77.2 Secondary and unspecified malignant neoplasm of intra-abdominal lymph nodes; E87.1 Hypo-osmolality and hyponatremia; J98.11 Atelectasis; E46 Unspecified protein-calorie malnutrition; K91.872 Postprocedural seroma of a digestive system organ or structure following a digestive system procedure; I10 Essential (primary) hypertension; F10.20 Alcohol dependence, uncomplicated; I89.8 Other specified noninfective disorders of lymphatic vessels and lymph nodes; Z68.25 Body mass index [BMI] 25.0-25.9, adult; Y83.8 Other surgical procedures as the cause of abnormal reaction of the patient, or of later complication, without mention of misadventure at the time of the procedure; Y82.8 Other medical devices associated with adverse incidents

== ENCOUNTER 2018-03-10 05:52 | Day surgery (SDC) | payer BC ==
[~2018-03-10] VITALS: Ht 177.8 cm; Wt 86.2 kg
--- NOTE | ~2018-03-10 | OP ---
PATIENT NAME: DYLAN SONG MEDICAL RECORD: [id number] :58 LOCATION:D.OPS ADMISSION DATE: SURGEON: LUKE GREENWOOD MD DATE OF OPERATION: 03/10/2018 PREOPERATIVE DIAGNOSES: 1. History of colon cancer. 2. Ventral incisional hernia. 3. Hypertension. POSTOPERATIVE DIAGNOSES: 1. History of colon cancer. 2. Ventral incisional hernia. 3. Hypertension. PROCEDURES: 1. Screening colonoscopy with biopsy. 2. Ventral hernia repair with 8 x [address] mesh. 3. Left subclavian vein port removal. SURGEON: Luke Greenwood MD TANK FURNACE OPERATOR: Monae Mora APRN REPORT OF OPERATION: The patient was placed in the left lateral decubitus position and an Olympus endoscope was advanced through the anus. As we advanced the scope, we were able to traverse through the sigmoid and left colon. We passed the hepatic flexure and we were able to get to the ileocolonic anastomosis in the distal transverse colon. The anastomosis appeared to be normal in size with no signs of any masses or lesions present. Due to unusual angulation, I was not able to advance the scope through the anastomosis into the small bowel. The anastomosis was at approximately 95 cm. As we pulled back the scope at 85 cm, there was a submucosal firm lesion present. We performed some cold biopsies of the tissue above this and including a bite of the subcutaneous lesion. This appeared to be an old granulomatous type lesion and appeared benign. We did not completely excise this lesion. As we pulled back, at 75 cm, there was a benign appearing polyp. This was completely excised with hot forceps. As we continued our pullback, the patient was noted to have multiple small hyperplastic polyps and a scant amount of diverticula in the sigmoid colon. Retroflexed views of the anus and rectum showed no signs of any internal hemorrhoids visible and no fissures or fistulas were seen externally. At this point, the insufflation and the scope were removed. We then placed the patient in the supine position and the abdomen and left chest were prepped and draped in sterile fashion. A longitudinal incision was made around the patient's umbilicus. Electrocautery was used to dissect through the subcutaneous tissues. The patient had a very thin film of fascia that was present with multiple fascial defects with the largest one of these being just to the left of midline in the lower aspect of the left upper quadrant. This was approximately 3 cm in greatest diameter. The patient had 2 other smaller hernia defects present in the midline. One of them about a centimeter in size just below the umbilicus and another one approximately a centimeter in size just above the umbilicus. These fascial bridges were all opened up and we entered the abdominal cavity. There was a scant amount of adhesions present to the anterior abdominal wall and this was teased down carefully with electrocautery and blunt dissection. We then elevated the fatty tissue off of the fascia in all directions. At this OPERATIVE REPORT [id number] DYLAN SONG, we can measure out the hernia defect and it was approximately 8 cm in length. A 12 x [address] mesh was inserted in an underlay fashion and sutured down on all 4 sides using multiple interrupted 0 Prolenes. We then irrigated out the wound and assured there was no sign of any bleeding. The fascia was then closed in the midline overlying the mesh using running #1 loop PDS' times 2. We irrigated out the wound one last time and assured there was no sign of any bleeding. The subcutaneous tissues were reapproximated with interrupted 3-0 Vicryl and the skin was closed with running subcutaneous 5-0 Monocryl. We approached the left upper chest and a transverse incision was made overlying the port. The port was dissected free including 2 sutures, which were holding it in place. These were all excised and suture was placed at the base of the catheter. The port and catheter were removed and the suture was tied down tightly. We then reapproximated the subcutaneous tissues with interrupted 3-0 Vicryl and the skin was closed with running subcutaneous 5-0 Monocryl. The wounds were then dressed appropriately. COMPLICATIONS: None. CONDITION: Stable. ANESTHESIA: General endotracheal. BLOOD LOSS: 30 mL. TRANSINT:[id number] Voice Confirmation ID: [id number] DOCUMENT ID: [id number] LUKE GREENWOOD MD at 1110 CC: NATALIE NANCE and LAUREN ZAPATA MD [id number] DICTATION DATE: 03/10/18 1039 COM WRITER: 03/10/18 1121 [facility] 03/10/18 [facility] [address] [place] [address]
[~2018-03-10 05:52] MED LIST changes: +BENZONATATE200 MG PO; +LISINOPRIL10 MG PO; +MUCINEX DM ER1 EAC1 PO
[2018-03-10 06:13] LABS: BASOPHILS 0.6 % (0-2); EOSINOPHILS 3.4 % (0-7); HEMATOCRIT 45.9 % (42.0-54.0); HEMOGLOBIN 15.7 g/dL (13.5-17.5); MCH 32.3 pg (26.0-34.0); MCHC 34.2 g/dL (31.0-37.0); MCV 94.4 fL (80.0-100.0); MEAN PLATELET VOLUME 9.7 fL (7.4-10.4); MONOCYTES 10.9 % (2-11); NEUTROPHILS 40.1 % (40-80); RBC 4.86 10x6/uL (4.20-6.10); WBC 3.6 10x3/uL (4.8-10.8)
[2018-03-10 06:23] LABS: APTT 28.2 SECONDS (22.8-39.4)
[2018-03-10 06:24] LABS: INR 0.93 (0.85-1.17); PROTIME 12.1 SECONDS (11.6-15.0)
[2018-03-10 06:34] LABS: ALBUMIN 3.5 g/dL (3.4-5.0); ALKALINE PHOSPHATASE 62 U/L (46-116); ALT (SGPT) 53 U/L (10-68); BILIRUBIN - TOTAL 1.27 mg/dL (0.2-1.3); CALC OSMOLALITY 274 mosm/kg (275-300); CALCIUM 9.2 mg/dL (8.5-10.1); CARBON DIOXIDE 28.2 mmol/L (21.0-32.0); CHLORIDE - SERUM 100 mmol/L (98-107); CREATININE - SERUM 0.7 mg/dL (0.6-1.3); GLUCOSE 86 mg/dL (74-106); POTASSIUM - SERUM 3.8 mmol/L (3.5-5.1); SODIUM 139 mmol/L (136-145); UREA NITROGEN 6 mg/dL (7-18); eGFR NON AFRICAN AMERICAN > 90 mL/min (90-120)
[2018-03-10 06:35] LABS: PLATELET COUNT 143 10x3/uL (130-400)
[2018-03-10 07:25] VITALS: BP 159/97; Ht 177.8 cm; Wt 86.2 kg
[2018-03-10] MEDS ORDERED: HYDROCODONE-APA1 TAB PO (10:31)
[2018-03-10] MEDS ORDERED: CYCLOBENZAPRINE10 MG PO (10:31)
== END 2018-03-10 17:35 | disposition home or self-care (01) ==
LOC: D.OPS 05:52 → D.PAN 12:15 → D.OPS 17:35
PROVIDERS: Anesthesiology; Surgery
DX: Z12.11 Encounter for screening for malignant neoplasm of colon (principal); K43.2 Incisional hernia without obstruction or gangrene; C49.4 Malignant neoplasm of connective and soft tissue of abdomen; D12.4 Benign neoplasm of descending colon; K63.5 Polyp of colon; K57.30 Diverticulosis of large intestine without perforation or abscess without bleeding; Z85.038 Personal history of other malignant neoplasm of large intestine; I10 Essential (primary) hypertension; Z45.2 Encounter for adjustment and management of vascular access device; Z01.812 Encounter for preprocedural laboratory examination

== ENCOUNTER 2018-09-22 06:57 | Outpatient (CLI) | payer BC ==
[~2018-09-22] VITALS: Ht 177.8 cm; Wt 87.8 kg
[~2018-09-22 06:57] MED LIST changes: +CYCLOBENZAPRINE10 MG PO
[2018-09-22 07:31] LABS: BASOPHILS 0.4 % (0-2); EOSINOPHILS 4.8 % (0-7); HEMATOCRIT 42.4 % (42.0-54.0); HEMOGLOBIN 14.3 g/dL (13.5-17.5); IMMATURE GRANULOCYTES 0.2 % (0-5); MCH 32.9 pg (26.0-34.0); MCHC 33.7 g/dL (31.0-37.0); MCV 97.5 fL (80.0-100.0); MEAN PLATELET VOLUME 9.8 fL (7.4-10.4); MONOCYTES 11.9 % (2-11); NEUTROPHILS 43.7 % (40-80); RBC 4.35 10x6/uL (4.20-6.10); WBC 4.8 10x3/uL (4.8-10.8)
[2018-09-22 07:35] LABS: INR 0.9 (0.85-1.17); PROTIME 11.6 SECONDS (11.6-15.0)
[2018-09-22 07:36] LABS: APTT 27.3 SECONDS (22.8-39.4)
[2018-09-22 07:37] LABS: PLATELET COUNT 187 10x3/uL (130-400)
[2018-09-22 07:46] VITALS: BP 158/88; Ht 177.8 cm; Wt 87.8 kg
[2018-09-22 07:58] LABS: CALC OSMOLALITY 286 mosm/kg (275-300); CALCIUM 9.3 mg/dL (8.5-10.1); CHLORIDE - SERUM 104 mmol/L (98-107); CREATININE - SERUM 0.9 mg/dL (0.6-1.3); GLUCOSE 122 mg/dL (74-106); POTASSIUM - SERUM 4.4 mmol/L (3.5-5.1); SODIUM 143 mmol/L (136-145); UREA NITROGEN 15 mg/dL (7-18); eGFR NON AFRICAN AMERICAN > 90 mL/min (90-120)
--- NOTE | 2018-09-22 10:46 | NUR ---
1020 SEE POST PROCEDURE CHECKLIST FOR VITAL SIGN TRENDS. 1035 REG DIET SERVED. DRESSING CDI NO HEMATOMA.
== END 2018-09-22 14:30 | disposition home or self-care (01) ==
LOC: D.SP 06:57
PROVIDERS: General Practice; ATTEND Surgery
DX: C78.6 Secondary malignant neoplasm of retroperitoneum and peritoneum (principal); Z85.038 Personal history of other malignant neoplasm of large intestine; Z01.812 Encounter for preprocedural laboratory examination

== ENCOUNTER 2019-01-21 07:16 | Day surgery (SDC) | payer BC ==
[~2019-01-21] VITALS: Ht 177.8 cm; Wt 86.2 kg
--- NOTE | ~2019-01-21 | OP ---
PATIENT NAME: DYLAN SONG MEDICAL RECORD: [id number] :58 LOCATION:D.OPS ADMISSION DATE: SURGEON: SEBASTIAN GREENWOOD MD DATE OF OPERATION: 01/21/2019 PREOPERATIVE DIAGNOSES: 1. Metastatic colon cancer. 2. Hypertension. POSTOPERATIVE DIAGNOSES: 1. Metastatic colon cancer. 2. Hypertension. PROCEDURE: Left subclavian vein PowerPort placement. SURGEON: Sebastian Greenwood MD REPORT OF OPERATION: The patient's left chest was prepped and draped in sterile fashion. A needle was used to cannulate the left subclavian vein and a guidewire was advanced with ease. Fluoro was used to note that the wire was in good position in the venous system. A skin incision was made on the left superior lateral chest and a subcutaneous pouch was made over the pectoral fascia. The catheter was tunneled between this pouch and the wire exit site. The port was then sutured to the pectoral fascia using interrupted 2-0 Prolenes times 2. The catheter was cut with a beveled tip at 25 cm. The dilator trocar device was placed over the wire and the wire and dilator were removed. The catheter tip was advanced through the trocar and the trocar was then removed. The catheter tip was noted to be resting in good position at the right atrial superior vena caval junction. The catheter aspirated nonpulsatile dark blood and flushed easily with heparinized saline. The subcutaneous tissues were then reapproximated with interrupted 3-0 Vicryl and the skin was closed with running subcutaneous 5-0 Monocryl. COMPLICATIONS: None. CONDITION: Stable. ANESTHESIA: General endotracheal and local. BLOOD LOSS: Minimal. TRANSINT:[id number] Voice Confirmation ID: [id number] DOCUMENT ID: [id number] SEBASTIAN GREENWOOD MD CC: DYLAN WILKS [id number] DICTATION DATE: 01/21/19 1217 INSTRUCTIONAL PARAPROFESSIONAL: 01/21/19 1354 [facility] [address] [place] [id number]
[2019-01-21 07:36] LABS: HEMATOCRIT 34.4 % (42.0-54.0); MCH 31.4 pg (26.0-34.0); MCHC 34.9 g/dL (31.0-37.0); MCV 90.1 fL (80.0-100.0); MEAN PLATELET VOLUME 9.6 fL (7.4-10.4); PLATELET COUNT 223 10x3/uL (130-400); RBC 3.82 10x6/uL (4.20-6.10); RDW 12.5 % (11.5-14.5); WBC 6.2 10x3/uL (4.8-10.8)
[2019-01-21 07:50] LABS: CALC OSMOLALITY 266 mosm/kg (275-300); CALCIUM 9.5 mg/dL (8.5-10.1); CARBON DIOXIDE 29.1 mmol/L (21.0-32.0); CHLORIDE - SERUM 95 mmol/L (98-107); CREATININE - SERUM 0.8 mg/dL (0.6-1.3); GLUCOSE 124 mg/dL (74-106); POTASSIUM - SERUM 3.8 mmol/L (3.5-5.1); SODIUM 133 mmol/L (136-145); UREA NITROGEN 12 mg/dL (7-18); eGFR NON AFRICAN AMERICAN > 90 mL/min (90-120)
[2019-01-21 08:16] LABS: EOSINOPHILS 1 % (0-7); LYMPHOCYTES 23 % (15-50); MONOCYTES 15 % (2-11); NEUTROPHILS 48 % (40-80); PLATELET ESTIMATE NORMAL
[2019-01-21 08:17] LABS: ANISOCYTOSIS OCC
[2019-01-21 09:23] VITALS: BP 127/74; Ht 177.8 cm; Wt 86.2 kg
[2019-01-21] MEDS ORDERED: HYDROCODON-ACE1 EA10 PO (12:19)
== END 2019-01-21 14:15 | disposition home or self-care (01) ==
LOC: D.OPS 07:16 → D.PAN 09:00 → D.OPS 09:00 → D.PAN 09:30 → D.OPS 14:15
PROVIDERS: ATTEND Surgery
DX: C18.9 Malignant neoplasm of colon, unspecified (principal); C79.9 Secondary malignant neoplasm of unspecified site; I10 Essential (primary) hypertension; Z01.812 Encounter for preprocedural laboratory examination